=== PATIENT | female | born 1945 | race Caucasian/White ===

== ENCOUNTER → 2016-06-03 | Outpatient (CLI) | payer MEDICARE ==
[~2016-06-03] MED LIST: AMLO10TA2 PO; ASPI-983 PO; ATOR20TA49 PO; BISO1TAB6 PO; FLUT1DIS26 IH; LEVO50TA6 PO; LOSA100T28 PO; METF1000 PO; RT-ALBUINH IH
--- OUTSIDE RECORDS SUMMARY | 2016-06-03 13:58 | XMS REPORT | Continuity of Care Document ---
Author Author [facility] Organization [facility] Address Unknown Phone Unavailable Care Team Providers Care Key Attendant Name Role Phone Marcell Mooney PCP [phone] Source Comments Some departments are not documenting in the electronic medical record. If you do not see the information that you expected, contact Release of Information in the Health Information Management department at [phone] for further assistance in locating additional records.[facility] Active Allergies and Adverse Reactions Allergen Noted Date Severity Reactions Comments Iodine 04/06/2008 NAUSEA AND VOMITING Shellfish Morphine 12/05/2008 NAUSEA ONLY Nitrous Oxide 04/06/2008 SEE COMMENTS Asthma Shellfish Containing 01/13/2009 Products Current Medications Prescription Sig. Disp. Refills Start End Date Status Date PROAIR HFA IN Inhale 2 Puffs by mouth Active three times daily. bisoprolol/hydrochlorothi Take 1 Tab by mouth twice Active azide (ZIAC) 10/6.25 mg daily. Takes at night tablet amLODIPine (NORVASC) 5 mg Take 10 mg by mouth Active PO tablet daily. metFORMIN-XR(+) Take 1,000 mg by mouth Active (GLUCOPHAGE XR) 500 mg PO twice daily. tablet levothyroxine (SYNTHROID) Take 50 mcg by mouth Active 50 mcg tablet daily. CALCIUM PO Take by mouth daily. Active Goal is to take 800 qid, but sometimes cannot stomach taking that many pills per day. ERGOCALCIFEROL (VITAMIN Take 4,000 Units by mouth Active D2) (VITAMIN D PO) daily. aspirin 325 mg tablet Take 325 mg by mouth Active daily. budesonide/formoterol Inhale 1 Puff by mouth Active (SYMBICORT) 160/4.5 mcg twice daily. HFAA inhalation Active Problems Problem Noted Date Osteoporosis 12/26/2012 Other closed fractures of distal end of radius (alone) 05/23/2008 Resolved Problems Problem Noted Date Resolved Date Hyperparathyroidism (HCC) 01/13/2009 01/07/2016 Overview: History Of Present Illness: I recently saw Mariaelena Castro today in the office postoperatively in followup. As you know, she is a very pleasant 63-year-old woman with history of primary hyperparathyroidism from a parathyroid adenoma in the right inferior position, who underwent minimally invasive parathyroidectomy on December 05, 2008. Intraoperatively, she was noted to have a large adenoma weighing 0.75 g and her PTH drop from her baseline of 196 to a final level of 11. Since her surgery, she has noted some dramatic improvement in her symptoms including resolution of her joint and bone pain as well as increased level of alertness. She denies any complaints at this time and is here for her 2-week postoperatively follow visit. This entry was abstracted from the [facility] Medical Record. The original author is Edgar Skinner. Social History Tobacco Use Types Packs/Day Years Used Date Never Smoker Smokeless Tobacco: Never Used Alcohol Use Drinks/Week oz/Week Comments No Last Filed Vital Signs Vital Sign Reading Time Taken Blood Pressure 134/68 01/07/2016 10:50 AM CDT Pulse 69 01/01/2014 11:05 AM CDT Temperature - - Respiratory Rate 17 12/24/2010 10:22 AM CDT Height 1.516 m (4' 11.7") 01/07/2016 10:50 AM CDT Weight 87.998 kg (194 lb) 01/07/2016 10:50 AM CDT Body Mass Index 38.29 01/07/2016 10:50 AM CDT Oxygen Saturation - - Plan of Care Health Maintenance Due Date Last Done Comments Hepatitis C Screening 1945 Physical (Comprehensive) 07/19/1954 Exam Pertussis Vaccine 07/19/1958 Tetanus Vaccine 07/19/1964 Breast Cancer Screening 1987 Colorectal Cancer 07/19/1997 Screening Shingles Vaccine 2007 Prevnar/Pneumovax (#1) 07/19/2012 Influenza Vaccine 11/28/2015 Osteoporosis Screening Completed 01/07/2016, 01/04/2014, 01/06/2013 Additional history exists Results from Last 3 Months Not on file
--- NOTE | 2016-06-04 08:20 | ECHOCARDIOGRAPHY REPORT ---
PROCEDURE PHYSICIAN: INOCENTE RICHARDS DATE OF PROCEDURE: 06/03/2016 TWO DIMENSIONAL ECHOCARDIOGRAM REPORT PRIMARY PHYSICIAN: OTHER PHYSICIAN: REFERRING PHYSICIAN: Dr. Mooney ORDERING PHYSICIAN: INDICATION FOR THE PROCEDURE: MEASUREMENTS DERIVED VALUES LV DIAMETER (LAX) NORMALS NORMALS Diastolic 3.7 (3.6-5.2) Eject. Fract. 60% (60%+/-6%) Systolic (2.3-3.9) Diastolic Vol. % Shortening (0.22-0.42) Systolic Vol. Aortic Root IVS THICKNESS Diastolic 1.2 (0.6-1.1) LVPW THICKNESS Diastolic 1.2 (0.6-1.1) LA DIAMETER Systolic 3.1 (2.1-3.7) FINDINGS: 1. Technically difficult study. 2. The left ventricle is normal in size, endocardium was not well visualized in all segments. Overall systolic function appeared to be normal. Estimated ejection fraction 60%. 3. The left atrium is normal in size. No clot or thrombus were seen within the left atrium. 4. The right atrium and right ventricle are normal in size. No clot or thrombus were seen within the right side. 5. Mitral valve is normal in morphology with mild mitral regurgitation noted by color Doppler flow. No mitral valve prolapse. No mitral valve stenosis. 6. Aortic valve is trileaflet with normal opening and closing pattern. No significant aortic stenosis or regurgitation was seen. 7. Tricuspid valve is normal in morphology with mild tricuspid regurgitation noted by color Doppler flow. Doppler across tricuspid valve estimated pulmonary artery pressure of 9+ right atrial pressure. 8. Pulmonic valve is functioning normally. 9. No pericardial effusion. IN CONCLUSION: 1. Technically difficult study. 2. Normal left ventricular size and systolic function. Estimated ejection fraction 60%. 3. Mild mitral and tricuspid regurgitation. 4. Estimated pulmonary artery pressure of 15 mmHg. Job ID: [id number] Dictated Date: 06/03/2016 17:12:48 Development Manager Date: 06/04/2016 08:18:04 / john
== END ==
LOC: CARD 13:53
PROVIDERS: ATTEND Internal Medicine Cardiovascular Disease
DX: R07.89 Other chest pain (principal); I10 Essential (primary) hypertension; E78.1 Pure hyperglyceridemia; R06.02 Shortness of breath; J45.909 Unspecified asthma, uncomplicated; E11.9 Type 2 diabetes mellitus without complications
CPT/HCPCS: 93306

== ENCOUNTER → 2016-06-10 | Outpatient (CLI) | payer MEDICARE ==
[~2016-06-10] MED LIST changes: +CATHETER FLUSH 10 ML SYR IV PRN; +REGADENOSON 0.4 MG/5 ML SYR (LEXISCAN) IV ONE
--- OUTSIDE RECORDS SUMMARY | 2016-06-10 11:44 | XMS REPORT | Continuity of Care Document ---
Author Author [facility] Organization [facility] Address Unknown Phone Unavailable Care Team Providers Care Sifting Operator Name Role Phone Marcell Mooney PCP [phone] Source Comments Some departments are not documenting in the electronic medical record. If you do not see the information that you expected, contact Release of Information in the Health Information Management department at [phone] for further assistance in locating additional records.[facility] Active Allergies and Adverse Reactions Allergen Noted [...] visit. This entry was abstracted from the [facility] Medical Record. The original author is Edgar [...]
[2016-06-10 13:00] VITALS: BP 175/78
[2016-06-10 13:06] VITALS: BP 175/76
[2016-06-10 13:08] VITALS: BP 168/71
--- NOTE | 2016-06-11 08:50 | STRESS TEST ---
PROCEDURE PHYSICIAN: INOCENTE RICHARDS DATE OF PROCEDURE: 06/10/2016 LEXISCAN MYOVIEW STRESS TEST REPORT: REFERRING PHYSICIAN: Dr. Mooney. INDICATION FOR THE PROCEDURE: Chest pain. BASELINE HEART RATE: 72 BASELINE BLOOD PRESSURE: 175/78 BASELINE EKG: Sinus rhythm with no ischemic changes. IN SUMMARY: The patient was injected with 10.17 mCi of technetium 99 Myoview and the resting images were obtained. Then the patient received 0.4 mg of Lexiscan followed by 30 mCi of technetium 99 Myoview. Throughout the test, there were no EKG changes. The resting and stress images were reviewed and compared in the short axis, horizontal long axis, and vertical long axis views. Review of the images showed breast attenuation. There is reversible ischemia involving the mid to apical inferior wall and the anteroapical segment. SSS 5, SDS 5. TID value 1.03. On the gated images, the left ventricle appeared to be normal size with normal contractility. Calculated ejection fraction 74%. IN CONCLUSION: 1. The patient tolerated Lexiscan well. 2. Breast attenuation affecting the quality of the images with mild ischemia involving the mid to apical inferior wall and anteroapical segment. 3. Normal left ventricular size with normal contractility. Calculated ejection fraction 74%. Job ID: [id number] Dictated Date: 06/10/2016 15:53:00 Service Cashier Date: 06/11/2016 08:46:48 / john
== END ==
LOC: CARD 11:41
PROVIDERS: ATTEND Internal Medicine Cardiovascular Disease
DX: R07.89 Other chest pain (principal); I10 Essential (primary) hypertension; E78.1 Pure hyperglyceridemia; R06.02 Shortness of breath; J45.909 Unspecified asthma, uncomplicated; E11.9 Type 2 diabetes mellitus without complications
CPT/HCPCS: 78452; 93017

== ENCOUNTER 2016-06-16 12:38 | Day surgery (SDC) | payer MEDICARE ==
[2016-06-16] VITALS (7 sets, daily range): BP systolic 125–145; BP diastolic 56–77
[~2016-06-16] VITALS: Ht 154.9 cm; Wt 88.5 kg
[2016-06-16] MEDS ORDERED: HEParin (CATH LAB) 2,000 ML IV ONE (12:43)
[2016-06-16] MEDS ORDERED: LIDOCAINE 1% INJ 20 ML (XYLOCAINE) VIAL ONE (12:43)
[2016-06-16] MEDS ORDERED: NS IV 1000 ML 1,000 ML ONE (12:43)
[2016-06-16] MEDS ORDERED: NS IV 1000 ML 1,000 ML IV SCH ×3 (12:50→15:28)
[2016-06-16] MEDS ORDERED: FLUT1DIS26 IH (13:07)
[2016-06-16] MEDS ORDERED: LEVO50TA6 PO (13:07)
[2016-06-16] MEDS ORDERED: RT-ALBUINH IH (13:07)
[2016-06-16] MEDS ORDERED: AMLO10TA2 PO (13:07)
[2016-06-16] MEDS ORDERED: METF1000 PO (13:07)
[2016-06-16] MEDS ORDERED: ASPI-983 PO (13:07)
[2016-06-16] MEDS ORDERED: LOSA100T28 PO (13:07)
[2016-06-16] MEDS ORDERED: BISO1TAB6 PO (13:07)
[2016-06-16] MEDS ORDERED: ATOR20TA49 PO (13:07)
[2016-06-16 13:16] LABS: BILIRUBIN,URINE NEGATIVE (NEGATIVE); KETONES,URINE NEGATIVE (NEGATIVE); LEUKOCYTE ESTERASE ,URINE 1+ (NEGATIVE); NITRITE,URINE NEGATIVE (NEGATIVE); PH,URINE 5 (5-9); PROTEIN,URINE NEGATIVE (NEGATIVE); UROBILINOGEN,URINE NORMAL (NORMAL)
[2016-06-16 13:17] LABS: MEAN PLATELET VOLUME 9.7 FL (7.4-10.4); RED BLOOD COUNT 4.52 10^6/uL (4.35-5.85); RED CELL DISTRIBUTION WIDTH 13.2 % (10.0-14.5); WHITE BLOOD COUNT 7.3 10^3/uL (4.3-11.0)
[2016-06-16 13:27] LABS: SQUAMOUS EPITHELIAL CELL,UR 0-2 /HPF; WBC,URINE 0-2 /HPF
--- NOTE | 2016-06-16 13:29 | Diagnostic Imaging Report ---
INDICATION: Chest pain. DISCUSSION: A single portable upright view of the chest was obtained with comparison to 07/17/2006. Stable normal heart size. No focal consolidation, pleural fluid, or pneumothorax. No osseous abnormality. IMPRESSION: Negative portable chest. Dictated by: Dictated on workstation # [id number]
[2016-06-16 13:30] LABS: PROTHROMBIN TIME PATIENT 12.6 SEC (12.2-14.7)
[2016-06-16 13:39] LABS: ALANINE AMINOTRANSFERASE 23 U/L (0-55); ALBUMIN 4.4 G/DL (3.2-4.5); ANION GAP 11 MMOL/L (5-14); ASPARTATE AMINO TRANSFERASE 16 U/L (5-34); BILIRUBIN,TOTAL 0.9 MG/DL (0.1-1.0); BLOOD UREA NITROGEN 15 MG/DL (7-18); BUN/CREATININE RATIO 19; CALCIUM 9.2 MG/DL (8.5-10.1); CARBON DIOXIDE 25 MMOL/L (21-32); CHLORIDE 106 MMOL/L (98-107); CREATININE SERUM 0.79 MG/DL (0.60-1.30); GFR ESTIMATED > 60; GLUCOSE 130 MG/DL (70-105); POTASSIUM 3.8 MMOL/L (3.6-5.0); SODIUM 142 MMOL/L (135-145); TOTAL PROTEIN 7.5 G/DL (6.4-8.2)
[2016-06-16] MEDS ORDERED: FLU TRIvalent (5 YOA+) 2016-17 (AFLURIA) 0.5 ML IM ONE (13:45)
[2016-06-16] MEDS ORDERED: diphenhydrAMINE 50 MG/ML INJ (BENADRYL) ONE (14:08)
[2016-06-16] MEDS ORDERED: methylPREDNISolone 125 MG (Solu-MEDROL) VIAL ONE (14:08)
[2016-06-16] MEDS ORDERED: MIDAZOLAM 5 MG/5 ML (VERSED) VIAL ONE ×2 (14:08→14:54)
[2016-06-16] MEDS ORDERED: fentaNYL INJECTION 100 MCG/2 ML AMP ONE ×2 (14:08→14:54)
--- NOTE | 2016-06-16 15:28 | Cardiac Procedure Note-CS/ASA ---
Pre-Procedure Note Pre-Op Procedure Note H&P Reviewed The H&P was reviewed, patient examined and no changes noted. Date H&P Reviewed: Jun 16, 2016 Time H&P Reviewed: 15:28 Conscious Sedation Pre-Proced Time Reviewed: 15:28 ASA Class: 3 Airway Mallampati Classification: ([place] appropriate class) I. II. III, IV Lungs Heart ASA score ASA 1: a normal healthy patient ASA 2: a patient with a mild systemic disease (mid diabetes, controlled hypertension, obesity x ASA 3: a patient with a severe systemic disease that limits activity (angina , COPD, prior Myocardial infarction) ASA 4: a patient with an incapacitating disease that is a constant threat to life (CHF, renal failure) ASA 5: a moribund patient not expected to survive 24 hrs. (ruptured aneurysm) ASA 6: a declared brain patient whose organs are being harvested. For emergent operations, add the letter E after the classification Grade 3 Sedation Plan: Analgesia, Amnesia, Plan communicated to team members, Discussed options with patient/fam, Discussed risks with patient/fam Note The patient is an appropriate candidate to undergo the planned procedure, sedation, and anesthesia. The patient immediately re-assessed prior to indication. INOCENTE RICHARDS MD Jun 16, 2016 15:28
[2016-06-16] MEDS ORDERED: PATIENT MAY USE OWN MEDS, ALL PO SCH (15:30)
--- NOTE | 2016-06-16 15:31 | Discharge Inst-Post CATH ---
Discharge Inst-CATH Post Cardiac Cath D/C Inst Follow Up/Plan Hold Metfromin for [address] Whitman's office in 2-4 weeks CARDIAC CATH DISCHARGE INSTRUCTIONS *Hold Metformin for 48 hours post heart cath. ACTIVITY * Go Home directly and rest. * Limit activity of the leg (or wrist if it was used) for 7 days including aerobics, swimming, jogging, bicycling, etc. * Restrict stair-climbing for 7 days if possible, if not, climb up with your non -cath leg, then bring together on the same step. * Avoid lifting, pushing, pulling or excessive movement of the affected extremity for 7 days. * Customary sexual activity may be resumed after 2 days-use caution not to use a position that strains or causes pain to the affected extremity. * No driving for 24 hours. * NO SMOKING. * Avoid straining for bowel movements for 7 days. * Gentle walking on level ground is allowed. * Returning to work will depend on the type of procedure and the results. Your doctor will discuss this with you. CALL YOUR DOCTOR FOR ANY OF THE FOLLOWING: *If bleeding from the puncture site occurs- Apply gentle pressure to site with clean cloth and call your doctor or EMS. * If a knot or lump forms under the skin, increases in size, or causes pain. * If bruising appears to be worsening or moving further down your leg instead of disappearing. * Temperature above 101 F. CARE OF YOUR GROIN INCISION; * Bruising or purple discoloration of the skin near the puncture site is common. * You may shower only, no bathtub bathing for 5 days. Be careful to avoid slipping as your leg may feel stiff. * If a closure device was used on your femoral artery, please see the attached guide regarding care of the device and your leg. * REMOVE the dressing from your groin the next day after your procedure in the shower. CARE OF YOUR WRIST INCISION; * Bruising or purple discoloration of the skin near the puncture site is common. * You may shower. * DO NOT submerge wrist. * Remove dressing in 24 hours. INOCENTE WHITMAN MD Jun 16, 2016 15:31
[2016-06-16] MEDS ORDERED: CATHETER FLUSH 10 ML SYR IV PRN (16:30)
--- NOTE | 2016-06-17 09:57 | DISCHARGE SUMMARY ---
PROCEDURE PHYSICIAN: INOCENTE RICHARDS DATE OF PROCEDURE: 06/16/2016 REFERRING PHYSICIAN: Dr. Katherine Mooney. BRIEF HISTORY: Mrs. Castro is a 70-year-old lady with history of diabetes mellitus, hypertension, and hyperlipidemia. She has an abnormal stress test with anterior wall ischemia. She was scheduled for left heart catheterization, possible PTCA. PROCEDURE NOTE: After explaining the procedure to the patient, all pros and cons were explained. All questions were answered. The patient signed a consent, then she was placed on the cardiac catheterization laboratory. The right groin was prepped in a sterile fashion. Local anesthesia applied to the right groin. 6-[place] sheath was placed in the right femoral artery. Combination of right and left Iván catheter were used to access the right and left coronary system. Multiple views were obtained. Pigtail catheter advanced to the left ventricular cavity. Left ventricular pressure was done. No left ventriculogram was done. Pullback LV to aorta was done. The aortic arch angiogram was done. At the end of the procedure, sheath was removed. Mynx device deployed. Hemostasis achieved. FINDINGS: HEMODYNAMICS: LV pressure 153/21, end-diastolic pressure of 21, aortic pressure 142/61, mean of 89. No significant gradient across the aortic valve. ANATOMY: 1. Left main coronary artery is bifurcating to left anterior descending and left circumflex artery with no obstructive disease. 2. Left anterior descending artery is moderate in size with mild disease, nonobstructive disease. 3. Left circumflex artery is moderate in size with mild disease, nonobstructive disease. 4. Right coronary artery is small to moderate in size with mild disease. No significant obstructive disease. 5. No left ventriculogram was done. 6. Aortic arch appeared to be normal in size. No dissection or aneurysm. Origin of the innominate artery, carotid artery and subclavian artery appeared normal. CONCLUSION: 1. Mild coronary artery disease. No significant obstructive disease. 2. Normal aortic arch and great neck vessels. DISCUSSION AND RECOMMENDATION: Medical therapy is recommended. The stress test is abnormal probably due to extra cardiac attenuation. FINAL DIAGNOSIS: 1. Chest pain, nonspecific etiology. 2. Coronary artery disease. 3. Hypertension. 4. Hyperlipidemia. 5. Diabetes mellitus. Job ID: [id number] Dictated Date: 06/16/2016 15:36:22 Night Time Babysitter Date: 06/17/2016 09:55:03/priscilla
== END 2016-06-16 20:15 | disposition home or self-care (01) ==
LOC: CATH 12:38 → ICU 15:34 → CATH 20:15
PROVIDERS: ATTEND Internal Medicine Cardiovascular Disease
DX: R94.39 Abnormal result of other cardiovascular function study (principal); I25.10 Atherosclerotic heart disease of native coronary artery without angina pectoris; R07.89 Other chest pain; E11.9 Type 2 diabetes mellitus without complications; E78.5 Hyperlipidemia, unspecified; I10 Essential (primary) hypertension; J45.909 Unspecified asthma, uncomplicated; Z79.84 Long term (current) use of oral hypoglycemic drugs; Z79.899 Other long term (current) drug therapy
CPT/HCPCS: 36221; 36415; 71010; 80053; 81000; 85027; 85610; 85730; 87081; 93005; 93458

== ENCOUNTER 2017-11-14 09:39 | Emergency (ER) | payer MEDICARE ==
[~2017-11-14] VITALS: Ht 156.2 cm; Wt 88.0 kg
[~2017-11-14 09:39] MED LIST changes: -CATHETER FLUSH 10 ML SYR IV PRN; -METF1000 PO; +METF10002 PO; -REGADENOSON 0.4 MG/5 ML SYR (LEXISCAN) IV ONE
--- OUTSIDE RECORDS SUMMARY | 2017-11-14 09:43 | XMS REPORT | Clinical Summary ---
Author Author [facility] Organization [facility] Address Unknown Phone Unavailable Care Team Providers Care Interior Design Principal Name Role Phone Corin Dempsey MD Unavailable Edgar Skinner MD Unavailable Annabel Ramos MD Unavailable Katherine Mooney MD PCP Source Comments Some departments are not documenting in the electronic medical record. If you do not see the information that you expected, contact Release of Information in the Health Information Management department at [phone] for further assistance in locating additional records.[facility] Allergies Active Allergy Reactions Severity Noted Date Comments Iodine NAUSEA AND VOMITING 04/06/2008 Shellfish Morphine NAUSEA ONLY 12/05/2008 Nitrous Oxide SEE COMMENTS 04/06/2008 Asthma Shellfish Containing 01/13/2009 Products Current Medications [...] visit. This entry was abstracted from the [facility] Medical Record. The original author is Edgar Skniner. Family History Medical History Relation Name Comments Heart Disease Brother Heart Disease Father Thyroid Disease Father Stroke Mother Thyroid Disease Mother Heart Disease Sister Relation Name Status Comments Brother Alive Father Mother Sister Alive Social History Tobacco Use Types Packs/Day Years Used Date Never Smoker Smokeless Tobacco: Never Used Alcohol Use Drinks/Week oz/Week Comments No Sex Assigned at Date Recorded Not on file Last Filed Vital Signs Vital Sign Reading Time Taken Blood Pressure 134/68 01/07/2016 10:50 AM CDT Pulse 69 01/01/2014 11:05 AM CDT Temperature - - Respiratory Rate 17 12/24/2010 10:22 AM CDT Oxygen Saturation - - Inhaled Oxygen - - Concentration Weight 88 kg (194 lb) 01/07/2016 10:50 AM CDT Height 151.6 cm (4' 11.7") 01/07/2016 10:50 AM CDT Body Mass Index 38.27 01/07/2016 10:50 AM CDT Plan of Treatment Health Maintenance Due Date Last Done Comments HEPATITIS C SCREENING 1945 PHYSICAL (COMPREHENSIVE) 07/19/1954 EXAM PERTUSSIS VACCINE 07/19/1958 TETANUS VACCINE 07/19/1964 BREAST CANCER SCREENING 1987 COLORECTAL CANCER 07/19/1997 SCREENING SHINGLES RECOMBINANT 07/19/1997 VACCINE (1 of 2) PNEUMONIA (PCV13/PPSV23) 07/19/2012 VACCINES (1 of 2 - PCV13) INFLUENZA VACCINE 12/27/2017 OSTEOPOROSIS SCREENING Completed 01/07/2016, 01/04/2014, 01/06/2013, Additional history exists Results Not on filefrom Last 3 Months
--- OUTSIDE RECORDS SUMMARY | 2017-11-14 09:47 | XMS REPORT | CCD ---
Author Author Katherine Mooney Organization [facility] Address [address] [place] [address] Phone Care Team Providers Care D[employer] Farmer Name Role Phone Katherine Mooney PP Unavailable CCM Unavailable Summary Purpose Interface Exchange Insurance Providers Payer name Policy type / Coverage type Covered democrat ID Effective Begin Date Effective End Date WPS Medicare Part B [id number] 2014 Unknown [facility] [id number] 2014 Unknown Family history Sister Diagnosis Age At Onset No Family Disease Entered N/A Brother Diagnosis Age At Onset No Family Disease Entered N/A Brother Diagnosis Age At Onset No Family Disease Entered N/A Mother Diagnosis Age At Onset No Family Disease Entered N/A Father Diagnosis Age At Onset No Family Disease Entered N/A Social History Social History Element Codes Description Effective Dates Marital status Unknown 01/07/2011 Employment Unknown 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 Unknown Has never used illegal drugs 01/07/2011 Allergies, Adverse Reactions, Alerts Substance Reaction Codes Entered Date Inactivated Date Status Shellfish hives Unknown 03/04/2011 No Inactive Date Active Past Medical History Illness Codes Condition Status Onset Date Resolved Date Essential (primary) hypertension ICD-9: 401.1 ICD-10: I10 Active 05/25/2016 Unknown Hypothyroidism, unspecified ICD-9: 244.9 ICD-10: E03.9 Active 06/06/2015 Unknown Mixed hyperlipidemia ICD-9: 272.2 ICD-10: E78.2 Active 05/25/2016 Unknown Type 2 diabetes mellitus with hyperglycemia ICD-9: 250.02 ICD-10: E11.65 Active 06/06/2015 Unknown Encounter for general adult medical examination with abnormal findings ICD-9: V70.0 ICD-10: Z00.01 Active 07/16/2016 Unknown Mixed hyperlipidemia ICD-9: 272.4 ICD-10: E78.2 Active 06/06/2015 Unknown Cough ICD-9: 786.2 ICD-10: R05 Active 06/04/2016 Unknown Encounter for general adult medical examination without abnormal findings ICD-9: V70.0 ICD-10: Z00.00 Active 07/03/2015 Unknown Body mass index (BMI) 38.0-38.9, adult ICD-9: V85.38 ICD-10: Z68.38 Active 06/06/2015 Unknown Essential (primary) hypertension ICD-9: 401.9 ICD-10: I10 Active 06/06/2015 Unknown Primary hyperparathyroidism ICD-9: 252.01 ICD-10: E21.0 Active 06/06/2015 Unknown Depression Unknown Active 11/05/2014 Unknown Depression ICD-9: 311 Active 11/04/2014 Unknown Paronychia of finger of left hand ICD-9: 681.02 Active 2014 Unknown DIABETES TYPE II ICD-9 : 250.00 Active 07/17/2014 Unknown Asthma ICD-9: 493.90 Active 04/20/2014 Unknown Diabetes mellitus type 2, uncontrolled ICD-9: 250.02 Active Unknown Elevated lipids ICD-9 : 272.4 Active 04/20/2014 Unknown ESSENTIAL HYPERTENSION ICD-9: 401.9 Active 04/20/2014 Unknown Hypothyroidism ICD-9: 244.9 Active 04/20/2014 Unknown Need for pneumococcal vaccine ICD-9: V03.82 Active 07/12/2013 Unknown Hypothryroidism Unknown Active 04/22/2012 Unknown Hyperlipidemia Unknown Active 11/10/2011 Unknown Encounter for long-term (current) use of medications ICD-9: V58.69 Active 11/03/2011 Unknown Allergic reaction ICD- 9: 995.3 Active 07/14/2011 Unknown Itching ICD-9: 698.9 Active 07/14/2011 Unknown Tick bite ICD-9: 919.4 Active 07/14/2011 Unknown Bone pain ICD-9: 733.90 Active 06/03/2011 Unknown Asthma Unknown Active 01/07/2011 Unknown Diabetes Unknown Active 01/07/2011 Unknown Hypertension Unknown Active 01/07/2011 Unknown Osteoarthritis Unknown Active 01/07/2011 Unknown Osteoporosis Unknown Active 01/07/2011 Unknown DIETARY SURVEIL/NURSE DISCHARGE ICD-9: V65.3 Active 01/07/2011 Unknown OBESITY ICD-9: 278.00 Active 01/07/2011 Unknown Osteoporosis ICD-9: 733.00 Active 01/07/2011 Unknown Problems Condition Codes Effective Dates Condition Status Essential (primary) hypertension ICD-9: 401.1 ICD-10: I10 05/25/2016 Active Hypothyroidism, unspecified ICD-9: 244.9 ICD-10: E03.9 06/06/2015 Active Mixed hyperlipidemia ICD-9: 272.2 ICD-10: E78.2 05/25/2016 Active Type 2 diabetes mellitus with hyperglycemia ICD-9: 250.02 ICD-10: E11.65 06/06/2015 Active Encounter for general adult medical examination with abnormal findings ICD-9: V70.0 ICD-10: Z00.01 07/16/2016 Active Mixed hyperlipidemia ICD-9: 272.4 ICD-10: E78.2 06/06/2015 Active Cough ICD-9: 786.2 ICD-10: R05 06/04/2016 Active Encounter for general adult medical examination without abnormal findings ICD-9: V70.0 ICD-10: Z00.00 07/03/2015 Active Body mass index (BMI) 38.0-38.9, adult ICD-9: V85.38 ICD-10: Z68.38 06/06/2015 Active Essential (primary) hypertension ICD-9: 401.9 ICD-10: I10 06/06/2015 Active Primary hyperparathyroidism ICD-9: 252.01 ICD-10: E21.0 06/06/2015 Active Depression Unknown 11/05/2014 Active Depression ICD-9: 311 11/04/2014 Active Paronychia of finger of left hand ICD-9: 681.02 11/04/2014 Active DIABETES TYPE II ICD-9 : 250.00 07/17/2014 Active Asthma ICD-9: 493.90 04/20/2014 Active Diabetes mellitus type 2, uncontrolled ICD-9: 250.02 04/20/2014 Active Elevated lipids ICD-9 : 272.4 04/20/2014 Active ESSENTIAL HYPERTENSION ICD-9: 401.9 04/20/2014 Active Hypothyroidism ICD-9: 244.9 04/20/2014 Active Need for pneumococcal vaccine ICD-9: V03.82 07/12/2013 Active Hypothryroidism Unknown 04/22/2012 Active Hyperlipidemia Unknown 11/10/2011 Active Encounter for long-term (current) use of medications ICD-9: V58.69 11/03/2011 Active Allergic reaction ICD- 9: 995.3 07/14/2011 Active Itching ICD-9: 698.9 07/14/2011 Active Tick bite ICD-9: 919.4 07/14/2011 Active Bone pain ICD-9: 733.90 06/03/2011 Active Asthma Unknown 01/07/2011 Active Diabetes Unknown 01/07/2011 Active Hypertension Unknown 01/07/2011 Active Osteoarthritis Unknown 01/07/2011 Active Osteoporosis Unknown 01/07/2011 Active DIETARY SURVEIL/NURSE DISCHARGE ICD-9: V65.3 01/07/2011 Active OBESITY ICD-9: 278.00 01/07/2011 Active Osteoporosis ICD-9: 733.00 01/07/2011 Active Medications Medication Codes Instructions Start Date Stop Date Status Fill Instructions metformin 1,000 mg tablet RxNorm: 495063 TAKE ONE TABLET BY MOUTH TWICE A DAY 04/23/2017 06/21/2017 Active Synthroid 75 mcg tablet RxNorm: 149326 1 Tablet(s) PO daily TAKE ONE TABLET BY MOUTH DAILY 03/02/2017 11/26/2017 Active Ventolin HFA 90 mcg/actuation aerosol inhaler RxNorm: 077244 1-2 Puff(s) INH Q4 PRN 03/02/2017 No Stop Date Active Synthroid 50 mcg tablet RxNorm: 656235 TAKE ONE TABLET BY MOUTH DAILY 12/30/2016 03/01/2017 Inactive metformin 1,000 mg tablet RxNorm: 515251 TAKE ONE TABLET BY MOUTH TWICE A DAY 11/16/2016 12/15/2016 Inactive metformin 1,000 mg tablet RxNorm: 328771 TAKE ONE TABLET BY MOUTH TWICE A DAY 11/16/2016 11/15/2016 Inactive metformin 1,000 mg tablet RxNorm: 596579 TAKE ONE TABLET BY MOUTH TWICE A DAY 10/12/2016 11/10/2016 Inactive Synthroid 50 mcg tablet RxNorm: 601349 TAKE ONE TABLET BY MOUTH DAILY 10/05/2016 12/29/2016 Inactive metformin 1,000 mg tablet RxNorm: 005570 TAKE ONE TABLET BY MOUTH TWICE A DAY 09/08/2016 10/07/2016 Inactive metformin 1,000 mg tablet RxNorm: 041025 TAKE ONE TABLET BY MOUTH TWICE A DAY 08/06/2016 09/04/2016 Inactive amlodipine 10 mg tablet RxNorm: 687401 Tablet(s) TAKE ONE TABLET BY MOUTH DAILY 07/31/2016 07/25/2017 Active amlodipine 10 mg tablet RxNorm: 453938 TAKE ONE TABLET BY MOUTH DAILY 07/30/2016 07/29/2016 Inactive amlodipine 10 mg tablet RxNorm: 364659 TAKE ONE TABLET BY MOUTH DAILY 07/30/2016 07/30/2016 Inactive Advair Diskus 250 mcg-50 mcg/dose powder for inhalation RxNorm: 8924382 INHALE ONE PUFF BY MOUTH TWICE A DAY 07/21/2016 06/15/2017 Active metformin 1,000 mg tablet RxNorm: 013071 TAKE ONE TABLET BY MOUTH TWICE A DAY 07/06/2016 08/04/2016 Inactive atorvastatin 20 mg tablet RxNorm: 603652 1 Tablet(s) PO daily 06/22/2016 03/01/2017 Inactive atorvastatin 20 mg tablet RxNorm: 862715 1 Tablet(s) PO TIW 06/21/2016 Inactive metoprolol succ 50 mg-hydrochlorothiazide 12.5 mg tablet, ext.rel 24 hr RxNorm: 783753 1 Tablet(s) PO QPM 05/25/20162016 Inactive Synthroid 50 mcg tablet RxNorm: 145736 TAKE ONE TABLET BY MOUTH DAILY 05/12/2016 10/04/2016 Inactive Ziac 10 mg-6.25 mg tablet RxNorm: 095349 TAKE ONE TABLET BY MOUTH TWICE A DAY 05/11/2016 05/24/2016 Inactive metformin 1,000 mg tablet RxNorm: 670953 TAKE ONE TABLET BY MOUTH TWICE A DAY 04/27/2016 06/25/2016 Inactive ProAir HFA 90 mcg/actuation aerosol inhaler RxNorm: 205342 INHALE TWO PUFFS BY MOUTH THREE TIMES A DAY 04/27/20162016 Inactive amlodipine 10 mg tablet RxNorm: 124511 TAKE ONE TABLET BY MOUTH DAILY 03/27/2016 07/24/2016 Inactive metformin 1,000 mg tablet RxNorm: 897759 TAKE ONE TABLET BY MOUTH TWICE A DAY 01/23/2016 04/21/2016 Inactive amlodipine 10 mg tablet RxNorm: 106953 TAKE ONE TABLET BY MOUTH DAILY 12/25/2015 03/23/2016 Inactive Synthroid 50 mcg tablet RxNorm: 671373 TAKE ONE TABLET BY MOUTH DAILY 11/15/2015 05/11/2016 Inactive Synthroid 50 mcg tablet RxNorm: 989677 TAKE ONE TABLET BY MOUTH DAILY 09/16/2015 11/14/2015 Inactive amlodipine 10 mg tablet RxNorm: 761526 TAKE ONE TABLET BY MOUTH DAILY 09/03/2015 12/01/2015 Inactive Tamiflu 75 mg capsule RxNorm: 103427 1 Capsule(s) PO BID 201507/22/2015 Inactive Tamiflu 75 mg capsule RxNorm: 739520 1 Capsule(s) PO BID 201507/27/2015 Inactive Synthroid 50 mcg tablet RxNorm: 930693 TAKE ONE TABLET BY MOUTH DAILY 06/21/2015 09/15/2015 Inactive Advair Diskus 250 mcg-50 mcg/dose powder for inhalation RxNorm: 1238007 1 Puff(s) INH BID 06/20/2015 06/13/2016 Inactive ONE PUFF BY INHALATION TWICE DAILY . Advair Diskus 250 mcg-50 mcg/dose powder for inhalation RxNorm: 2509872 1 Puff(s) INH BID 06/10/2015 06/19/2015 Inactive ONE PUFF BY INHALATION TWICE DAILY . Advair Diskus 250 mcg-50 mcg/dose powder for inhalation RxNorm: 1442105 1 Puff(s) INH BID 06/07/2015 06/09/2015 Inactive ONE PUFF BY INHALATION TWICE DAILY . Ziac 10 mg-6.25 mg tablet RxNorm: 113144 1 Tablet(s) PO BID 02/201601/04/2016 Inactive ProAir HFA 90 mcg/actuation aerosol inhaler RxNorm: 239041 2 Puff(s) INH TID INHALE 2 PUFFS BY MOUTH THREE TIMES DAILY 05/01/2015 11/26/2015 Inactive Ziac 10 mg-6.25 mg tablet RxNorm: 371698 Tablet(s) BID TABLET(S) PO 04/16/2015 05/09/2015 Inactive amlodipine 10 mg tablet RxNorm: 990356 TAKE ONE TABLET BY MOUTH DAILY 04/15/2015 08/12/2015 Inactive metformin 1,000 mg tablet RxNorm: 819617 1 TABLET(S) BID 1 TABLET(S) PO BID 03/15/2015 06/12/2015 Inactive Patient requests 90 days supply metformin 1,000 mg tablet RxNorm: 842572 1 Tablet(s) PO BID 1 TABLET(S) PO BID 03/14/2015 09/09/2015 Inactive metformin 1,000 mg tablet RxNorm: 334681 1 Tablet(s) BID 1 TABLET(S) PO BID 03/13/2015 03/13/2015 Inactive Synthroid 50 mcg tablet RxNorm: 247801 Tablet(s) PO TAKE ONE TABLET BY MOUTH DAILY 02/26/2015 06/20/2015 Inactive metformin 1,000 mg tablet RxNorm: 797874 1 Tablet(s) BID 1 TABLET(S) PO BID 11/26/2014 12/03/2014 Inactive cephalexin 500 mg tablet RxNorm: 836023 1 Tablet(s) PO TID 02/201511/06/2014 Inactive cephalexin 500 mg tablet RxNorm: 527699 1 Tablet(s) PO TID 02/201511/13/2014 Inactive Prozac 10 mg capsule RxNorm: 034360 1 Capsule(s) PO daily 11/0507/03/2015 Inactive Synthroid 50 mcg tablet RxNorm: 758439 Tablet(s) PO TAKE ONE TABLET BY MOUTH DAILY 07/17/2014 02/25/2015 Inactive ProAir HFA 90 mcg/actuation aerosol inhaler RxNorm: 614863 2 Puff(s) INH TID INHALE 2 PUFFS BY MOUTH THREE TIMES DAILY 07/17/2014 02/11/2015 Inactive amlodipine 10 mg tablet RxNorm: 855099 Tablet(s) 1 TABLET(S) PO DAILY 07/17/2014 04/14/2015 Inactive lovastatin 20 mg tablet RxNorm: 252840 Tablet(s) TAKE 1 TABLET BY MOUTH EVERY NIGHT AT BEDTIME 07/17/2014 01/12/2015 Inactive Advair Diskus 250 mcg-50 mcg/dose powder for inhalation RxNorm: 4351542 1 Puff(s) INH BID 07/17/2014 07/16/2014 Inactive ONE PUFF BY INHALATION TWICE DAILY . metformin 1,000 mg tablet RxNorm: 739835 Tablet(s) 1 TABLET(S) PO BID 07/17/2014 11/25/2014 Inactive Ziac 10 mg-6.25 mg tablet RxNorm: 551756 Tablet(s) TABLET(S) PO 07/17/2014 04/12/2015 Inactive TAKE 1 TABLET BY MOUTH TWICE DAILY . Advair Diskus 250 mcg-50 mcg/dose powder for inhalation RxNorm: 9496315 1 Puff(s) INH BID 07/17/2014 06/06/2015 Inactive ONE PUFF BY INHALATION TWICE DAILY . lovastatin 20 mg tablet RxNorm: 173953 TAKE 1 TABLET BY MOUTH EVERY NIGHT AT BEDTIME 05/31/2014 07/16/2014 Inactive lovastatin 20 mg tablet RxNorm: 619914 1 Tablet(s) PO QHS TAKE 1 TABLET BY MOUTH EVERY NIGHT AT BEDTIME 05/29/20142014 Inactive Synthroid 50 mcg tablet RxNorm: 226421 1 TABLET(S) PO DAILY TAKE ONE TABLET BY MOUTH DAILY 03/02/2014 07/16/2014 Inactive Synthroid 50 mcg tablet RxNorm: 433954 1 Tablet(s) PO daily TAKE ONE TABLET BY MOUTH DAILY 03/02/2014 05/30/2014 Inactive metformin 1,000 mg tablet RxNorm: 912129 1 TABLET(S) PO BID 07/16/2014 Inactive Ziac 10 mg-6.25 mg tablet RxNorm: 537317 TABLET(S) PO 201307/16/2014 Inactive TAKE 1 TABLET BY MOUTH TWICE DAILY . Symbicort 160 mcg-4.5 mcg/actuation HFA aerosol inhaler RxNorm: 5741634 1 INH BID 10/29/2013 10/23/2014 Inactive amlodipine 10 mg tablet RxNorm: 354074 1 TABLET(S) PO DAILY 07/16/2014 Inactive Synthroid 50 mcg tablet RxNorm: 874372 1 Tablet(s) PO daily TAKE ONE TABLET BY MOUTH DAILY 10/02/2013 03/01/2014 Inactive ProAir HFA 90 mcg/actuation aerosol inhaler RxNorm: 5206132 2 Puff(s) INH TID INHALE 2 PUFFS BY MOUTH THREE TIMES DAILY 10/02/2013 04/29/2014 Inactive lovastatin 20 mg tablet RxNorm: 885782 Tablet(s) PO TAKE 1 TABLET BY MOUTH EVERY NIGHT AT BEDTIME 08/24/2013 05/28/2014 Inactive metformin 1,000 mg tablet RxNorm: 490047 1 Tablet(s) PO BID 02/13/2014 Inactive metformin 1,000 mg tablet RxNorm: 405737 1 Tablet(s) PO BID 07/18/2013 Inactive metformin 500 mg tablet RxNorm: 556003 2 Tablet(s) PO BID TAKE 1 TABLET BY MOUTH TWICE DAILY 07/17/2013 07/18/2013 Inactive Synthroid 50 mcg tablet RxNorm: 900387 Tablet(s) PO TAKE ONE TABLET BY MOUTH DAILY 07/13/2013 10/01/2013 Inactive Pneumovax 23 25 mcg/0.5 mL injection RxNorm: 490170 1/2 Milliliter(s) Inj 07/12/2013 07/12/2013 Inactive lovastatin 20 mg tablet RxNorm: 317193 Tablet(s) PO TAKE 1 TABLET BY MOUTH EVERY NIGHT AT BEDTIME 07/03/2013 08/23/2013 Inactive Patient requests 90 days supply* * lovastatin 20 mg tablet RxNorm: 521302 Tablet(s) PO TAKE 1 TABLET BY MOUTH EVERY NIGHT AT BEDTIME 06/30/2013 07/02/2013 Inactive Synthroid 50 mcg tablet RxNorm: 475454 Tablet(s) PO TAKE ONE TABLET BY MOUTH DAILY 04/24/2013 07/16/2014 Inactive FreeStyle Lite Strips RxNorm: strip miscellaneous TEST TWICE DAILY 04/03/2013 No Stop Date Active Ziac 10 mg-6.25 mg tablet RxNorm: 677606 Tablet(s) PO 201201/28/2014 Inactive TAKE 1 TABLET BY MOUTH TWICE DAILY . Synthroid 50 mcg tablet RxNorm: 463014 1 Tablet(s) PO daily TAKE ONE TABLET BY MOUTH DAILY 11/10/2012 04/23/2013 Inactive metformin 500 mg tablet RxNorm: 198989 1 Tablet(s) PO BID TAKE 1 TABLET BY MOUTH TWICE DAILY 10/24/2012 07/16/2013 Inactive Symbicort 160 mcg-4.5 mcg/actuation HFA aerosol inhaler RxNorm: 8377160 1 INH BID 09/21/2012 10/15/2013 Inactive Symbicort 160 mcg-4.5 mcg/actuation HFA Aerosol Inhaler RxNorm: 2123732 1 INH BID 09/21/2012 09/20/2012 Inactive ProAir HFA 90 mcg/actuation Aerosol Inhaler RxNorm: 3016580 INH INHALE 2 PUFFS BY MOUTH THREE TIMES DAILY 09/21/20122013 Inactive ProAir HFA 90 mcg/actuation Aerosol Inhaler RxNorm: 782387 HFA Aerosol Inhaler INH INHALE 2 PUFFS BY MOUTH THREE TIMES DAILY 09/20/2012 09/20/2012 Inactive amlodipine 10 mg tablet RxNorm: 421523 Tablet(s) PO TAKE 1 TABLET BY MOUTH DAILY 08/29/2012 No Stop Date Active Synthroid 50 mcg tablet RxNorm: 737432 Tablet(s) PO TAKE ONE TABLET BY MOUTH DAILY 06/01/2012 11/09/2012 Inactive lovastatin 20 mg tablet RxNorm: 838511 Tablet(s) PO TAKE 1 TABLET BY MOUTH EVERY NIGHT AT BEDTIME 06/01/2012 06/29/2013 Inactive FreeStyle Lite Strips RxNorm: Miscellaneous BID 03/21/2012 04/02/2013 Inactive Ziac 10 mg-6.25 mg tablet RxNorm: 341073 Tablet(s) PO 201102/07/2013 Inactive TAKE 1 TABLET BY MOUTH TWICE DAILY . metformin 500 mg tablet RxNorm: 816620 Tablet(s) PO 01/14/2012 07/16/2014 Inactive TAKE 1 TABLET BY MOUTH TWICE DAILY Trilipix 135 mg capsule,delayed release RxNorm: 665750 0 Capsule(s) PO daily hold for two weeks then take 3 x a week 12/17/2011 12/10/2012 Inactive amlodipine 10 mg tablet RxNorm: 925398 Tablet(s) PO 12/09/2011 No Stop Date Active TAKE 1 TABLET BY MOUTH DAILY ZOSTAVAX (PF) 19,400 unit Sub-Q Soln RxNorm: 3330693 SQ 2011 No Stop Date Active pt will call when she wants to picker and packer zostavac to bring to our office for administration metformin 500 mg tablet RxNorm: 738195 Tablet(s) PO BID 201111/17/2012 Inactive 1/2 q am and noon1 in sarah Trilipix 135 mg capsule,delayed release RxNorm: 866712 1 Capsule(s) PO daily 11/10/2011 12/16/2011 Inactive Synthroid 50 mcg tablet RxNorm: 317017 1 Tablet(s) PO daily 05/31/2012 Inactive Advair Diskus 250 mcg-50 mcg/dose for Inhalation RxNorm: 8226447 1 Puff(s) INH BID 11/10/2011 09/20/2012 Inactive ONE PUFF BY INHALATION TWICE DAILY . ProAir HFA 90 mcg/actuation Aerosol Inhaler RxNorm: 838804 HFA Aerosol Inhaler INH 08/31/2011 09/19/2012 Inactive USE 2 PUFFS BY MOUTH THREE TIMES DAILY Advair Diskus 250 mcg-50 mcg/dose for Inhalation RxNorm: 6018231 Disk with Device INH 2011 11/09/2011 Inactive ONE PUFF BY INHALATION TWICE DAILY . doxycycline hyclate 100 mg Tab RxNorm: 440263 1 Tablet(s) PO BID 07/14/2011 07/23/2011 Inactive Kenalog 40 mg/mL Susp for Injection RxNorm: 0527564 Milliliter(s) Inj 07/14/2011 07/14/2011 Inactive Atelvia 35 mg Tab RxNorm: 6135238 Tablet(s) PO 06/01/2011 03/07/2012 Inactive TAKE 1 TABLET BY MOUTH EVERY WEEK lovastatin 20 mg tablet RxNorm: 897410 Tablet(s) PO 05/21/2011 05/31/2012 Inactive TAKE 1 TABLET BY MOUTH EVERY NIGHT AT BEDTIME Synthroid 25 mcg tablet RxNorm: 074192 Tablet(s) PO 04/23/2011 11/09/2011 Inactive TAKE ONE TABLET BY MOUTH DAILY Ziac 10 mg-6.25 mg tablet RxNorm: 481339 2 Tablet(s) PO daily 02/10/2011 02/22/2012 Inactive ProAir HFA 90 mcg/actuation Aerosol Inhaler RxNorm: 207313 2 Puff(s) INH TID 01/07/2011 08/04/2011 Inactive and prn amlodipine 10 mg tablet RxNorm: 136428 1 Tablet(s) PO daily 02/201112/08/2011 Inactive metformin 500 mg tablet RxNorm: 375141 1 Tablet(s) PO BID 01/0710/24/2012 Inactive Advair Diskus 250 mcg-50 mcg/dose for Inhalation RxNorm: 3041850 1 Puff(s) INH BID 12/04/2010 12/04/2010 Inactive Ziac 10 mg-6.25 mg Tab RxNorm: 081631 1 Tablet(s) PO daily 10/201001/02/2011 Inactive aspirin 325 mg Tab RxNorm: 992307 1 Tablet(s) PO PRN pt uses for headaches No Start Date Active Calcium RxNorm: 1 PO daily 2000 units daily No Start Date Active Reclast 5 mg/100 mL IV RxNorm: 047846 Milliliter(s) IV pt receives this in november at No Start Date Active Cinnamon oral RxNorm: 630945 oral No Start Date Active Vitamin D2 50,000 unit capsule RxNorm: 387848 1 [place]aps[place] [address] units weekly x [address] 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 No Start Date Active bisoprolol 10 mg-hydrochlorothiazide 6.25 mg tablet RxNorm: 818845 1 Tablet(s) PO BID No Start Date Active Accu-Chek Active Test Strips RxNorm: Miscellaneous lety No Start Date Active Vitamin D3 4,000 unit capsule RxNorm: 8606302 1 Capsule(s) PO daily No Start Date Active losartan 100 mg tablet RxNorm: 701975 1 Tablet(s) PO daily No Start Date Active Fish Oil (with DHA-EPA) oral RxNorm: 3486562 oral No Start Date Active Diovan 160 mg Tab RxNorm: 512493 1 Tablet(s) PO daily No Start Date 03/04/2011 Inactive multivitamin Oral RxNorm: Oral No Start Date 03/01/2017 Inactive FreeStyle Lite Strips RxNorm: Miscellaneous BID No Start Date 03/20/2012 Inactive Ziac 10 mg-6.25 mg Tab RxNorm: 197948 1 Tablet(s) PO daily No Start Date 02/09/2011 Inactive ProAir HFA Inhl RxNorm : Inhalation No Start Date 06/22/2016 Inactive metformin 500 mg Tab RxNorm: 877485 Tablet(s) PO No Start Date 01/06/2011 Inactive 1/ 2 q am and 1 q sarah Synthroid 25 mcg Tab RxNorm: 264179 1 Tablet(s) PO daily No Start Date 04/22/2011 Inactive Vitamin D 2,000 unit Cap RxNorm: 1 Capsule(s) PO daily No Start Date 03/07/2012 Inactive ProAir HFA 90 mcg/Actuation Aerosol Inhaler RxNorm: 470551 INH BID No Start Date 01/06/2011 Inactive and prn Atelvia 35 mg Tab RxNorm: 6321245 1 Tablet(s) PO daily No Start Date 05/31/2011 Inactive amlodipine 5 mg Tab RxNorm: 730350 1 Tablet(s) PO daily No Start Date 03/04/2011 Inactive ZOSTAVAX (PF) 19,400 unit Sub-Q Soln RxNorm: 1891403 SQ No Start Date 11/23/2011 Inactive pt will call when she wants to picker and packer zostavac to bring to our office for administration lovastatin 20 mg Tab RxNorm: 981872 1 Tablet(s) PO daily No Start Date 05/20/2011 Inactive Medication Administered Medication Codes Instructions Start Date Status Pneumovax 23 25 mcg/0.5 mL injection RxNorm: 802333 1/2Milliliter 07/12/2013 No longer Active Kenalog 40 mg/mL Susp for Injection RxNorm: 1930127 Milliliter 07/14/2011 No longer Active Immunizations Vaccine Codes Date Status Tetanus, Diptheria, Pertussis CVX: 113 completed Tetanus/Diptheria CVX: 113 08/01/2014 completed Pneumococcal (Adult) CVX: 33 07/12/2013 completed Assessments Condition Codes Effective Dates Mixed hyperlipidemia ICD-10: E78.2 ICD-9: 272.2 03/02/2017 Hypothyroidism, unspecified ICD-10: E03.9 ICD-9: 244.9 03/02/2017 Essential (primary) hypertension ICD-10: I10 ICD-9: 401.1 03/02/2017 Type 2 diabetes mellitus with hyperglycemia ICD-10: E11.65 ICD-9: 250.02 03/02/2017 Encounter for general adult medical examination with abnormal findings ICD-10: Z00.01 ICD-9: V70.0 07/16/2016 Mixed hyperlipidemia ICD-10: E78.2 ICD-9: 272.4 06/22/2016 Cough ICD-10: R05 ICD-9: 786.2 06/04/2016 Encounter for general adult medical examination without abnormal findings ICD-10: Z00.00 ICD-9: V70.0 07/04/2015 Body mass index (BMI) 38.0-38.9, adult ICD-10: Z68.38 ICD-9: V85.38 06/07/2015 Primary hyperparathyroidism ICD-10: E21.0 ICD-9: 252.01 06/07/2015 Essential (primary) hypertension ICD-10: I10 ICD-9: 401.9 06/07/2015 Paronychia of finger of left hand ICD-9: 681.02 11/05/2014 Depression ICD-9: 311 11/05/2014 ESSENTIAL HYPERTENSION ICD-9: 401.9 07/17 DIABETES TYPE II ICD-9: 250.00 2014 Hypothyroidism ICD-9: 244.9 04/20/2014 Elevated lipids ICD-9: 272.4 04/20/2014 Diabetes mellitus type 2, uncontrolled ICD-9: 250.02 04/20/2014 Asthma ICD-9: 493.90 04/20/2014 ENCNTR LONG-RX USE NEC ICD-9: V58.69 Need for pneumococcal vaccine ICD-9: V03.82 07/12/2013 OBESITY ICD-9: 278.00 06/10/2012 Tick bite ICD-9: 919.4 07/14/2011 Allergic reaction ICD-9: 995.3 2011 Itching ICD-9: 698.9 07/14/2011 Osteoporosis ICD-9: 733.00 06/03/2011 Bone pain ICD-9: 733.90 06/03/2011 DIETARY SURVEIL/NURSE DISCHARGE ICD-9: V65.3 10/2011 Reason For Visit Reason For Visit Effective Dates Notes hypertension 03/02/2017 Annual Medicare Wellness Exam 07/16/2016 hypertension 06/22/2016 hypertension 06/04/2016 hypertension 05/25/2016 Annual Medicare Wellness Exam 07/04/2015 diabetes mellitus 06/07/2015 finger pain due to infection 11/05/2014 diabetes mellitus 07/17/2014 diabetes mellitus 04/20/2014 vaccination against pneumonia 07/12/2013 diabetes mellitus 10/10/2012 Weight follow up 06/10/2012 hypertension 04/26/2012 diabetes mellitus 03/08/2012 hypertension 11/10/2011 rash 07/14/2011 diabetes mellitus 07/08/2011 diabetes mellitus 06/03/2011 pt states that she has been doing the visualis diet hypertension 05/06/2011 blood pressure followup 03/04/2011 hypertension 02/11/2011 diabetes mellitus 01/07/2011 states ventolin inhaler doesn't work as well as proair. wants proair instead Results Observation Observation Code Item Item Code Result Date %Hba1C Vyd769 % HbA1c 76947-1 6.2 % 05/25/2016 %Hba1C Asy043 Gluc Ave 131 mg/dL 05/25/2016 Lipid Ord30 CHOL 174 mg/dL 05/25/2016 Lipid Ord30 HDL 40.0 mg/dl 05/25/2016 Lipid Ord30 TRIG 399 mg/dL 05/25/2016 Lipid Ord30 LDL 54 mg/dL 05/25/2016 Lipid Ord30 C/HDL 4.4 Ratio 05/25/2016 Cbc With Differential Ord2 WBC 5.46 K/ul 05/25/2016 Cbc With Differential Ord2 RBC 4.43 M/ul 05/25/2016 Cbc With Differential Ord2 HGB 12.9 g/dl 05/25/2016 Cbc With Differential Ord2 HCT 39.7 % 05/25/2016 Cbc With Differential Ord2 Neut% 63.7 % 05/25/2016 Cbc With Differential Ord2 MCV 89.6 fl 05/25/2016 Cbc With Differential Ord2 Lymph% 28.2 % 05/25/2016 Cbc With Differential Ord2 MCH 29.1 pg 05/25/2016 Cbc With Differential Ord2 Warren% 6.4 % 05/25/2016 Cbc With Differential Ord2 MCHC 32.5 pg 05/25/2016 Cbc With Differential Ord2 Eos% 1.5 % 05/25/2016 Cbc With Differential Ord2 PLT 346 K/ul 05/25/2016 Cbc With Differential Ord2 Baso% 0.2 % 05/25/2016 Cbc With Differential Ord2 RDW 13.5 % 05/25/2016 Cbc With Differential Ord2 Neut ABS# 3.48 K/ul 05/25/2016 Cbc With Differential Ord2 Lymph ABS# 1.54 K/ul 05/25/2016 Cbc With Differential Ord2 Warren ABS# 0.4 K/ul 05/25/2016 Cbc With Differential Ord2 Eos ABS# 0.1 K/ul 05/25/2016 Cbc With Differential Ord2 Baso ABS# 0.0 K/ul 05/25/2016 Tsh Ord6 hTSH II 1.65 uIU/mL 05/25/2016 Free T4 Wwo144 FREE T4 0.93 ng/dL 05/25/2016 Comp Metabolic Yjx703 NA 139 mEq/L 05/25/2016 Comp Metabolic Rzm745 K 4.2 mEq/L 05/25/2016 Comp Metabolic Eug170 CL 103 mEq/L 05/25/2016 Comp Metabolic Kmf710 CO2 27.0 mEq/L 05/25/2016 Comp Metabolic Sxi293 ANION GAP 13 05/25/2016 Comp Metabolic Xqq391 GLUCOSE 129 mg/dL 05/25/2016 Comp Metabolic Gkb316 Creat 0.6 mg/dL 05/25/2016 Comp Metabolic Qva424 eGFR 105 ml/min/1.73m2 05/25/2016 Comp Metabolic Tfz698 BUN 10 mg/dL 05/25/2016 Comp Metabolic Qrq677 B/C Ratio 16.7 Ratio 05/25/2016 Comp Metabolic Kis061 CALCIUM 9.3 mg/dL 05/25/2016 Comp Metabolic Jpt157 ALK PHOS 66 U/L 05/25/2016 Comp Metabolic Tvg656 AST(SGOT) 12 U/L 05/25/2016 Comp Metabolic Qba250 ALT(SGPT) 17 U/L 05/25/2016 Comp Metabolic Pph501 BILI T 0.5 mg/dL 05/25/2016 Comp Metabolic Xka514 ALBUMIN 4.3 g/dL 05/25/2016 Comp Metabolic Mwe559 TPRO 6.9 g/dL 05/25/2016 Comp Metabolic Pzp016 GLOB 2.6 g/dL 05/25/2016 Comp Metabolic Cax528 A/G Ratio 1.6 Ratio 05/25/2016 Comp Metabolic Suw310 Osmo 278 mOsmo 05/25/2016 Metabolic Ord15 NA 141 mEq/L 01/08/2016 Metabolic Ord15 K 4.1 mEq/L 01/08/2016 Metabolic Ord15 CL 105 mEq/L 01/08/2016 Metabolic Ord15 CO2 26.0 mEq/L 01/08/2016 Metabolic Ord15 GLUCOSE 96 mg/dL 01/08/2016 Metabolic Ord15 BUN 11 mg/dL 01/08/2016 Metabolic Ord15 Creat 0.6 mg/dL 01/08/2016 Metabolic Ord15 B/C Ratio 17.2 Ratio 01/08/2016 Metabolic Ord15 eGFR 98 ml/min/1.73m2 01/08/2016 Metabolic Ord15 Osmo 281 mOsmo 01/08/2016 Metabolic Ord15 ANION GAP 14 01/08/2016 Metabolic Ord15 CALCIUM 9.3 mg/dL 01/08/2016 Tsh Ord6 hTSH II 1.22 uIU/mL 01/08/2016 Vitamin D 25 Oh [id number] VITAMIN D, 25 HYDROXY 51.91 ng/mL %Hba1C Pyk364 % HbA1c 26584-5 6.2 % 06/07/2015 %Hba1C Ivp766 Gluc Ave 131 mg/dL 06/07/2015 Tsh Ord6 hTSH II 2.13 uIU/mL 06/07/2015 Free T4 Lwa194 FREE T4 0.91 ng/dL 06/07/2015 Comp Metabolic Lku457 NA 139 mEq/L 06/07/2015 Comp Metabolic Srv657 K 4.1 mEq/L 06/07/2015 Comp Metabolic Cbh032 CL 102 mEq/L 06/07/2015 Comp Metabolic Xxk562 CO2 28.0 mEq/L 06/07/2015 Comp Metabolic Ckp876 ANION GAP 13 06/07/2015 Comp Metabolic Fyt647 GLUCOSE 117 mg/dL 06/07/2015 Comp Metabolic Qkg595 Creat 0.6 mg/dL 06/07/2015 Comp Metabolic Okz171 eGFR 114 ml/min/1.73m2 06/07/2015 Comp Metabolic Vvk491 BUN 14 mg/dL 06/07/2015 Comp Metabolic Knu253 B/C Ratio 25.0 Ratio 06/07/2015 Comp Metabolic Hem046 CALCIUM 9.1 mg/dL 06/07/2015 Comp Metabolic Bbs280 ALK PHOS 59 U/L 06/07/2015 Comp Metabolic Abv675 AST(SGOT) 12 U/L 06/07/2015 Comp Metabolic Jvm143 ALT(SGPT) 12 U/L 06/07/2015 Comp Metabolic Orn451 BILI T 0.6 mg/dL 06/07/2015 Comp Metabolic Vab247 ALBUMIN 4.3 g/dL 06/07/2015 Comp Metabolic Gch355 TPRO 6.9 g/dL 06/07/2015 Comp Metabolic Ufh498 GLOB 2.6 g/dL 06/07/2015 Comp Metabolic Yti291 A/G Ratio 1.6 Ratio 06/07/2015 Comp Metabolic Kmy264 Osmo 279 mOsmo 06/07/2015 Cbc With Differential Ord2 WBC 5.92 K/ul 06/07/2015 Cbc With Differential Ord2 RBC 4.36 M/ul 06/07/2015 Cbc With Differential Ord2 HGB 12.6 g/dl 06/07/2015 Cbc With Differential Ord2 HCT 38.9 % 06/07/2015 Cbc With Differential Ord2 Neut% 64.4 % 06/07/2015 Cbc With Differential Ord2 Lymph% 27.5 % 06/07/2015 Cbc With Differential Ord2 MCV 89.2 fl 06/07/2015 Cbc With Differential Ord2 Warren% 6.6 % 06/07/2015 Cbc With Differential Ord2 MCH 28.9 pg 06/07/2015 Cbc With Differential Ord2 Eos% 1.2 % 06/07/2015 Cbc With Differential Ord2 MCHC 32.4 pg 06/07/2015 Cbc With Differential Ord2 PLT 342 K/ul 06/07/2015 Cbc With Differential Ord2 Baso% 0.3 % 06/07/2015 Cbc With Differential Ord2 Neut ABS# 3.81 K/ul 06/07/2015 Cbc With Differential Ord2 RDW 13.6 % 06/07/2015 Cbc With Differential Ord2 Lymph ABS# 1.63 K/ul 06/07/2015 Cbc With Differential Ord2 Warren ABS# 0.4 K/ul 06/07/2015 Cbc With Differential Ord2 Eos ABS# 0.1 K/ul 06/07/2015 Cbc With Differential Ord2 Baso ABS# 0.0 K/ul 06/07/2015 Cbc With Differential Ord2 New Analyzer Notice Please note new ref ranges starting 04-10-2015 due to implemntation of new five part differential hematolgy analyzer. 06/07/2015 Lipid Ord30 CHOL 190 mg/dL 06/07/2015 Lipid Ord30 HDL 41.0 mg/dl 06/07/2015 Lipid Ord30 TRIG 201 mg/dL 06/07/2015 Lipid Ord30 LDL 109 mg/dL 06/07/2015 Lipid Ord30 C/HDL 4.6 Ratio 06/07/2015 TSH 1768913 TSH 3.116 uIU/ML 07/12/2013 CHEM 14 1649956 AST 15 U/L 07/12/2013 CHEM 14 5483809 ALT 17 IU/L 07/12/2013 CHEM 14 5960330 BUN 12 MG/DL 07/12/2013 CHEM 14 2504727 ALBUMIN 4.5 GM/DL 07/12/2013 CHEM 14 4476253 CHLORIDE 104 MMOL/L 07/12/2013 CHEM 14 8817867 BILI TOT 0.7 MG/DL 07/12/2013 CHEM 14 7421301 ALK PHOS 64 U/L 07/12/2013 CHEM 14 2647164 SODIUM 140 MMOL/L 07/12/2013 CHEM 14 5187702 CREATININE 0.66 MG/DL 07/12/2013 CHEM 14 3337422 CALCIUM 9.4 MG/DL 07/12/2013 CHEM 14 6660695 POTASSIUM 4.0 MMOL/L 07/12/2013 CHEM 14 9721188 PROT TOT 7.0 GM/DL 07/12/2013 CHEM 14 8633532 GLUCOSE 134 MG/DL 07/12/2013 CHEM 14 9283303 BICARB 27 MMOL/L 07/12/2013 CHEM 14 7855958 ANION GAP 9 MEQ/L 07/12/2013 LIPID GRP HDL TEST 41 MG/DL 07/12/2013 LIPID GRP TRIG 284 MG/DL 07/12/2013 LIPID GRP TEST LDL 55 MG/DL 07/12/2013 LIPID GRP CHOL 153 MG/DL 07/12/2013 LIPID GRP RCHOL/HDL 3.73 RATIO 07/12/2013 A1C HPLC [id number] A1C HPLC 15730-0 6.6 % 07/12/2013 CBC [id number] WBC 7.2 10e9/L 07/12/2013 CBC [id number] RBC 4.47 10e12/L 07/12/2013 CBC [id number] HGB 12.9 g/dL 07/12/2013 CBC [id number] HCT DET 39.6 % 07/12/2013 CBC 8203376 MCV 88.6 fL 07/12/2013 CBC [id number] MCH 28.9 pg 07/12/2013 CBC [id number] MCHC 32.6 g/dL 07/12/2013 CBC 8557658 PLT 332 10e9/L 07/12/2013 CBC 2547704 MPV 10.6 fL 07/12/2013 CBC 7789929 SATISH % 68.1 % 07/12/2013 CBC 3153798 LY % 22.3 % 07/12/2013 CBC 3750698 MON % 7.5 % 07/12/2013 CBC 2872573 EOS % 2.0 % 07/12/2013 CBC 3251921 BASO % 0.1 % 07/12/2013 CBC 4748944 RDW 13.5 % 07/12/2013 CBC 6890419 ABS SATISH 4.90 10e9/L 07/12/2013 CBC 8642873 ABS LYMPH 1.61 10e9/L 07/12/2013 CBC 4899117 ABS MONO 0.54 10e9/L 07/12/2013 CBC 4275149 ABS EOS 0.14 10e9/L 07/12/2013 CBC [id number] ABS BASO 0.01 10e9/L 07/12/2013 CBC 4770309 RDW-SD 42.5 fL 07/12/2013 FREE T4 2790937 FREE T4 1.16 NG/DL 07/12/2013 GFR CALC 4132441 GFR AA >60 ML/MIN 07/12/2013 GFR CALC 5917401 GFR NON-AA >60 ML/MIN 07/12/2013 INT IR PTH 0686331 PTH TEST 11 PG/ML 07/18/2012 CA PTH 3556306 CA PTH 9.8 MG/DL 07/18/2012 TSH 1973281 TSH 3.804 uIU/ML 07/15/2012 LIPID GRP HDL TEST 40 MG/DL 04/22/2012 LIPID GRP TRIG 247 MG/DL 04/22/2012 LIPID GRP TEST LDL 59 MG/DL 04/22/2012 LIPID GRP CHOL 148 MG/DL 04/22/2012 LIPID GRP RCHOL/HDL 3.70 RATIO 04/22/2012 FREE T4 3857560 FREE T4 1.27 NG/DL 04/22/2012 CHEM 14 6958975 AST 11 U/L 04/22/2012 CHEM 14 9803861 ALT 16 IU/L 04/22/2012 CHEM 14 9509487 BUN 14 MG/DL 04/22/2012 CHEM 14 0385117 ALBUMIN 4.7 GM/DL 04/22/2012 CHEM 14 6430655 CHLORIDE 103 MMOL/L 04/22/2012 CHEM 14 4714769 BILI TOT 0.6 MG/DL 04/22/2012 CHEM 14 2171696 ALK PHOS 69 U/L 04/22/2012 CHEM 14 5988103 SODIUM 140 MMOL/L 04/22/2012 CHEM 14 5130439 CREATININE 0.70 MG/DL 04/22/2012 CHEM 14 1934916 CALCIUM 9.6 MG/DL 04/22/2012 CHEM 14 9221146 POTASSIUM 4.1 MMOL/L 04/22/2012 CHEM 14 0979605 PROT TOT 7.0 GM/DL 04/22/2012 CHEM 14 3407120 GLUCOSE 120 MG/DL 04/22/2012 CHEM 14 4479484 BICARB 29 MMOL/L 04/22/2012 CHEM 14 8494016 ANION GAP 8 MEQ/L 04/22/2012 GFR CALC 9635142 GFR AA >60 ML/MIN 04/22/2012 GFR CALC 8560617 GFR NON-AA >60 ML/MIN 04/22/2012 A1C HPLC [id number] A1C HPLC 23499-7 5.6 % 04/22/2012 CBC 7196623 WBC 6.3 10e9/L 04/22/2012 CBC 1242145 RBC 4.45 10e12/L 04/22/2012 CBC 8133569 HGB 12.9 g/dL 04/22/2012 CBC 7700527 HCT DET 39.2 % 04/22/2012 CBC 5143472 MCV 88.1 fL 04/22/2012 CBC 2092768 MCH 29.0 pg 04/22/2012 CBC 2856883 MCHC 32.9 g/dL 04/22/2012 CBC 5083175 PLT 341 10e9/L 04/22/2012 CBC 3945496 MPV 10.2 fL 04/22/2012 CBC 2611324 SATISH % 65.7 % 04/22/2012 CBC [id number] LY % 25.0 % 04/22/2012 CBC 9671933 MON % 7.4 % 04/22/2012 CBC 1939465 EOS % 1.6 % 04/22/2012 CBC 3836623 BASO % 0.3 % 04/22/2012 CBC 1809960 RDW 13.5 % 04/22/2012 CBC [id number] ABS SATISH 4.14 10e9/L 04/22/2012 CBC 5183754 ABS LYMPH 1.58 10e9/L 04/22/2012 CBC 2711115 ABS MONO 0.47 10e9/L 04/22/2012 CBC 1456160 ABS EOS 0.10 10e9/L 04/22/2012 CBC 6310840 ABS BASO 0.02 10e9/L 04/22/2012 CBC 2641853 RDW-SD 42.3 fL 04/22/2012 TSH 8801016 TSH 3.502 uIU/ML 04/22/2012 LIVER PNL 9426857 AST 14 U/L 11/24/2011 LIVER PNL 2742755 ALK PHOS 66 U/L 11/24/2011 LIVER PNL 6788125 BILI TOT 0.4 MG/DL 11/24/2011 LIVER PNL 0954795 ALT 18 IU/L 11/24/2011 LIVER PNL 3510218 BILI DIR 0.1 MG/DL 11/24/2011 LIVER PNL 7774822 ALBUMIN 4.5 GM/DL 11/24/2011 LIVER PNL 3857525 PROT TOT 6.8 GM/DL 11/24/2011 TSH 9723410 TSH 4.385 uIU/ML 11/03/2011 CHEM 14 9317604 AST 15 U/L 11/03/2011 CHEM 14 1568835 ALT 18 IU/L 11/03/2011 CHEM 14 9808332 BUN 15 MG/DL 11/03/2011 CHEM 14 8858774 ALBUMIN 4.7 GM/DL 11/03/2011 CHEM 14 5260393 CHLORIDE 104 MMOL/L 11/03/2011 CHEM 14 0692747 BILI TOT 0.8 MG/DL 11/03/2011 CHEM 14 4519081 ALK PHOS 74 U/L 11/03/2011 CHEM 14 5868447 SODIUM 141 MMOL/L 11/03/2011 CHEM 14 1209807 CREATININE 0.68 MG/DL 11/03/2011 CHEM 14 5058179 CALCIUM 9.6 MG/DL 11/03/2011 CHEM 14 0168447 POTASSIUM 4.2 MMOL/L 11/03/2011 CHEM 14 8807470 PROT TOT 7.1 GM/DL 11/03/2011 CHEM 14 5522319 GLUCOSE 127 MG/DL 11/03/2011 CHEM 14 4201925 BICARB 27 MMOL/L 11/03/2011 CHEM 14 1633437 ANION GAP 10 MEQ/L 11/03/2011 LIPID GRP HDL TEST 38 MG/DL 11/03/2011 LIPID GRP TRIG 291 MG/DL 11/03/2011 LIPID GRP TEST LDL 38 MG/DL 11/03/2011 LIPID GRP CHOL 134 MG/DL 11/03/2011 LIPID GRP RCHOL/HDL 3.53 RATIO 11/03/2011 GFR CALC 1514201 GFR AA >60 ML/MIN 11/03/2011 GFR CALC 1885521 GFR NON-AA >60 ML/MIN 11/03/2011 A1C HPLC [id number] A1C HPLC 71588-5 6.3 % 11/03/2011 CBC [id number] WBC 7.3 10e9/L 11/03/2011 CBC 5184009 RBC 4.49 10e12/L 11/03/2011 CBC [id number] HGB 12.9 g/dL 11/03/2011 CBC [id number] HCT DET 39.6 % 11/03/2011 CBC 9528787 MCV 88.2 fL 11/03/2011 CBC 9301523 MCH 28.7 pg 11/03/2011 CBC 1351500 MCHC 32.6 g/dL 11/03/2011 CBC 7316789 PLT 322 10e9/L 11/03/2011 CBC 3870942 MPV 9.9 fL 11/03/2011 CBC 3759391 SATISH % 71.0 % 11/03/2011 CBC [id number] LY % 21.0 % 11/03/2011 CBC [id number] MON % 6.3 % 11/03/2011 CBC 6954735 EOS % 1.4 % 11/03/2011 CBC [id number] BASO % 0.3 % 11/03/2011 CBC 7627987 RDW 13.6 % 11/03/2011 CBC [id number] ABS SATISH 5.18 10e9/L 11/03/2011 CBC [id number] ABS LYMPH 1.53 10e9/L 11/03/2011 CBC [id number] ABS MONO 0.46 10e9/L 11/03/2011 CBC 2088352 ABS EOS 0.10 10e9/L 11/03/2011 CBC 1557465 ABS BASO 0.02 10e9/L 11/03/2011 CBC [id number] RDW-SD 42.9 fL 11/03/2011 Review of Systems System Result Effective Dates Constitutional No recent illness 2016 Constitutional No chills 03/02/2017 Constitutional No diaphoresis 03/02/2017 Constitutional No fever 03/02/2017 Eyes No blindness 03/02/2017 Ears/Nose/Throat/Neck No nasal allergies 03/02/2017 Ears/Nose/Throat/Neck No nasal discharge 03/02/2017 Cardiovascular No chest pain/pressure 07/2016 Respiratory No cough 03/02/2017 Respiratory No dyspnea 03/02/2017 Gastrointestinal No abdominal pain 2016 Gastrointestinal No constipation 2016 Gastrointestinal No diarrhea 03/02/2017 Neurologic No alteration of consciousness 03/02/2017 Neurologic No mental status change 2016 Constitutional No anorexia 03/02/2017 Constitutional No night sweats 2016 Constitutional fatigue 03/02/2017 Constitutional insomnia 03/02/2017 Constitutional No malaise 03/02/2017 Ears/Nose/Throat/Neck No dizziness 2016 Ears/Nose/Throat/Neck No headache 2016 Genitourinary/Nephrology No dysuria 03/02 Musculoskeletal No joint complaint 2016 Dermatologic No rash 03/02/2017 Dermatologic No sores 03/02/2017 Constitutional No recent illness 2016 Constitutional No chills 07/16/2016 Constitutional No diaphoresis 07/16/2016 Constitutional No fever 07/16/2016 Eyes No eye erythema 07/16/2016 Ears/Nose/Throat/Neck No nasal allergies 07/16/2016 Ears/Nose/Throat/Neck No nasal discharge 07/16/2016 Cardiovascular No chest pain/pressure Respiratory No cough 07/16/2016 Gastrointestinal No abdominal pain 2016 Gastrointestinal No constipation 2016 Gastrointestinal No diarrhea 07/16/2016 Neurologic No alteration of consciousness 07/16/2016 Neurologic No mental status change 2016 Respiratory No dyspnea 07/16/2016 Constitutional No recent illness 2016 Constitutional No night sweats 2016 Constitutional No chills 06/22/2016 Constitutional No diaphoresis 06/22/2016 Constitutional fatigue 06/22/2016 Constitutional No fever 06/22/2016 Constitutional No insomnia 06/22/2016 Constitutional No malaise 06/22/2016 Constitutional weight gain 06/22/2016 Eyes No eye discharge 06/22/2016 Eyes No eye erythema 06/22/2016 Ears/Nose/Throat/Neck dizziness 2016 Ears/Nose/Throat/Neck No nasal discharge 06/22/2016 Cardiovascular No chest pain/pressure Cardiovascular No dyspnea 06/22/2016 Respiratory No cough 06/22/2016 Gastrointestinal No abdominal pain 2016 Genitourinary/Nephrology No dysuria 06/22 Musculoskeletal joint complaint 2016 Dermatologic No rash 06/22/2016 Neurologic No alteration of consciousness 06/22/2016 Psychiatric No anxiety 06/22/2016 Endocrine No dry or coarse skin 2016 Endocrine diabetes mellitus type 2 2016 Constitutional No night sweats 2016 Constitutional No recent illness 2016 Constitutional No chills 06/04/2016 Constitutional No diaphoresis 06/04/2016 Constitutional No fatigue 06/04/2016 Constitutional No fever 06/04/2016 Constitutional No insomnia 06/04/2016 Constitutional No malaise 06/04/2016 Eyes No blindness 06/04/2016 Eyes No photophobia 06/04/2016 Ears/Nose/Throat/Neck No dizziness 2016 Ears/Nose/Throat/Neck No dysphagia 2016 Ears/Nose/Throat/Neck No headache 2016 Ears/Nose/Throat/Neck No nasal allergies 06/04/2016 Ears/Nose/Throat/Neck No nasal discharge 06/04/2016 Ears/Nose/Throat/Neck No otalgia 2016 Ears/Nose/Throat/Neck No sinus congestion 06/04/2016 Ears/Nose/Throat/Neck No sore throat 11/2016 Cardiovascular No chest pain/pressure 11/2016 Cardiovascular No dyspnea 06/04/2016 Cardiovascular No edema 06/04/2016 Respiratory asthma 06/04/2016 Respiratory No chest congestion 2016 Respiratory cough 06/04/2016 Gastrointestinal No abdominal pain 2016 Gastrointestinal No constipation 2016 Gastrointestinal No diarrhea 06/04/2016 Gastrointestinal No gastroesophageal reflux 06/04/2016 Gastrointestinal No nausea 06/04/2016 Gastrointestinal No vomiting 06/04/2016 Genitourinary/Nephrology No dysuria 06/04 Genitourinary/Nephrology No flank pain Musculoskeletal No joint complaint 2016 Dermatologic No rash 06/04/2016 Dermatologic No sores 06/04/2016 Neurologic No alteration of consciousness 06/04/2016 Neurologic No mental status change 2016 Constitutional No recent illness 2016 Constitutional No chills 05/25/2016 Constitutional No diaphoresis 05/25/2016 Constitutional No fatigue 05/25/2016 Constitutional No fever 05/25/2016 Ears/Nose/Throat/Neck dizziness 2016 Ears/Nose/Throat/Neck No nasal discharge 05/25/2016 Cardiovascular No chest pain/pressure Cardiovascular No dyspnea 05/25/2016 Respiratory No cough 05/25/2016 Gastrointestinal No abdominal pain 2016 Genitourinary/Nephrology No dysuria 05/25 Neurologic No alteration of consciousness 05/25/2016 Psychiatric No anxiety 05/25/2016 Neurologic headache 05/25/2016 Ears/Nose/Throat/Neck No dizziness 2015 Ears/Nose/Throat/Neck No headache 2015 Ears/Nose/Throat/Neck No dysphagia 2015 Ears/Nose/Throat/Neck No nasal allergies 07/04/2015 Ears/Nose/Throat/Neck No nasal discharge 07/04/2015 Cardiovascular No chest pain/pressure 09/2015 Cardiovascular No dyspnea 07/04/2015 Cardiovascular No edema 07/04/2015 Respiratory No chest congestion 2015 Respiratory No cough 07/04/2015 Gastrointestinal No constipation 2015 Gastrointestinal No diarrhea 07/04/2015 Genitourinary/Nephrology No dysuria 07/03 Genitourinary/Nephrology No flank pain Neurologic No alteration of consciousness 07/04/2015 Neurologic No mental status change 2015 Constitutional No recent illness 2015 Constitutional No night sweats 2015 Constitutional No chills 07/04/2015 Constitutional No diaphoresis 07/04/2015 Constitutional No fatigue 07/04/2015 Constitutional No fever 07/04/2015 Constitutional No insomnia 07/04/2015 Constitutional No malaise 07/04/2015 Eyes No eye erythema 07/04/2015 Eyes No photophobia 07/04/2015 Ears/Nose/Throat/Neck No sinus congestion 07/04/2015 Ears/Nose/Throat/Neck No otalgia 2015 Ears/Nose/Throat/Neck No sore throat 09/2015 Respiratory asthma 07/04/2015 Gastrointestinal No vomiting 07/04/2015 Gastrointestinal No nausea 07/04/2015 Gastrointestinal No gastroesophageal reflux 07/04/2015 Gastrointestinal No abdominal pain 2015 Musculoskeletal No joint complaint 2015 Dermatologic No sores 07/04/2015 Dermatologic No rash 07/04/2015 Constitutional No recent illness 2015 Constitutional No anorexia 06/07/2015 Constitutional No night sweats 2015 Constitutional No chills 06/07/2015 Constitutional No diaphoresis 06/07/2015 Constitutional No fatigue 06/07/2015 Constitutional No fever 06/07/2015 Constitutional No insomnia 06/07/2015 Constitutional No malaise 06/07/2015 Constitutional No weight loss 06/07/2015 Constitutional weight gain 06/07/2015 Eyes No eye erythema 06/07/2015 Eyes No eye discharge 06/07/2015 Ears/Nose/Throat/Neck dizziness 2015 Ears/Nose/Throat/Neck No nasal discharge 06/07/2015 Cardiovascular No chest pain/pressure 01/2016 Cardiovascular No dyspnea 06/07/2015 Respiratory No cough 06/07/2015 Gastrointestinal No abdominal pain 2015 Genitourinary/Nephrology No dysuria 06/06 Musculoskeletal joint complaint 2015 Dermatologic No rash 06/07/2015 Neurologic No alteration of consciousness 06/07/2015 Psychiatric No anxiety 06/07/2015 Endocrine No dry or coarse skin 2015 Hematologic/Lymphatic No abnormal bleeding and bruising 06/07/2015 Constitutional recent illness 11/05/2014 Psychiatric depression 11/05/2014 Constitutional No anorexia 11/05/2014 Constitutional No night sweats 2014 Constitutional No chills 11/05/2014 Constitutional No diaphoresis 11/05/2014 Constitutional No fatigue 11/05/2014 Constitutional No fever 11/05/2014 Constitutional No insomnia 11/05/2014 Constitutional No weight loss 11/05/2014 Constitutional No weight gain 11/05/2014 Constitutional No malaise 11/05/2014 Constitutional No recent illness 2014 Constitutional No chills 07/17/2014 Constitutional No fatigue 07/17/2014 Constitutional No fever 07/17/2014 Eyes No vision change 07/17/2014 Ears/Nose/Throat/Neck No dizziness 2014 Ears/Nose/Throat/Neck No nasal allergies 07/17/2014 Ears/Nose/Throat/Neck No nasal discharge 07/17/2014 Cardiovascular No chest pain/pressure Cardiovascular No dyspnea 07/17/2014 Cardiovascular No edema 07/17/2014 Cardiovascular No exercise intolerance Cardiovascular No fatigue 07/17/2014 Cardiovascular No near-syncope/dizziness 07/17/2014 Respiratory No productive sputum 2014 Respiratory No chest congestion 2014 Respiratory No cough 07/17/2014 Respiratory No dyspnea 07/17/2014 Gastrointestinal No constipation 2014 Gastrointestinal No diarrhea 07/17/2014 Gastrointestinal No nausea 07/17/2014 Gastrointestinal No vomiting 07/17/2014 Genitourinary/Nephrology No dysuria 07/17 Musculoskeletal No stiffness 07/17/2014 Musculoskeletal No swelling 07/17/2014 Musculoskeletal No muscle weakness 2014 Musculoskeletal No myalgias 07/17/2014 Dermatologic No rash 07/17/2014 Neurologic No dizziness 07/17/2014 Neurologic No headache 07/17/2014 Neurologic No neck pain 07/17/2014 Neurologic No syncope 07/17/2014 Psychiatric No anxiety 07/17/2014 Constitutional No recent illness 2014 Constitutional No chills 04/20/2014 Constitutional No fatigue 04/20/2014 Constitutional No fever 04/20/2014 Eyes No vision change 04/20/2014 Ears/Nose/Throat/Neck No dizziness 2014 Ears/Nose/Throat/Neck No nasal allergies 04/20/2014 Ears/Nose/Throat/Neck No nasal discharge 04/20/2014 Respiratory No productive sputum 2014 Respiratory No chest congestion 2014 Respiratory No cough 04/20/2014 Respiratory No dyspnea 04/20/2014 Gastrointestinal No constipation 2014 Gastrointestinal No diarrhea 04/20/2014 Gastrointestinal No nausea 04/20/2014 Gastrointestinal No vomiting 04/20/2014 Genitourinary/Nephrology No dysuria 04/20 Dermatologic No rash 04/20/2014 Psychiatric No anxiety 04/20/2014 Neurologic No dizziness 04/20/2014 Neurologic No headache 04/20/2014 Neurologic No neck pain 04/20/2014 Neurologic No syncope 04/20/2014 Musculoskeletal No stiffness 04/20/2014 Musculoskeletal No swelling 04/20/2014 Musculoskeletal No muscle weakness 2014 Musculoskeletal No myalgias 04/20/2014 Cardiovascular No chest pain/pressure Cardiovascular No dyspnea 04/20/2014 Cardiovascular No edema 04/20/2014 Cardiovascular No exercise intolerance Cardiovascular No fatigue 04/20/2014 Cardiovascular No near-syncope/dizziness 04/20/2014 Constitutional No recent illness 2012 Constitutional No chills 10/10/2012 Constitutional No fatigue 10/10/2012 Constitutional No fever 10/10/2012 Eyes No vision change 10/10/2012 Ears/Nose/Throat/Neck No dizziness 2012 Ears/Nose/Throat/Neck No nasal allergies 10/10/2012 Ears/Nose/Throat/Neck No nasal discharge 10/10/2012 Respiratory No productive sputum 2012 Respiratory No chest congestion 2012 Respiratory No cough 10/10/2012 Respiratory No dyspnea 10/10/2012 Gastrointestinal No constipation 2012 Gastrointestinal No diarrhea 10/10/2012 Gastrointestinal No nausea 10/10/2012 Gastrointestinal No vomiting 10/10/2012 Genitourinary/Nephrology No dysuria 10/10 Dermatologic No rash 10/10/2012 Psychiatric No anxiety 10/10/2012 Constitutional No recent illness 2012 Constitutional No chills 06/10/2012 Constitutional No fatigue 06/10/2012 Constitutional No fever 06/10/2012 Eyes No vision change 06/10/2012 Ears/Nose/Throat/Neck No dizziness 2012 Ears/Nose/Throat/Neck No nasal allergies 06/10/2012 Ears/Nose/Throat/Neck No nasal discharge 06/10/2012 Respiratory No productive sputum 2012 Respiratory No chest congestion 2012 Respiratory No cough 06/10/2012 Respiratory No dyspnea 06/10/2012 Gastrointestinal No constipation 2012 Gastrointestinal No diarrhea 06/10/2012 Gastrointestinal No nausea 06/10/2012 Gastrointestinal No vomiting 06/10/2012 Genitourinary/Nephrology No dysuria 06/10 Dermatologic No rash 06/10/2012 Psychiatric No anxiety 06/10/2012 Constitutional No recent illness 2012 Constitutional No chills 04/26/2012 Constitutional No fatigue 04/26/2012 Constitutional No fever 04/26/2012 Eyes No vision change 04/26/2012 Ears/Nose/Throat/Neck No dizziness 2012 Ears/Nose/Throat/Neck No nasal allergies 04/26/2012 Ears/Nose/Throat/Neck No nasal discharge 04/26/2012 Respiratory No productive sputum 2012 Respiratory No chest congestion 2012 Respiratory No cough 04/26/2012 Respiratory No dyspnea 04/26/2012 Gastrointestinal No constipation 2012 Gastrointestinal No diarrhea 04/26/2012 Gastrointestinal No nausea 04/26/2012 Gastrointestinal No vomiting 04/26/2012 Genitourinary/Nephrology No dysuria 04/26 Musculoskeletal bone pain 04/26/2012 Musculoskeletal osteoporosis 04/26/2012 Dermatologic No rash 04/26/2012 Psychiatric No anxiety 04/26/2012 Constitutional No recent illness 2011 Constitutional No chills 03/08/2012 Constitutional No fatigue 03/08/2012 Constitutional No fever 03/08/2012 Eyes No vision change 03/08/2012 Ears/Nose/Throat/Neck No dizziness 2011 Ears/Nose/Throat/Neck No nasal allergies 03/08/2012 Ears/Nose/Throat/Neck No nasal discharge 03/08/2012 Respiratory No productive sputum 2011 Respiratory No chest congestion 2011 Respiratory No cough 03/08/2012 Respiratory No dyspnea 03/08/2012 Gastrointestinal No constipation 2011 Gastrointestinal No diarrhea 03/08/2012 Gastrointestinal No nausea 03/08/2012 Gastrointestinal No vomiting 03/08/2012 Genitourinary/Nephrology No dysuria 03/08 Musculoskeletal bone pain 03/08/2012 Musculoskeletal osteoporosis 03/08/2012 Dermatologic No rash 03/08/2012 Psychiatric No anxiety 03/08/2012 Constitutional No recent illness 2011 Constitutional No chills 11/10/2011 Constitutional No fatigue 11/10/2011 Constitutional No fever 11/10/2011 Eyes No vision change 11/10/2011 Ears/Nose/Throat/Neck No dizziness 2011 Ears/Nose/Throat/Neck No nasal allergies 11/10/2011 Ears/Nose/Throat/Neck No nasal discharge 11/10/2011 Cardiovascular No chest pain/pressure Respiratory No productive sputum 2011 Respiratory No chest congestion 2011 Respiratory No cough 11/10/2011 Respiratory No dyspnea 11/10/2011 Gastrointestinal No constipation 2011 Gastrointestinal No diarrhea 11/10/2011 Gastrointestinal No nausea 11/10/2011 Gastrointestinal No vomiting 11/10/2011 Genitourinary/Nephrology No dysuria 11/09 Musculoskeletal bone pain 11/10/2011 Musculoskeletal osteoporosis 11/10/2011 Dermatologic No rash 11/10/2011 Psychiatric No anxiety 11/10/2011 Constitutional No recent illness 2011 Constitutional No chills 07/14/2011 Constitutional No fever 07/14/2011 Cardiovascular No chest pain/pressure Cardiovascular No dyspnea 07/14/2011 Respiratory No cough 07/14/2011 Respiratory No chest tightness 2011 Gastrointestinal No abdominal pain 2011 Neurologic No dizziness 07/14/2011 Allergy/Immunology No anaphylactoid reaction 07/14/2011 Allergy/Immunology No urticaria 2011 Eyes No vision change 07/08/2011 Respiratory No dyspnea 07/08/2011 Constitutional No chills 07/08/2011 Constitutional No fever 07/08/2011 Ears/Nose/Throat/Neck No dizziness 2011 Cardiovascular No chest pain/pressure 01/2012 Gastrointestinal No constipation 2011 Gastrointestinal No diarrhea 07/08/2011 Gastrointestinal No nausea 07/08/2011 Gastrointestinal No vomiting 07/08/2011 Constitutional No recent illness 2011 Constitutional No fatigue 07/08/2011 Ears/Nose/Throat/Neck No nasal allergies 07/08/2011 Ears/Nose/Throat/Neck No nasal discharge 07/08/2011 Respiratory No productive sputum 2011 Respiratory No chest congestion 2011 Respiratory No cough 07/08/2011 Genitourinary/Nephrology No dysuria 07/07 Musculoskeletal bone pain 07/08/2011 Musculoskeletal osteoporosis 07/08/2011 Dermatologic No rash 07/08/2011 Psychiatric No anxiety 07/08/2011 Constitutional No recent illness 2011 Constitutional No chills 06/03/2011 Constitutional No fatigue 06/03/2011 Constitutional No fever 06/03/2011 Ears/Nose/Throat/Neck No dizziness 2011 Ears/Nose/Throat/Neck No nasal allergies 06/03/2011 Ears/Nose/Throat/Neck No nasal discharge 06/03/2011 Cardiovascular No chest pain/pressure 09/2011 Respiratory No productive sputum 2011 Respiratory No chest congestion 2011 Respiratory No cough 06/03/2011 Gastrointestinal No constipation 2011 Gastrointestinal No diarrhea 06/03/2011 Gastrointestinal No nausea 06/03/2011 Gastrointestinal No vomiting 06/03/2011 Genitourinary/Nephrology No dysuria 06/02 Dermatologic No rash 06/03/2011 Psychiatric No anxiety 06/03/2011 Musculoskeletal bone pain 06/03/2011 Musculoskeletal osteoporosis 06/03/2011 Constitutional No recent illness 2011 Constitutional No chills 05/06/2011 Constitutional No fatigue 05/06/2011 Constitutional No fever 05/06/2011 Ears/Nose/Throat/Neck No dizziness 2011 Ears/Nose/Throat/Neck No nasal allergies 05/06/2011 Ears/Nose/Throat/Neck No nasal discharge 05/06/2011 Cardiovascular No chest pain/pressure 10/2011 Respiratory No productive sputum 2011 Respiratory No chest congestion 2011 Respiratory No cough 05/06/2011 Gastrointestinal No constipation 2011 Gastrointestinal No diarrhea 05/06/2011 Gastrointestinal No nausea 05/06/2011 Gastrointestinal No vomiting 05/06/2011 Genitourinary/Nephrology No dysuria 05/06 Dermatologic No rash 05/06/2011 Cardiovascular No chest pain/pressure 09/2010 Gastrointestinal No nausea 03/04/2011 Gastrointestinal No vomiting 03/04/2011 Constitutional No night sweats 2010 Constitutional No chills 03/04/2011 Constitutional No fatigue 03/04/2011 Respiratory No cough 03/04/2011 Respiratory No chest tightness 2010 Respiratory No chest congestion 2010 Psychiatric No anxiety 03/04/2011 Psychiatric No depression 03/04/2011 Musculoskeletal No arthralgia(s) 2010 Musculoskeletal No stiffness 03/04/2011 Eyes No vision change 03/04/2011 Constitutional No recent illness 2010 Constitutional No chills 02/11/2011 Constitutional No fatigue 02/11/2011 Constitutional No fever 02/11/2011 Ears/Nose/Throat/Neck No dizziness 2010 Ears/Nose/Throat/Neck No nasal allergies 02/11/2011 Ears/Nose/Throat/Neck No nasal discharge 02/11/2011 Cardiovascular No chest pain/pressure Respiratory No productive sputum 2010 Respiratory No chest congestion 2010 Respiratory No cough 02/11/2011 Gastrointestinal No nausea 02/11/2011 Gastrointestinal No vomiting 02/11/2011 Gastrointestinal No constipation 2010 Gastrointestinal No diarrhea 02/11/2011 Genitourinary/Nephrology No dysuria 02/11 Dermatologic No rash 02/11/2011 Constitutional No recent illness 2010 Constitutional No chills 01/07/2011 Constitutional No fatigue 01/07/2011 Constitutional No fever 01/07/2011 Eyes No vision change 01/07/2011 Ears/Nose/Throat/Neck No dental pain 02/2011 Ears/Nose/Throat/Neck No dizziness 2010 Ears/Nose/Throat/Neck No dysphagia 2010 Cardiovascular No chest pain/pressure 02/2011 Cardiovascular No dyspnea 01/07/2011 Cardiovascular No edema 01/07/2011 Respiratory asthma 01/07/2011 Gastrointestinal No anorexia 01/07/2011 Gastrointestinal No constipation 2010 Gastrointestinal No diarrhea 01/07/2011 Genitourinary/Nephrology No urinary urgency 01/07/2011 Genitourinary/Nephrology No urinary frequency 01/07/2011 Dermatologic No rash 01/07/2011 Dermatologic No sores 01/07/2011 Neurologic No aphasia 01/07/2011 Neurologic No ataxia 01/07/2011 Neurologic No dizziness 01/07/2011 Psychiatric No anxiety 01/07/2011 Psychiatric No depression 01/07/2011 Physical Exam Exam Name System Name Item Name Status Result Effective Dates Notes Full Exam - General 1994 Constitutional general appearance Overall: well developed 03/02/2017 None Full Exam - General 1994 Constitutional general appearance Overall: in no acute distress 03/02/2017 None Full Exam - General 1994 Constitutional general appearance Overall: well nourished 03/02/2017 None Full Exam - General 1994 Eyes pupils and irises Overall: pupils equal, round, reactive to light and accomodation 03/02/2017 None Full Exam - General 1994 Ears/Nose/Throat otoscopic exam Overall: external auditory canals clear 03/02/2017 None Full Exam - General 1994 Ears/Nose/Throat otoscopic exam Overall: tympanic membranes clear 03/02/2017 None Full Exam - General 1994 Ears/Nose/Throat oral cavity/pharynx/larynx Overall: oral mucosa clear 03/02/2017 None Full Exam - General 1994 Ears/Nose/Throat oral cavity/pharynx/larynx Overall: oropharyngeal mucosa clear 03/02/2017 None Full Exam - General 1994 Respiratory auscultation Overall: breath sounds clear bilaterally 03/02/2017 None Full Exam - General 1994 Respiratory respiratory effort/rhythm Overall: no retractions 03/02/2017 None Full Exam - General 1994 Respiratory respiratory effort/rhythm Overall: normal rate 03/02/2017 None Full Exam - General 1994 Cardiovascular auscultation of heart Overall: regular rate 03/02/2017 None Full Exam - General 1994 Cardiovascular auscultation of heart Overall: normal heart sounds 03/02/2017 None Full Exam - General 1994 Abdomen abdominal exam Overall: no tenderness 03/02/2017 None Full Exam - General 1994 Abdomen abdominal exam Overall: normal bowel sounds 03/02/2017 None Full Exam - General 1994 Integument inspection of skin Overall: no rash, lesions 03/02/2017 None Full Exam - General 1994 Neurologic cranial nerves Overall: crainial nerves 2 - 12 grossly intact 03/02/2017 None Full Exam - General 1994 Psychiatric orientation/consciousness Overall: oriented to person, place and time 03/02/2017 None Full Exam - General 1994 Psychiatric mood and affect Overall: normal mood and affect 03/02/2017 None Full Exam - General 1994 Constitutional general appearance Overall: well developed 07/16/2016 None Full Exam - General 1994 Constitutional general appearance Overall: in no acute distress 07/16/2016 None Full Exam - General 1994 Constitutional general appearance Overall: well nourished 07/16/2016 None Full Exam - General 1994 Eyes conjunctiva /eyelids Overall: conjunctiva clear 07/16/2016 None Full Exam - General 1994 Eyes conjunctiva /eyelids Overall: eyelids normal 07/16/2016 None Full Exam - General 1994 Ears/Nose/Throat lips/teeth/gingiva Overall: benign lips 07/16/2016 None Full Exam - General 1994 Ears/Nose/Throat oral cavity/pharynx/larynx Overall: oral mucosa clear 07/16/2016 None Full Exam - General 1994 Respiratory auscultation Overall: breath sounds clear bilaterally 07/16/2016 None Full Exam - General 1994 Respiratory respiratory effort/rhythm Overall: no retractions 07/16/2016 None Full Exam - General 1994 Respiratory respiratory effort/rhythm Overall: normal rate 07/16/2016 None Full Exam - General 1994 Cardiovascular extremities Overall: no clubbing 07/16/2016 None Full Exam - General 1994 Cardiovascular auscultation of heart Overall: regular rate 07/16/2016 None Full Exam - General 1994 Cardiovascular auscultation of heart Overall: normal heart sounds 07/16/2016 None Full Exam - General 1994 Musculoskeletal head and neck Overall: head atraumatic 07/16/2016 None Full Exam - General 1994 Psychiatric orientation/consciousness Overall: oriented to person, place and time 07/16/2016 None Full Exam - General 1994 Psychiatric mood and affect Overall: normal mood and affect 07/16/2016 None Full Exam - General 1994 Psychiatric appearance Overall: well-groomed, good eye contact 07/16/2016 None Full Exam - General 1994 Constitutional general appearance Overall: well developed 06/22/2016 None Full Exam - General 1994 Constitutional general appearance Overall: in no acute distress 06/22/2016 None Full Exam - General 1994 Constitutional general appearance Overall: well nourished 06/22/2016 None Full Exam - General 1994 Eyes pupils and irises Overall: pupils equal, round, reactive to light and accomodation 06/22/2016 None Full Exam - General 1994 Ears/Nose/Throat otoscopic exam Overall: external auditory canals clear 06/22/2016 None Full Exam - General 1994 Ears/Nose/Throat otoscopic exam Overall: tympanic membranes clear 06/22/2016 None Full Exam - General 1994 Ears/Nose/Throat oral cavity/pharynx/larynx Overall: oral mucosa clear 06/22/2016 None Full Exam - General 1994 Ears/Nose/Throat oral cavity/pharynx/larynx Overall: oropharyngeal mucosa clear 06/22/2016 None Full Exam - General 1994 Respiratory auscultation Overall: breath sounds clear bilaterally 06/22/2016 None Full Exam - General 1994 Respiratory respiratory effort/rhythm Overall: no retractions 06/22/2016 None Full Exam - General 1994 Respiratory respiratory effort/rhythm Overall: normal rate 06/22/2016 None Full Exam - General 1994 Cardiovascular auscultation of heart Overall: regular rate 06/22/2016 None Full Exam - General 1994 Cardiovascular auscultation of heart Overall: normal heart sounds 06/22/2016 None Full Exam - General 1994 Abdomen abdominal exam Overall: no tenderness 06/22/2016 None Full Exam - General 1994 Abdomen abdominal exam Overall: normal bowel sounds 06/22/2016 None Full Exam - General 1994 Integument inspection of skin Overall: no rash, lesions 06/22/2016 None Full Exam - General 1994 Neurologic cranial nerves Overall: crainial nerves 2 - 12 grossly intact 06/22/2016 None Full Exam - General 1994 Psychiatric orientation/consciousness Overall: oriented to person, place and time 06/22/2016 None Full Exam - General 1994 Psychiatric mood and affect Overall: normal mood and affect 06/22/2016 None Full Exam - General 1994 Constitutional general appearance Overall: well developed 06/04/2016 None Full Exam - General 1994 Constitutional general appearance Overall: in no acute distress 06/04/2016 None Full Exam - General 1994 Constitutional general appearance Overall: well nourished 06/04/2016 None Full Exam - General 1994 Eyes pupils and irises Overall: pupils equal, round, reactive to light and accomodation 06/04/2016 None Full Exam - General 1994 Ears/Nose/Throat otoscopic exam Overall: external auditory canals clear 06/04/2016 None Full Exam - General 1994 Ears/Nose/Throat otoscopic exam Overall: tympanic membranes clear 06/04/2016 None Full Exam - General 1994 Ears/Nose/Throat oral cavity/pharynx/larynx Overall: oral mucosa clear 06/04/2016 None Full Exam - General 1994 Ears/Nose/Throat oral cavity/pharynx/larynx Overall: oropharyngeal mucosa clear 06/04/2016 None Full Exam - General 1994 Respiratory auscultation Overall: breath sounds clear bilaterally 06/04/2016 None Full Exam - General 1994 Respiratory respiratory effort/rhythm Overall: no retractions 06/04/2016 None Full Exam - General 1994 Respiratory respiratory effort/rhythm Overall: normal rate 06/04/2016 None Full Exam - General 1994 Cardiovascular auscultation of heart Overall: regular rate 06/04/2016 None Full Exam - General 1994 Cardiovascular auscultation of heart Overall: normal heart sounds 06/04/2016 None Full Exam - General 1994 Abdomen abdominal exam Overall: no tenderness 06/04/2016 None Full Exam - General 1994 Abdomen abdominal exam Overall: normal bowel sounds 06/04/2016 None Full Exam - General 1994 Musculoskeletal head and neck Overall: head atraumatic 06/04/2016 None Full Exam - General 1994 Musculoskeletal head and neck Overall: cervical spine benign 06/04/2016 None Full Exam - General 1994 Integument inspection of skin Overall: no rash, lesions 06/04/2016 None Full Exam - General 1994 Neurologic cranial nerves Overall: crainial nerves 2 - 12 grossly intact 06/04/2016 None Full Exam - General 1994 Psychiatric orientation/consciousness Overall: oriented to person, place and time 06/04/2016 None Full Exam - General 1994 Psychiatric mood and affect Overall: normal mood and affect 06/04/2016 None Full Exam - General 1994 Constitutional general appearance Overall: well developed 05/25/2016 None Full Exam - General 1994 Constitutional general appearance Overall: in no acute distress 05/25/2016 None Full Exam - General 1994 Constitutional general appearance Overall: well nourished 05/25/2016 None Full Exam - General 1994 Eyes pupils and irises Overall: pupils equal, round, reactive to light and accomodation 05/25/2016 None Full Exam - General 1994 Respiratory auscultation Overall: breath sounds clear bilaterally 05/25/2016 None Full Exam - General 1994 Respiratory respiratory effort/rhythm Overall: no retractions 05/25/2016 None Full Exam - General 1994 Respiratory respiratory effort/rhythm Overall: normal rate 05/25/2016 None Full Exam - General 1994 Cardiovascular auscultation of heart Overall: regular rate 05/25/2016 None Full Exam - General 1994 Cardiovascular auscultation of heart Overall: normal heart sounds 05/25/2016 None Full Exam - General 1994 Neurologic cranial nerves Overall: crainial nerves 2 - 12 grossly intact 05/25/2016 None Full Exam - General 1994 Psychiatric orientation/consciousness Overall: oriented to person, place and time 05/25/2016 None Full Exam - General 1994 Psychiatric mood and affect Overall: normal mood and affect 05/25/2016 None Full Exam - General 1994 Constitutional general appearance Overall: well developed 07/04/2015 None Full Exam - General 1994 Constitutional general appearance Overall: in no acute distress 07/04/2015 None Full Exam - General 1994 Constitutional general appearance Overall: well nourished 07/04/2015 None Full Exam - General 1994 Eyes pupils and irises Overall: pupils equal, round, reactive to light and accomodation 07/04/2015 None Full Exam - General 1994 Ears/Nose/Throat otoscopic exam Overall: external auditory canals clear 07/04/2015 None Full Exam - General 1994 Ears/Nose/Throat otoscopic exam Overall: tympanic membranes clear 07/04/2015 None Full Exam - General 1994 Ears/Nose/Throat oral cavity/pharynx/larynx Overall: oral mucosa clear 07/04/2015 None Full Exam - General 1994 Ears/Nose/Throat oral cavity/pharynx/larynx Overall: oropharyngeal mucosa clear 07/04/2015 None Full Exam - General 1994 Respiratory auscultation Overall: breath sounds clear bilaterally 07/04/2015 None Full Exam - General 1994 Respiratory respiratory effort/rhythm Overall: no retractions 07/04/2015 None Full Exam - General 1994 Respiratory respiratory effort/rhythm Overall: normal rate 07/04/2015 None Full Exam - General 1994 Cardiovascular auscultation of heart Overall: regular rate 07/04/2015 None Full Exam - General 1994 Cardiovascular auscultation of heart Overall: normal heart sounds 07/04/2015 None Full Exam - General 1994 Abdomen abdominal exam Overall: no tenderness 07/04/2015 None Full Exam - General 1994 Abdomen abdominal exam Overall: normal bowel sounds 07/04/2015 None Full Exam - General 1994 Musculoskeletal head and neck Overall: head atraumatic 07/04/2015 None Full Exam - General 1994 Musculoskeletal head and neck Overall: cervical spine benign 07/04/2015 None Full Exam - General 1994 Integument inspection of skin Overall: no rash, lesions 07/04/2015 None Full Exam - General 1994 Neurologic cranial nerves Overall: crainial nerves 2 - 12 grossly intact 07/04/2015 None Full Exam - General 1994 Psychiatric orientation/consciousness Overall: oriented to person, place and time 07/04/2015 None Full Exam - General 1994 Psychiatric mood and affect Overall: normal mood and affect 07/04/2015 None Full Exam - General 1994 Ears/Nose/Throat oral cavity/pharynx/larynx Overall: no masses 07/04/2015 None Full Exam - General 1994 Eyes conjunctiva /eyelids Overall: conjunctiva clear 07/04/2015 None Full Exam - General 1994 Eyes conjunctiva /eyelids Overall: cornea clear 07/04/2015 None Full Exam - General 1994 Eyes conjunctiva /eyelids Overall: eyelids normal 07/04/2015 None Full Exam - General 1994 Ears/Nose/Throat lips/teeth/gingiva Overall: benign lips 07/04/2015 None Full Exam - General 1994 Musculoskeletal gait and station Overall: normal gait 07/04/2015 None Full Exam - General 1994 Musculoskeletal gait and station Overall: normal station 07/04/2015 None Full Exam - General 1994 Neurologic gait Overall: no ataxia, no unsteadiness 07/04/2015 None Full Exam - General 1994 Psychiatric appearance Overall: well-groomed, good eye contact 07/04/2015 None Full Exam - General 1994 Psychiatric speech Overall: normal quality, no aphasia 07/04/2015 None Full Exam - General 1994 Psychiatric speech Overall: normal quality, quantity, rate 07/04/2015 None Full Exam - General 1994 Constitutional general appearance Overall: well developed 06/07/2015 None Full Exam - General 1994 Constitutional general appearance Overall: in no acute distress 06/07/2015 None Full Exam - General 1994 Constitutional general appearance Overall: well nourished 06/07/2015 None Full Exam - General 1994 Eyes pupils and irises Overall: pupils equal, round, reactive to light and accomodation 06/07/2015 None Full Exam - General 1994 Ears/Nose/Throat otoscopic exam Overall: external auditory canals clear 06/07/2015 None Full Exam - General 1994 Ears/Nose/Throat otoscopic exam Overall: tympanic membranes clear 06/07/2015 None Full Exam - General 1994 Ears/Nose/Throat oral cavity/pharynx/larynx Overall: oral mucosa clear 06/07/2015 None Full Exam - General 1994 Ears/Nose/Throat oral cavity/pharynx/larynx Overall: oropharyngeal mucosa clear 06/07/2015 None Full Exam - General 1994 Respiratory auscultation Overall: breath sounds clear bilaterally 06/07/2015 None Full Exam - General 1994 Respiratory respiratory effort/rhythm Overall: no retractions 06/07/2015 None Full Exam - General 1994 Respiratory respiratory effort/rhythm Overall: normal rate 06/07/2015 None Full Exam - General 1994 Cardiovascular auscultation of heart Overall: regular rate 06/07/2015 None Full Exam - General 1994 Cardiovascular auscultation of heart Overall: normal heart sounds 06/07/2015 None Full Exam - General 1994 Abdomen abdominal exam Overall: no tenderness 06/07/2015 None Full Exam - General 1994 Abdomen abdominal exam Overall: normal bowel sounds 06/07/2015 None Full Exam - General 1994 Musculoskeletal head and neck Overall: head atraumatic 06/07/2015 None Full Exam - General 1994 Musculoskeletal head and neck Overall: cervical spine benign 06/07/2015 None Full Exam - General 1994 Integument inspection of skin Overall: no rash, lesions 06/07/2015 None Full Exam - General 1994 Neurologic cranial nerves Overall: crainial nerves 2 - 12 grossly intact 06/07/2015 None Full Exam - General 1994 Psychiatric orientation/consciousness Overall: oriented to person, place and time 06/07/2015 None Full Exam - General 1994 Psychiatric mood and affect Overall: normal mood and affect 06/07/2015 None Full Exam - Dermatology Constitutional general appearance Overall: well nourished 11/05/2014 None Full Exam - Dermatology Constitutional general appearance Overall: well developed 11/05/2014 None Full Exam - Dermatology Constitutional general appearance Overall: in no acute distress 11/05/2014 None Full Exam - Dermatology Constitutional general appearance Overall: of normal body habitus 11/05/2014 None Full Exam - Dermatology Constitutional general appearance Overall: well groomed 11/05/2014 None Full Exam - Dermatology Psychiatric orientation Overall: oriented to person, place and time 11/05/2014 None Full Exam - Dermatology Musculoskeletal digits and nails Nails: paronychia 11/05/2014 left ring finger Full Exam - Dermatology Respiratory auscultation Overall: breath sounds clear bilaterally 11/05/2014 None Full Exam - Dermatology Respiratory respiratory effort/rhythm Overall: no retractions 11/05/2014 None Full Exam - Dermatology Respiratory respiratory effort/rhythm Overall: normal rate 11/05/2014 None Full Exam - Dermatology Eyes conjunctiva/ eyelids Overall: clear conjunctiva bilaterally 11/05/2014 None Full Exam - Dermatology Neurologic mental status Overall: alert 11/05/2014 None Full Exam - Dermatology Neurologic mental status Overall: oriented 11/05/2014 None Full Exam - Dermatology Psychiatric mood and affect Mood: depressed 11/05/2014 None Full Exam - Dermatology Psychiatric mood and affect Affect: mood congruent 11/05/2014 None Full Exam - Dermatology Psychiatric mood and affect Appropriateness: appropriate emotional responses 11/05/2014 None Full Exam - Dermatology Integument insp & palp - left upper extremity Color: erythematous 11/05/2014 paronychia left ring finger Full Exam - Dermatology Extremities inspection & palpation Left fingers: on the ring finger 11/05/2014 slight redness fingernail Full Exam - General 1994 Constitutional general appearance Overall: well developed 07/17/2014 None Full Exam - General 1994 Constitutional general appearance Overall: in no acute distress 07/17/2014 None Full Exam - General 1994 Constitutional general appearance Overall: well nourished 07/17/2014 None Full Exam - General 1994 Eyes pupils and irises Overall: pupils equal, round, reactive to light and accomodation 07/17/2014 None Full Exam - General 1994 Ears/Nose/Throat otoscopic exam Overall: external auditory canals clear 07/17/2014 None Full Exam - General 1994 Ears/Nose/Throat otoscopic exam Overall: tympanic membranes clear 07/17/2014 None Full Exam - General 1994 Ears/Nose/Throat oral cavity/pharynx/larynx Overall: oral mucosa clear 07/17/2014 None Full Exam - General 1994 Ears/Nose/Throat oral cavity/pharynx/larynx Overall: oropharyngeal mucosa clear 07/17/2014 None Full Exam - General 1994 Respiratory auscultation Overall: breath sounds clear bilaterally 07/17/2014 None Full Exam - General 1994 Respiratory respiratory effort/rhythm Overall: no retractions 07/17/2014 None Full Exam - General 1994 Respiratory respiratory effort/rhythm Overall: normal rate 07/17/2014 None Full Exam - General 1994 Cardiovascular auscultation of heart Overall: regular rate 07/17/2014 None Full Exam - General 1994 Cardiovascular auscultation of heart Overall: normal heart sounds 07/17/2014 None Full Exam - General 1994 Abdomen abdominal exam Overall: no tenderness 07/17/2014 None Full Exam - General 1994 Abdomen abdominal exam Overall: normal bowel sounds 07/17/2014 None Full Exam - General 1994 Musculoskeletal head and neck Overall: head atraumatic 07/17/2014 None Full Exam - General 1994 Musculoskeletal head and neck Overall: cervical spine benign 07/17/2014 None Full Exam - General 1994 Integument inspection of skin Overall: no rash, lesions 07/17/2014 None Full Exam - General 1994 Neurologic cranial nerves Overall: crainial nerves 2 - 12 grossly intact 07/17/2014 None Full Exam - General 1994 Psychiatric orientation/consciousness Overall: oriented to person, place and time 07/17/2014 None Full Exam - General 1994 Psychiatric mood and affect Overall: normal mood and affect 07/17/2014 None Full Exam - General 1994 Constitutional general appearance Overall: well developed 04/20/2014 None Full Exam - General 1994 Constitutional general appearance Overall: in no acute distress 04/20/2014 None Full Exam - General 1994 Constitutional general appearance Overall: well nourished 04/20/2014 None Full Exam - General 1994 Eyes pupils and irises Overall: pupils equal, round, reactive to light and accomodation 04/20/2014 None Full Exam - General 1994 Ears/Nose/Throat otoscopic exam Overall: external auditory canals clear 04/20/2014 None Full Exam - General 1994 Ears/Nose/Throat otoscopic exam Overall: tympanic membranes clear 04/20/2014 None Full Exam - General 1994 Ears/Nose/Throat oral cavity/pharynx/larynx Overall: oral mucosa clear 04/20/2014 None Full Exam - General 1994 Ears/Nose/Throat oral cavity/pharynx/larynx Overall: oropharyngeal mucosa clear 04/20/2014 None Full Exam - General 1994 Respiratory auscultation Overall: breath sounds clear bilaterally 04/20/2014 None Full Exam - General 1994 Respiratory respiratory effort/rhythm Overall: no retractions 04/20/2014 None Full Exam - General 1994 Respiratory respiratory effort/rhythm Overall: normal rate 04/20/2014 None Full Exam - General 1994 Cardiovascular auscultation of heart Overall: regular rate 04/20/2014 None Full Exam - General 1994 Cardiovascular auscultation of heart Overall: normal heart sounds 04/20/2014 None Full Exam - General 1994 Abdomen abdominal exam Overall: no tenderness 04/20/2014 None Full Exam - General 1994 Abdomen abdominal exam Overall: normal bowel sounds 04/20/2014 None Full Exam - General 1994 Musculoskeletal head and neck Overall: head atraumatic 04/20/2014 None Full Exam - General 1994 Musculoskeletal head and neck Overall: cervical spine benign 04/20/2014 None Full Exam - General 1994 Integument inspection of skin Overall: no rash, lesions 04/20/2014 None Full Exam - General 1994 Neurologic cranial nerves Overall: crainial nerves 2 - 12 grossly intact 04/20/2014 None Full Exam - General 1994 Psychiatric orientation/consciousness Overall: oriented to person, place and time 04/20/2014 None Full Exam - General 1994 Psychiatric mood and affect Overall: normal mood and affect 04/20/2014 None Full Exam - General 1994 Psychiatric mood and affect Overall: normal mood and affect 10/10/2012 None Full Exam - General 1994 Ears/Nose/Throat oral cavity/pharynx/larynx Overall: oral mucosa clear 10/10/2012 None Full Exam - General 1994 Ears/Nose/Throat oral cavity/pharynx/larynx Overall: oropharyngeal mucosa clear 10/10/2012 None Full Exam - General 1994 Respiratory auscultation Overall: breath sounds clear bilaterally 10/10/2012 None Full Exam - General 1994 Respiratory respiratory effort/rhythm Overall: no retractions 10/10/2012 None Full Exam - General 1994 Respiratory respiratory effort/rhythm Overall: normal rate 10/10/2012 None Full Exam - General 1994 Cardiovascular auscultation of heart Overall: regular rate 10/10/2012 None Full Exam - General 1994 Cardiovascular auscultation of heart Overall: normal heart sounds 10/10/2012 None Full Exam - General 1994 Abdomen abdominal exam Overall: no tenderness 10/10/2012 None Full Exam - General 1994 Abdomen abdominal exam Overall: normal bowel sounds 10/10/2012 None Full Exam - General 1994 Musculoskeletal head and neck Overall: head atraumatic 10/10/2012 None Full Exam - General 1994 Musculoskeletal head and neck Overall: cervical spine benign 10/10/2012 None Full Exam - General 1994 Integument inspection of skin Overall: no rash, lesions 10/10/2012 None Full Exam - General 1994 Neurologic cranial nerves Overall: crainial nerves 2 - 12 grossly intact 10/10/2012 None Full Exam - General 1994 Psychiatric orientation/consciousness Overall: oriented to person, place and time 10/10/2012 None Full Exam - General 1994 Constitutional general appearance Overall: well developed 10/10/2012 None Full Exam - General 1994 Constitutional general appearance Overall: in no acute distress 10/10/2012 None Full Exam - General 1994 Constitutional general appearance Overall: well nourished 10/10/2012 None Full Exam - General 1994 Eyes pupils and irises Overall: pupils equal, round, reactive to light and accomodation 10/10/2012 None Full Exam - General 1995 Ears/Nose/Throat otoscopic exam Overall: external auditory canals clear 10/10/2012 None Full Exam - General 1995 Ears/Nose/Throat otoscopic exam Overall: tympanic membranes clear 10/10/2012 None Full Exam - General 1994 Constitutional general appearance Overall: well developed 06/10/2012 None Full Exam - General 1994 Constitutional general appearance Overall: in no acute distress 06/10/2012 None Full Exam - General 1994 Constitutional general appearance Overall: well nourished 06/10/2012 None Full Exam - General 1994 Eyes pupils and irises Overall: pupils equal, round, reactive to light and accomodation 06/10/2012 None Full Exam - General 1994 Ears/Nose/Throat otoscopic exam Overall: external auditory canals clear 06/10/2012 None Full Exam - General 1994 Ears/Nose/Throat otoscopic exam Overall: tympanic membranes clear 06/10/2012 None Full Exam - General 1994 Ears/Nose/Throat oral cavity/pharynx/larynx Overall: oral mucosa clear 06/10/2012 None Full Exam - General 1994 Ears/Nose/Throat oral cavity/pharynx/larynx Overall: oropharyngeal mucosa clear 06/10/2012 None Full Exam - General 1994 Respiratory auscultation Overall: breath sounds clear bilaterally 06/10/2012 None Full Exam - General 1994 Respiratory respiratory effort/rhythm Overall: no retractions 06/10/2012 None Full Exam - General 1994 Respiratory respiratory effort/rhythm Overall: normal rate 06/10/2012 None Full Exam - General 1994 Cardiovascular auscultation of heart Overall: regular rate 06/10/2012 None Full Exam - General 1994 Cardiovascular auscultation of heart Overall: normal heart sounds 06/10/2012 None Full Exam - General 1994 Abdomen abdominal exam Overall: no tenderness 06/10/2012 None Full Exam - General 1995 Abdomen abdominal exam Overall: normal bowel sounds 06/10/2012 None Full Exam - General 1995 Musculoskeletal head and neck Overall: head atraumatic 06/10/2012 None Full Exam - General 1994 Musculoskeletal head and neck Overall: cervical spine benign 06/10/2012 None Full Exam - General 1994 Integument inspection of skin Overall: no rash, lesions 06/10/2012 None Full Exam - General 1994 Neurologic cranial nerves Overall: crainial nerves 2 - 12 grossly intact 06/10/2012 None Full Exam - General 1994 Psychiatric orientation/consciousness Overall: oriented to person, place and time 06/10/2012 None Full Exam - General 1994 Psychiatric mood and affect Overall: normal mood and affect 06/10/2012 None Full Exam - General 1994 Constitutional general appearance Overall: well developed 04/26/2012 None Full Exam - General 1994 Constitutional general appearance Overall: in no acute distress 04/26/2012 None Full Exam - General 1994 Constitutional general appearance Overall: well nourished 04/26/2012 None Full Exam - General 1994 Eyes pupils and irises Overall: pupils equal, round, reactive to light and accomodation 04/26/2012 None Full Exam - General 1995 Ears/Nose/Throat otoscopic exam Overall: external auditory canals clear 04/26/2012 None Full Exam - General 1995 Ears/Nose/Throat otoscopic exam Overall: tympanic membranes clear 04/26/2012 None Full Exam - General 1994 Ears/Nose/Throat oral cavity/pharynx/larynx Overall: oral mucosa clear 04/26/2012 None Full Exam - General 1995 Ears/Nose/Throat oral cavity/pharynx/larynx Overall: oropharyngeal mucosa clear 04/26/2012 None Full Exam - General 1994 Respiratory auscultation Overall: breath sounds clear bilaterally 04/26/2012 None Full Exam - General 1994 Respiratory respiratory effort/rhythm Overall: no retractions 04/26/2012 None Full Exam - General 1994 Respiratory respiratory effort/rhythm Overall: normal rate 04/26/2012 None Full Exam - General 1994 Cardiovascular auscultation of heart Overall: regular rate 04/26/2012 None Full Exam - General 1994 Cardiovascular auscultation of heart Overall: normal heart sounds 04/26/2012 None Full Exam - General 1994 Abdomen abdominal exam Overall: no tenderness 04/26/2012 None Full Exam - General 1994 Abdomen abdominal exam Overall: normal bowel sounds 04/26/2012 None Full Exam - General 1994 Musculoskeletal head and neck Overall: head atraumatic 04/26/2012 None Full Exam - General 1994 Musculoskeletal head and neck Overall: cervical spine benign 04/26/2012 None Full Exam - General 1994 Integument inspection of skin Overall: no rash, lesions 04/26/2012 None Full Exam - General 1994 Neurologic cranial nerves Overall: crainial nerves 2 - 12 grossly intact 04/26/2012 None Full Exam - General 1994 Psychiatric orientation/consciousness Overall: oriented to person, place and time 04/26/2012 None Full Exam - General 1994 Psychiatric mood and affect Overall: normal mood and affect 04/26/2012 None Full Exam - General 1994 Constitutional general appearance Overall: well developed 03/08/2012 None Full Exam - General 1994 Constitutional general appearance Overall: in no acute distress 03/08/2012 None Full Exam - General 1994 Constitutional general appearance Overall: well nourished 03/08/2012 None Full Exam - General 1994 Eyes pupils and irises Overall: pupils equal, round, reactive to light and accomodation 03/08/2012 None Full Exam - General 1994 Ears/Nose/Throat otoscopic exam Overall: external auditory canals clear 03/08/2012 None Full Exam - General 1994 Ears/Nose/Throat otoscopic exam Overall: tympanic membranes clear 03/08/2012 None Full Exam - General 1994 Ears/Nose/Throat oral cavity/pharynx/larynx Overall: oral mucosa clear 03/08/2012 None Full Exam - General 1994 Ears/Nose/Throat oral cavity/pharynx/larynx Overall: oropharyngeal mucosa clear 03/08/2012 None Full Exam - General 1994 Respiratory auscultation Overall: breath sounds clear bilaterally 03/08/2012 None Full Exam - General 1994 Respiratory respiratory effort/rhythm Overall: no retractions 03/08/2012 None Full Exam - General 1994 Respiratory respiratory effort/rhythm Overall: normal rate 03/08/2012 None Full Exam - General 1994 Cardiovascular auscultation of heart Overall: regular rate 03/08/2012 None Full Exam - General 1994 Cardiovascular auscultation of heart Overall: normal heart sounds 03/08/2012 None Full Exam - General 1994 Abdomen abdominal exam Overall: no tenderness 03/08/2012 None Full Exam - General 1994 Abdomen abdominal exam Overall: normal bowel sounds 03/08/2012 None Full Exam - General 1994 Musculoskeletal head and neck Overall: head atraumatic 03/08/2012 None Full Exam - General 1994 Musculoskeletal head and neck Overall: cervical spine benign 03/08/2012 None Full Exam - General 1994 Integument inspection of skin Overall: no rash, lesions 03/08/2012 None Full Exam - General 1994 Neurologic cranial nerves Overall: crainial nerves 2 - 12 grossly intact 03/08/2012 None Full Exam - General 1994 Psychiatric orientation/consciousness Overall: oriented to person, place and time 03/08/2012 None Full Exam - General 1994 Psychiatric mood and affect Overall: normal mood and affect 03/08/2012 None Full Exam - General 1994 Constitutional general appearance Overall: well nourished 11/10/2011 None Full Exam - General 1994 Constitutional general appearance Overall: well developed 11/10/2011 None Full Exam - General 1994 Constitutional general appearance Overall: in no acute distress 11/10/2011 None Full Exam - General 1994 Eyes pupils and irises Overall: pupils equal, round, reactive to light and accomodation 11/10/2011 None Full Exam - General 1994 Ears/Nose/Throat otoscopic exam Overall: external auditory canals clear 11/10/2011 None Full Exam - General 1994 Ears/Nose/Throat otoscopic exam Overall: tympanic membranes clear 11/10/2011 None Full Exam - General 1994 Ears/Nose/Throat oral cavity/pharynx/larynx Overall: oral mucosa clear 11/10/2011 None Full Exam - General 1994 Ears/Nose/Throat oral cavity/pharynx/larynx Overall: oropharyngeal mucosa clear 11/10/2011 None Full Exam - General 1994 Respiratory auscultation Overall: breath sounds clear bilaterally 11/10/2011 None Full Exam - General 1994 Respiratory respiratory effort/rhythm Overall: no retractions 11/10/2011 None Full Exam - General 1994 Respiratory respiratory effort/rhythm Overall: normal rate 11/10/2011 None Full Exam - General 1994 Cardiovascular auscultation of heart Overall: regular rate 11/10/2011 None Full Exam - General 1994 Cardiovascular auscultation of heart Overall: normal heart sounds 11/10/2011 None Full Exam - General 1994 Abdomen abdominal exam Overall: no tenderness 11/10/2011 None Full Exam - General 1994 Abdomen abdominal exam Overall: normal bowel sounds 11/10/2011 None Full Exam - General 1994 Musculoskeletal head and neck Overall: head atraumatic 11/10/2011 None Full Exam - General 1994 Musculoskeletal head and neck Overall: cervical spine benign 11/10/2011 None Full Exam - General 1995 Integument inspection of skin Overall: no rash, lesions 11/10/2011 None Full Exam - General 1994 Neurologic cranial nerves Overall: crainial nerves 2 - 12 grossly intact 11/10/2011 None Full Exam - General 1994 Psychiatric orientation/consciousness Overall: oriented to person, place and time 11/10/2011 None Full Exam - General 1994 Psychiatric mood and affect Overall: normal mood and affect 11/10/2011 None Full Exam - General 1994 Constitutional general appearance Overall: well nourished 07/14/2011 None Full Exam - General 1994 Constitutional general appearance Overall: well developed 07/14/2011 None Full Exam - General 1994 Constitutional general appearance Overall: in no acute distress 07/14/2011 None Full Exam - General 1994 Respiratory auscultation Overall: breath sounds clear bilaterally 07/14/2011 None Full Exam - General 1994 Cardiovascular auscultation of heart Overall: regular rate 07/14/2011 None Full Exam - General 1994 Cardiovascular auscultation of heart Overall: normal heart sounds 07/14/2011 None Full Exam - General 1994 Cardiovascular auscultation of heart Overall: no murmurs 07/14/2011 None Full Exam - General 1994 Integument inspection of skin Location: abdomen 07/14/2011 on the left upper abdomen Full Exam - General 1994 Integument inspection of skin Rash/Lesions: patch 07/14/2011 None Full Exam - General 1994 Integument inspection of skin Rash/Lesions: vesicle 07/14/2011 None Full Exam - General 1994 Integument inspection of skin Pigmentation: erythematous 07/14/2011 None Full Exam - General 1994 Integument inspection of skin Consistency: dry 07/14/2011 None Full Exam - General 1994 Psychiatric orientation/consciousness Overall: oriented to person, place and time 07/14/2011 None Full Exam - General 1994 Integument inspection of skin Dermatitis: erythema 07/14/2011 area of erythema was 3 x 2.5 cm Full Exam - General 1994 Abdomen abdominal exam Overall: no tenderness 07/08/2011 None Full Exam - General 1994 Abdomen abdominal exam Overall: normal bowel sounds 07/08/2011 None Full Exam - General 1994 Cardiovascular auscultation of heart Overall: regular rate 07/08/2011 None Full Exam - General 1994 Cardiovascular auscultation of heart Overall: normal heart sounds 07/08/2011 None Full Exam - General 1994 Constitutional general appearance Overall: well nourished 07/08/2011 None Full Exam - General 1994 Constitutional general appearance Overall: well developed 07/08/2011 None Full Exam - General 1994 Constitutional general appearance Overall: in no acute distress 07/08/2011 None Full Exam - General 1995 Ears/Nose/Throat otoscopic exam Overall: external auditory canals clear 07/08/2011 None Full Exam - General 1995 Ears/Nose/Throat otoscopic exam Overall: tympanic membranes clear 07/08/2011 None Full Exam - General 1994 Ears/Nose/Throat oral cavity/pharynx/larynx Overall: oral mucosa clear 07/08/2011 None Full Exam - General 1995 Ears/Nose/Throat oral cavity/pharynx/larynx Overall: oropharyngeal mucosa clear 07/08/2011 None Full Exam - General 1994 Eyes pupils and irises Overall: pupils equal, round, reactive to light and accomodation 07/08/2011 None Full Exam - General 1994 Integument inspection of skin Overall: no rash, lesions 07/08/2011 None Full Exam - General 1994 Musculoskeletal head and neck Overall: head atraumatic 07/08/2011 None Full Exam - General 1994 Musculoskeletal head and neck Overall: cervical spine benign 07/08/2011 None Full Exam - General 1994 Neurologic cranial nerves Overall: crainial nerves 2 - 12 grossly intact 07/08/2011 None Full Exam - General 1994 Psychiatric orientation/consciousness Overall: oriented to person, place and time 07/08/2011 None Full Exam - General 1994 Psychiatric mood and affect Overall: normal mood and affect 07/08/2011 None Full Exam - General 1994 Respiratory auscultation Overall: breath sounds clear bilaterally 07/08/2011 None Full Exam - General 1994 Respiratory respiratory effort/rhythm Overall: no retractions 07/08/2011 None Full Exam - General 1994 Respiratory respiratory effort/rhythm Overall: normal rate 07/08/2011 None Full Exam - General 1994 Ears/Nose/Throat otoscopic exam Overall: external auditory canals clear 06/03/2011 None Full Exam - General 1994 Ears/Nose/Throat otoscopic exam Overall: tympanic membranes clear 06/03/2011 None Full Exam - General 1994 Ears/Nose/Throat oral cavity/pharynx/larynx Overall: oral mucosa clear 06/03/2011 None Full Exam - General 1994 Ears/Nose/Throat oral cavity/pharynx/larynx Overall: oropharyngeal mucosa clear 06/03/2011 None Full Exam - General 1994 Eyes pupils and irises Overall: pupils equal, round, reactive to light and accomodation 06/03/2011 None Full Exam - General 1994 Musculoskeletal head and neck Overall: head atraumatic 06/03/2011 None Full Exam - General 1994 Musculoskeletal head and neck Overall: cervical spine benign 06/03/2011 None Full Exam - General 1994 Neurologic cranial nerves Overall: crainial nerves 2 - 12 grossly intact 06/03/2011 None Full Exam - General 1994 Psychiatric orientation/consciousness Overall: oriented to person, place and time 06/03/2011 None Full Exam - General 1994 Psychiatric mood and affect Overall: normal mood and affect 06/03/2011 None Full Exam - General 1995 Respiratory auscultation Overall: breath sounds clear bilaterally 06/03/2011 None Full Exam - General 1994 Respiratory respiratory effort/rhythm Overall: no retractions 06/03/2011 None Full Exam - General 1994 Respiratory respiratory effort/rhythm Overall: normal rate 06/03/2011 None Full Exam - General 1994 Abdomen abdominal exam Overall: no tenderness 06/03/2011 None Full Exam - General 1994 Abdomen abdominal exam Overall: normal bowel sounds 06/03/2011 None Full Exam - General 1994 Cardiovascular auscultation of heart Overall: regular rate 06/03/2011 None Full Exam - General 1994 Cardiovascular auscultation of heart Overall: normal heart sounds 06/03/2011 None Full Exam - General 1994 Constitutional general appearance Overall: well nourished 06/03/2011 None Full Exam - General 1994 Constitutional general appearance Overall: well developed 06/03/2011 None Full Exam - General 1994 Constitutional general appearance Overall: in no acute distress 06/03/2011 None Full Exam - General 1994 Integument inspection of skin Overall: no rash, lesions 06/03/2011 None Full Exam - General 1994 Constitutional general appearance Overall: well nourished 05/06/2011 None Full Exam - General 1994 Constitutional general appearance Overall: well developed 05/06/2011 None Full Exam - General 1994 Constitutional general appearance Overall: in no acute distress 05/06/2011 None Full Exam - General 1994 Eyes pupils and irises Overall: pupils equal, round, reactive to light and accomodation 05/06/2011 None Full Exam - General 1994 Ears/Nose/Throat otoscopic exam Overall: external auditory canals clear 05/06/2011 None Full Exam - General 1994 Ears/Nose/Throat otoscopic exam Overall: tympanic membranes clear 05/06/2011 None Full Exam - General 1995 Ears/Nose/Throat oral cavity/pharynx/larynx Overall: oral mucosa clear 05/06/2011 None Full Exam - General 1995 Ears/Nose/Throat oral cavity/pharynx/larynx Overall: oropharyngeal mucosa clear 05/06/2011 None Full Exam - General 1994 Respiratory auscultation Overall: breath sounds clear bilaterally 05/06/2011 None Full Exam - General 1994 Respiratory respiratory effort/rhythm Overall: no retractions 05/06/2011 None Full Exam - General 1994 Respiratory respiratory effort/rhythm Overall: normal rate 05/06/2011 None Full Exam - General 1994 Cardiovascular auscultation of heart Overall: regular rate 05/06/2011 None Full Exam - General 1994 Cardiovascular auscultation of heart Overall: normal heart sounds 05/06/2011 None Full Exam - General 1994 Abdomen abdominal exam Overall: no tenderness 05/06/2011 None Full Exam - General 1994 Abdomen abdominal exam Overall: normal bowel sounds 05/06/2011 None Full Exam - General 1994 Musculoskeletal head and neck Overall: head atraumatic 05/06/2011 None Full Exam - General 1994 Musculoskeletal head and neck Overall: cervical spine benign 05/06/2011 None Full Exam - General 1994 Neurologic cranial nerves Overall: crainial nerves 2 - 12 grossly intact 05/06/2011 None Full Exam - General 1994 Psychiatric orientation/consciousness Overall: oriented to person, place and time 05/06/2011 None Full Exam - General 1994 Psychiatric mood and affect Overall: normal mood and affect 05/06/2011 None Full Exam - General 1994 Integument inspection of skin Overall: no rash, lesions 05/06/2011 None Full Exam - General 1994 Constitutional general appearance Overall: well nourished 03/04/2011 None Full Exam - General 1994 Constitutional general appearance Overall: well developed 03/04/2011 None Full Exam - General 1994 Constitutional general appearance Overall: in no acute distress 03/04/2011 None Full Exam - General 1994 Eyes pupils and irises Overall: pupils equal, round, reactive to light and accomodation 03/04/2011 None Full Exam - General 1994 Ears/Nose/Throat otoscopic exam Overall: external auditory canals clear 03/04/2011 None Full Exam - General 1994 Ears/Nose/Throat otoscopic exam Overall: tympanic membranes clear 03/04/2011 None Full Exam - General 1994 Ears/Nose/Throat oral cavity/pharynx/larynx Overall: oral mucosa clear 03/04/2011 None Full Exam - General 1994 Ears/Nose/Throat oral cavity/pharynx/larynx Overall: oropharyngeal mucosa clear 03/04/2011 None Full Exam - General 1994 Respiratory auscultation Overall: breath sounds clear bilaterally 03/04/2011 None Full Exam - General 1994 Respiratory respiratory effort/rhythm Overall: no retractions 03/04/2011 None Full Exam - General 1994 Respiratory respiratory effort/rhythm Overall: normal rate 03/04/2011 None Full Exam - General 1994 Cardiovascular auscultation of heart Overall: regular rate 03/04/2011 None Full Exam - General 1994 Cardiovascular auscultation of heart Overall: normal heart sounds 03/04/2011 None Full Exam - General 1994 Abdomen abdominal exam Overall: no tenderness 03/04/2011 None Full Exam - General 1994 Abdomen abdominal exam Overall: normal bowel sounds 03/04/2011 None Full Exam - General 1994 Musculoskeletal head and neck Overall: head atraumatic 03/04/2011 None Full Exam - General 1994 Musculoskeletal head and neck Overall: cervical spine benign 03/04/2011 None Full Exam - General 1994 Neurologic cranial nerves Overall: crainial nerves 2 - 12 grossly intact 03/04/2011 None Full Exam - General 1994 Psychiatric orientation/consciousness Overall: oriented to person, place and time 03/04/2011 None Full Exam - General 1994 Psychiatric mood and affect Overall: normal mood and affect 03/04/2011 None Full Exam - General 1994 Respiratory respiratory effort/rhythm Overall: no retractions 02/11/2011 None Full Exam - General 1994 Respiratory respiratory effort/rhythm Overall: normal rate 02/11/2011 None Full Exam - General 1994 Cardiovascular auscultation of heart Overall: regular rate 02/11/2011 None Full Exam - General 1994 Cardiovascular auscultation of heart Overall: normal heart sounds 02/11/2011 None Full Exam - General 1994 Abdomen abdominal exam Overall: no tenderness 02/11/2011 None Full Exam - General 1994 Abdomen abdominal exam Overall: normal bowel sounds 02/11/2011 None Full Exam - General 1994 Musculoskeletal head and neck Overall: head atraumatic 02/11/2011 None Full Exam - General 1994 Musculoskeletal head and neck Overall: cervical spine benign 02/11/2011 None Full Exam - General 1994 Neurologic cranial nerves Overall: crainial nerves 2 - 12 grossly intact 02/11/2011 None Full Exam - General 1994 Psychiatric orientation/consciousness Overall: oriented to person, place and time 02/11/2011 None Full Exam - General 1994 Psychiatric mood and affect Overall: normal mood and affect 02/11/2011 None Full Exam - General 1994 Constitutional general appearance Overall: well nourished 02/11/2011 None Full Exam - General 1994 Constitutional general appearance Overall: well developed 02/11/2011 None Full Exam - General 1994 Constitutional general appearance Overall: in no acute distress 02/11/2011 None Full Exam - General 1994 Eyes pupils and irises Overall: pupils equal, round, reactive to light and accomodation 02/11/2011 None Full Exam - General 1994 Ears/Nose/Throat otoscopic exam Overall: external auditory canals clear 02/11/2011 None Full Exam - General 1994 Ears/Nose/Throat otoscopic exam Overall: tympanic membranes clear 02/11/2011 None Full Exam - General 1994 Ears/Nose/Throat oral cavity/pharynx/larynx Overall: oral mucosa clear 02/11/2011 None Full Exam - General 1994 Ears/Nose/Throat oral cavity/pharynx/larynx Overall: oropharyngeal mucosa clear 02/11/2011 None Full Exam - General 1994 Respiratory auscultation Overall: breath sounds clear bilaterally 02/11/2011 None Full Exam - General 1994 Constitutional general appearance Overall: well nourished 01/07/2011 None Full Exam - General 1994 Constitutional general appearance Overall: well developed 01/07/2011 None Full Exam - General 1994 Constitutional general appearance Overall: in no acute distress 01/07/2011 None Full Exam - General 1994 Abdomen abdominal exam Overall: no tenderness 01/07/2011 None Full Exam - General 1994 Psychiatric mood and affect Overall: normal mood and affect 01/07/2011 None Full Exam - General 1994 Psychiatric orientation/consciousness Overall: oriented to person, place and time 01/07/2011 None Full Exam - General 1994 Neurologic cranial nerves Overall: crainial nerves 2 - 12 grossly intact 01/07/2011 None Full Exam - General 1994 Musculoskeletal head and neck Overall: head atraumatic 01/07/2011 None Full Exam - General 1994 Musculoskeletal head and neck Overall: cervical spine benign 01/07/2011 None Full Exam - General 1994 Cardiovascular auscultation of heart Overall: regular rate 01/07/2011 None Full Exam - General 1994 Abdomen abdominal exam Overall: normal bowel sounds 01/07/2011 None Full Exam - General 1994 Cardiovascular auscultation of heart Overall: normal heart sounds 01/07/2011 None Full Exam - General 1994 Respiratory respiratory effort/rhythm Overall: normal rate 01/07/2011 None Full Exam - General 1994 Respiratory respiratory effort/rhythm Overall: no retractions 01/07/2011 None Full Exam - General 1994 Respiratory auscultation Overall: breath sounds clear bilaterally 01/07/2011 None Full Exam - General 1994 Ears/Nose/Throat otoscopic exam Overall: tympanic membranes clear 01/07/2011 None Full Exam - General 1994 Ears/Nose/Throat otoscopic exam Overall: external auditory canals clear 01/07/2011 None Full Exam - General 1994 Ears/Nose/Throat oral cavity/pharynx/larynx Overall: oral mucosa clear 01/07/2011 None Full Exam - General 1994 Ears/Nose/Throat oral cavity/pharynx/larynx Overall: oropharyngeal mucosa clear 01/07/2011 None Full Exam - General 1994 Eyes pupils and irises Overall: pupils equal, round, reactive to light and accomodation 01/07/2011 None Procedures Procedure Codes Date PPPS, SUBSEQ VISIT CPT -4: G0439 07/16/2016 PPPS, SUBSEQ VISIT CPT -4: G0439 07/04/2015 ADMIN PNEUMOCOCCAL VACCINE SNOMED CT: [id number] CPT-4: G0009 07/12/2013 Pneumococcal Polysaccharide Vaccine, 23-Valent, Ad CPT-4: 04581 07/12/2013 ROUTINE VENIPUNCTURE CPT-4: 22757 07/12/2013 ROUTINE VENIPUNCTURE CPT-4: 03196 07/15/2012 ROUTINE VENIPUNCTURE CPT-4: 94656 04/22/2012 ROUTINE VENIPUNCTURE CPT-4: 50589 11/24/2011 ROUTINE VENIPUNCTURE CPT-4: 80911 11/03/2011 TRIAMCINOLONE ACET INJ NOS CPT-4: J3301 07/14/2011 ROUTINE VENIPUNCTURE CPT-4: 39621 06/03/2011 Vital Signs Date Vital 03/02/2017 Blood Pressure 1: 132/74 Code : 8480-6 BMI: 38.6 Code : 05383-7 Heart Rate 1 : 71 bpm Height: 4'12" SpO2: 99% Weight: 195 lbs 07/16/2016 Blood Pressure 1: 110/52 Code : 8480-6 BMI: 38.0 Code : 07019-9 Heart Rate 1 : 68 bpm Height: 4'12" SpO2: 96% Waist Measure (cm): 99 cm Weight: 192 lbs 06/22/2016 Blood Pressure 1: 130/60 Code : 8480-6 BMI: 38.6 Code : 44671-4 Heart Rate 1 : 72 bpm Height: 4'12" SpO2: 96% Weight: 195 lbs 06/04/2016 Blood Pressure 1: 130/68 Code : 8480-6 BMI: 38.4 Code : 42240-1 Heart Rate 1 : 82 bpm Height: 4'12" SpO2: 98% Weight: 194 lbs 05/28/2016 Blood Pressure 1: 178/74 Code : 8480-6 Heart Rate 1: 103 bpm SpO2: 97% 05/25/2016 Blood Pressure 1: 142/60 Code : 8480-6 BMI: 38.4 Code : 54967-8 Heart Rate 1 : 77 bpm Height: 4'12" SpO2: 97% Weight: 194 lbs 07/04/2015 Blood Pressure 1: 140/62 Code : 8480-6 BMI: 38.4 Code : 11829-7 Heart Rate 1 : 70 bpm Height: 4'12" SpO2: 97% Waist Measure (cm): 107 cm Weight: 194 lbs 06/07/2015 Blood Pressure 1: 140/80 Code : 8480-6 BMI: 38.2 Code : 59120-6 Heart Rate 1 : 77 bpm Height: 4'12" SpO2: 97% Weight: 193 lbs 11/05/2014 Blood Pressure 1: 148/62 Code : 8480-6 BMI: 37.2 Code : 37209-3 Heart Rate 1 : 75 bpm Height: 4'12" SpO2: 96% Weight: 188 lbs 07/17/2014 Blood Pressure 1: 118/76 Code : 8480-6 BMI: 38.6 Code : 92746-4 Heart Rate 1 : 74 bpm Height: 4'12" SpO2: 97% Weight: 195 lbs 04/20/2014 Blood Pressure 1: 122/74 Code : 8480-6 BMI: 39.8 Code : 88936-1 Heart Rate 1 : 72 bpm Height: 4'12" Weight: 201 lbs 07/12/2013 Blood Pressure 1: 118/60 Code : 8480-6 BMI: 40.0 Code : 83835-9 Heart Rate 1 : 67 bpm Height: 4'12" SpO2: 95% Temperature: 36.2 (C) / 97.1 (F) Weight: 202 lbs 10/10/2012 Blood Pressure 1: 138/72 Code : 8480-6 BMI: 38.6 Code : 94414-7 Heart Rate 1 : 72 bpm Height: 5' Weight: 197 lbs 8 oz 06/10/2012 Blood Pressure 1: 150/74 Code : 8480-6 BMI: 38.7 Code : 19360-9 Heart Rate 1 : 72 bpm Height: 5' Weight: 198 lbs 04/26/2012 Blood Pressure 1: 128/74 Code : 8480-6 BMI: 38.7 Code : 84297-1 Heart Rate 1 : 78 bpm Height: 5' Weight: 198 lbs 03/08/2012 Blood Pressure 1: 134/68 Code : 8480-6 BMI: 38.9 Code : 37036-8 Heart Rate 1 : 72 bpm Height: 5' Weight: 199 lbs 5 oz 11/10/2011 Blood Pressure 1: 132/72 Code : 8480-6 BMI: 39.3 Code : 17982-9 Heart Rate 1 : 78 bpm Height: 5' Respiratory Rate: 18 bpm Weight: 201 lbs 07/14/2011 Blood Pressure 1: 128/52 Code : 8480-6 Heart Rate 1: 76 bpm Respiratory Rate : 20 bpm Temperature: 36.7 (C) / 98.1 (F) 07/08/2011 Blood Pressure 1: 132/62 Code : 8480-6 BMI: 39.5 Code : 22969-7 Heart Rate 1 : 66 bpm Height: 5' Respiratory Rate: 16 bpm Weight: 202 lbs 06/03/2011 Blood Pressure 1: 140/64 Code : 8480-6 BMI: 40.0 Code : 63074-2 Heart Rate 1 : 72 bpm Height: 5' Respiratory Rate: 16 bpm Weight: 205 lbs 05/06/2011 Blood Pressure 1: 122/62 Code : 8480-6 BMI: 40.3 Code : 94303-7 Heart Rate 1 : 76 bpm Height: 5' Respiratory Rate: 16 bpm Weight: 206 lbs 8 oz 03/04/2011 Blood Pressure 1: 160/76 Code : 8480-6 BMI: 40.5 Code : 37673-7 Heart Rate 1 : 76 bpm Height: 4'12" Respiratory Rate: 16 bpm Weight: 204 lbs 02/11/2011 Blood Pressure 1: 152/72 Code : 8480-6 BMI: 39.8 Code : 96035-8 Heart Rate 1 : 80 bpm Height: 5' Respiratory Rate: 16 bpm Weight: 204 lbs 01/07/2011 Blood Pressure 1: 138/72 Code : 8480-6 BMI: 39.5 Code : 03854-5 Heart Rate 1 : 64 bpm Height: 5' Respiratory Rate: 16 bpm Weight: 202 lbs Functional Status No Functional Status data History of Present Illness Symptom Name Status Result Effective Date Notes hypertension Quality chronic 03/02/2017 None hypertension Onset and Resolution ongoing 03/02/2017 None hypertension Blood Pressure Values patient checking blood pressure at home - did not bring in readings 03/02/2017 -Checks twice daily- Usually around 130/ 80 hypertension Alleviating Factors medication 03/02/2017 None hypertension Exacerbating Factors stress 03/02/2017 None hypertension Pertinent Findings Denies edema 03/02/2017 None diabetes mellitus Quality non-insulin dependent 03/02/2017 None diabetes mellitus Alleviating Factors medication 03/02/2017 None diabetes mellitus Exacerbating Factors diet 03/02/2017 None hypertension Quality primary hypertension 03/02/2017 None hypertension Onset of Symptom during adulthood 03/02/2017 None diabetes mellitus Glucose monitoring twice daily 03/02/2017 -checks morning and afternoon- readings are higher in the morning diabetes mellitus Test results Pt checking blood glucose readings, did not bring results to clinic 03/02/2017 None diabetes mellitus Exercise moderate exercise 03/02/2017 [facility] T, [facility], F[facility] diabetes mellitus Pertinent Findings Denies dizziness 03/02/2017 None diabetes mellitus Pertinent Findings dyspnea 03/02/2017 (asthma-related) diabetes mellitus Pertinent Findings Denies nausea 03/02/2017 None Annual Medicare Wellness Exam Alcohol Use does not drink any alcohol 07/16/2016 None Annual Medicare Wellness Exam Aspirin Use yes 07/16/2016 None Annual Medicare Wellness Exam Blood Glucose (self reported) borderline high (100-125) 07/16/2016 None Annual Medicare Wellness Exam Blood Pressure (self reported ) borderline (120/80 - 139/89) 07/16/2016 None Annual Medicare Wellness Exam Cholesterol (self reported) don't know 07/16/2016 None Annual Medicare Wellness Exam Depression (last 6 months) some of the time 07/16/2016 None Annual Medicare Wellness Exam Depression or Hopelessness almost never 07/16/2016 None Annual Medicare Wellness Exam Describe Your Health good 07/16/2016 None Annual Medicare Wellness Exam Exercise Habits exercises 4 days per week 07/16/2016 None Annual Medicare Wellness Exam Exercise Habits exercises 60 minutes per day 07/16/2016 None Annual Medicare Wellness Exam Handling Stress usually alvin effectively 07/16/2016 None Annual Medicare Wellness Exam Hemaglobin A-1C (self reported ) desireable (6 or lower) 07/16/2016 None Annual Medicare Wellness Exam Hours of Sleep 6 07/16/2016 None Annual Medicare Wellness Exam Interaction with Friends yes 07/16/2016 None Annual Medicare Wellness Exam Interests & Pleasure daily 07/16/2016 None Annual Medicare Wellness Exam Life Satisfaction very satisfied 07/16/2016 None Annual Medicare Wellness Exam Motor Vehicle Safety always fastens seat belt: y 07/16/2016 None Annual Medicare Wellness Exam Motor Vehicle Safety drives after drinking: n 07/16/2016 None Annual Medicare Wellness Exam Motor Vehicle Safety rides with someone who has been drinking: n 2016 None Annual Medicare Wellness Exam Nutrition servings of high fiber / whole grain per day: 2 07/16/2016 None Annual Medicare Wellness Exam Nutrition servings of fried food / high fat foods per day: 0 2016 None Annual Medicare Wellness Exam Nutrition servings of vegetables / fruit per day: 2 07/16/2016 None Annual Medicare Wellness Exam Smoking and Tobacco Use non smoker 07/16/2016 None Annual Medicare Wellness Exam Social & Emotional Support usually 07/16/2016 None Annual Medicare Wellness Exam Stress some of the time 07/16/2016 None Annual Medicare Wellness Exam Sun Exposure protects skin when outdoors: n 07/16/2016 None hypertension Quality chronic 06/22/2016 None hypertension Quality intermittent 06/22/2016 None hypertension Onset and Resolution ongoing 06/22/2016 None hypertension Blood Pressure Values patient checking blood pressure at home - did not bring in readings 06/22/2016 None hypertension Alleviating Factors medication 06/22/2016 None hypertension Exacerbating Factors stress 06/22/2016 None hypertension Pertinent Findings Denies dizziness 06/22/2016 None hypertension Pertinent Findings dyspnea 06/22/2016 "a little" from asthma- improved hypertension Pertinent Findings Denies edema 06/22/2016 None diabetes mellitus Quality non-insulin dependent 06/22/2016 None diabetes mellitus Glucose monitoring twice daily 06/22/2016 None diabetes mellitus Test results Pt checking blood glucose readings, did not bring results to clinic 06/22/2016 None diabetes mellitus Alleviating Factors medication 06/22/2016 None diabetes mellitus Exacerbating Factors diet 06/22/2016 None hypertension Quality chronic 06/04/2016 None hypertension Alleviating Factors medication 06/04/2016 None hypertension Exacerbating Factors stress 06/04/2016 None hypertension Onset and Resolution ongoing 06/04/2016 None hypertension Blood Pressure Values patient checking blood pressure at home - did not bring in readings 06/04/2016 None hypertension Pertinent Findings Denies dizziness 06/04/2016 None hypertension Pertinent Findings dyspnea 06/04/2016 "a little" hypertension Pertinent Findings Denies edema 06/04/2016 None hypertension Quality intermittent 06/04/2016 None hypertension Onset and Resolution sudden in onset 05/25/2016 None hypertension Onset of Symptom 3 days ago 05/25/2016 None hypertension Blood Pressure Values Stage 2:SBP 160-179 mmHg / DBP 100-109 mmHg 05/25/2016 None hypertension Frequency of Episodes daily 05/25/2016 None hypertension Quality chronic 05/25/2016 None hypertension Alleviating Factors medication 05/25/2016 None hypertension Exacerbating Factors stress 05/25/2016 None Annual Medicare Wellness Exam Alcohol Use does not drink any alcohol 07/04/2015 None Annual Medicare Wellness Exam Aspirin Use yes 07/04/2015 None Annual Medicare Wellness Exam Blood Glucose (self reported) borderline high (100-125) 07/04/2015 None Annual Medicare Wellness Exam Blood Pressure (self reported ) high (140/90 or higher) 07/04/2015 None Annual Medicare Wellness Exam Cholesterol (self reported) borderline high (200-239) 07/04/2015 None Annual Medicare Wellness Exam Depression (last 6 months) some of the time 07/04/2015 None Annual Medicare Wellness Exam Depression or Hopelessness almost never 07/04/2015 None Annual Medicare Wellness Exam Describe Your Health good 07/04/2015 None Annual Medicare Wellness Exam Exercise Habits exercises 4 days per week 07/04/2015 None Annual Medicare Wellness Exam Exercise Habits exercises 90 minutes per day 07/04/2015 None Annual Medicare Wellness Exam Handling Stress usually alvin effectively 07/04/2015 None Annual Medicare Wellness Exam Hemaglobin A-1C (self reported ) desireable (6 or lower) 07/04/2015 None Annual Medicare Wellness Exam Hours of Sleep 6 07/04/2015 None Annual Medicare Wellness Exam Interaction with Friends yes 07/04/2015 None Annual Medicare Wellness Exam Interests & Pleasure almost all of the time 07/04/2015 None Annual Medicare Wellness Exam Life Satisfaction satisfied 07/04/2015 None Annual Medicare Wellness Exam Motor Vehicle Safety always fastens seat belt: _ 07/04/2015 None Annual Medicare Wellness Exam Nutrition servings of fried food / high fat foods per day: 0 2015 None Annual Medicare Wellness Exam Nutrition servings of high fiber / whole grain per day: 3 07/04/2015 None Annual Medicare Wellness Exam Nutrition servings of vegetables / fruit per day: 2 07/04/2015 None Annual Medicare Wellness Exam Social & Emotional Support always 07/04/2015 None Annual Medicare Wellness Exam Stress almost all of the time 07/04/2015 None Annual Medicare Wellness Exam Sun Exposure protects skin when outdoors: n 07/04/2015 None diabetes mellitus Onset of Symptom onset as an adult 06/07/2015 None diabetes mellitus Quality non-insulin dependent 06/07/2015 None diabetes mellitus Quality NIDDM 06/07/2015 None diabetes mellitus Severity mild 06/07/2015 None diabetes mellitus Alleviating Factors exercise 06/07/2015 aquasize diabetes mellitus Exacerbating Factors diet 06/07/2015 None diabetes mellitus Nutrition ADA diet 06/07/2015 has been eating regular foods recently diabetes mellitus Pertinent Findings Denies dizziness 06/07/2015 None diabetes mellitus Pertinent Findings Denies lethargy 06/07/2015 None diabetes mellitus Pertinent Findings Denies nausea 06/07/2015 None diabetes mellitus Pertinent Findings Denies numbness 06/07/2015 None diabetes mellitus Pertinent Findings Denies tingling 06/07/2015 None diabetes mellitus Glucose monitoring twice daily 06/07/2015 and prn diabetes mellitus Test results Pt checking blood glucose at home, see scanned readings 2015 None diabetes mellitus Blood glucose levels greater than 120 06/07/2015 None diabetes mellitus Significant Medications glucagon 06/07/2015 None diabetes mellitus Exercise moderate exercise 06/07/2015 None finger pain due to infection Location in the left ring finger 11/05/2014 None finger pain due to infection Quality dull pain 11/05/2014 None finger pain due to infection Quality throbbing 11/05/2014 None finger pain due to infection Quality constant 11/05/2014 None finger pain due to infection Onset of Symptom 2 months ago 11/05/2014 None finger pain due to infection Mechanism of injury unknown 11/05/2014 None finger pain due to infection Pertinent Findings redness 11/05/2014 None finger pain due to infection Pertinent Findings swelling 11/05/2014 None finger pain due to infection Exacerbating Factors direct pressure 11/05/2014 None diabetes mellitus Onset of Symptom onset as an adult 07/17/2014 None diabetes mellitus Quality non-insulin dependent 07/17/2014 None diabetes mellitus Quality NIDDM 07/17/2014 None diabetes mellitus Severity mild 07/17/2014 None diabetes mellitus Alleviating Factors exercise 07/17/2014 aquas[place] diabetes mellitus Exacerbating Factors diet 07/17/2014 None diabetes mellitus Nutrition ADA diet 07/17/2014 has been eating regular foods recently diabetes mellitus Pertinent Findings Denies dizziness 07/17/2014 None diabetes mellitus Pertinent Findings Denies lethargy 07/17/2014 None diabetes mellitus Pertinent Findings Denies nausea 07/17/2014 None diabetes mellitus Pertinent Findings Denies numbness 07/17/2014 None diabetes mellitus Pertinent Findings Denies tingling 07/17/2014 None diabetes mellitus Glucose monitoring twice daily 07/17/2014 None diabetes mellitus Test results Pt checking blood glucose readings, did not bring results to clinic 07/17/2014 None diabetes mellitus Onset of Symptom onset as an adult 04/20/2014 None diabetes mellitus Quality non-insulin dependent 04/20/2014 None diabetes mellitus Quality NIDDM 04/20/2014 None diabetes mellitus Severity mild 04/20/2014 None diabetes mellitus Alleviating Factors exercise 04/20/2014 [place] diabetes mellitus Exacerbating Factors diet 04/20/2014 None diabetes mellitus Nutrition ADA diet 04/20/2014 has been eating regular foods recently diabetes mellitus Pertinent Findings Denies dizziness 04/20/2014 None diabetes mellitus Pertinent Findings Denies lethargy 04/20/2014 None diabetes mellitus Pertinent Findings Denies nausea 04/20/2014 None diabetes mellitus Pertinent Findings Denies numbness 04/20/2014 None diabetes mellitus Pertinent Findings Denies tingling 04/20/2014 None diabetes mellitus Glucose monitoring twice daily 04/20/2014 None diabetes mellitus Blood glucose levels greater than 120 10/10/2012 in the mornings diabetes mellitus Blood glucose levels between 60 and 120 10/10/2012 None diabetes mellitus Glucose monitoring twice daily 10/10/2012 None diabetes mellitus Test results Pt checking blood glucose readings, did not bring results to clinic 10/10/2012 None diabetes mellitus Quality non-insulin dependent 10/10/2012 None diabetes mellitus Quality NIDDM 10/10/2012 None diabetes mellitus Nutrition ADA diet 10/10/2012 has been eating regular foods recently diabetes mellitus Pertinent Findings Denies nausea 10/10/2012 None diabetes mellitus Pertinent Findings Denies tingling 10/10/2012 None diabetes mellitus Pertinent Findings Denies numbness 10/10/2012 None diabetes mellitus Pertinent Findings Denies lethargy 10/10/2012 None diabetes mellitus Pertinent Findings Denies dizziness 10/10/2012 None diabetes mellitus Onset of Symptom onset as an adult 10/10/2012 None diabetes mellitus Severity mild 10/10/2012 None diabetes mellitus Alleviating Factors exercise 10/10/2012 [place] diabetes mellitus Exacerbating Factors diet 10/10/2012 None diabetes mellitus Exercise moderate exercise 10/10/2012 aquasize at [facility] Weight follow up Location diffusely 06/10/2012 patient states she is exercising and doing aquasize. patient states she is dieting but has to manage diabetes as well. Weight follow up Quality intermittent 06/10/2012 has not lost any weight since last visit diabetes mellitus Quality non-insulin dependent 06/10/2012 None diabetes mellitus Severity mild 06/10/2012 None diabetes mellitus Test results Pt checking blood glucose at home, see scanned readings 2012 None diabetes mellitus Glucose monitoring daily 06/10/2012 None diabetes mellitus Alleviating Factors medication 06/10/2012 None diabetes mellitus Nutrition ADA diet 06/10/2012 None diabetes mellitus Exercise moderate exercise 06/10/2012 [place] Weight follow up Onset and Resolution ongoing 06/10/2012 None hypertension Quality chronic 04/26/2012 None diabetes mellitus Quality non-insulin dependent 04/26/2012 None diabetes mellitus Onset of Symptom onset as an adult 04/26/2012 None diabetes mellitus Quality chronic 04/26/2012 None diabetes mellitus Pertinent Findings Denies dizziness 04/26/2012 None diabetes mellitus Pertinent Findings Denies lethargy 04/26/2012 None hypertension Onset and Resolution ongoing 04/26/2012 None hypertension Onset of Symptom during adulthood 04/26/2012 None hypertension Blood Pressure Values " white coat" (home SBP<129 / DBP<84) 04/26/2012 None hypertension Severity mild 04/26/2012 None hypertension Significant Medical Conditions diabetes 04/26/2012 None hypertension Pertinent Findings Denies anxiety 04/26/2012 None diabetes mellitus Test results Pt checking blood glucose at home, see scanned readings 2011 None hypertension Quality chronic 03/08/2012 None hypertension Onset and Resolution ongoing 03/08/2012 None diabetes mellitus Quality chronic 03/08/2012 None diabetes mellitus Onset of Symptom onset as an adult 03/08/2012 None diabetes mellitus Blood glucose levels between 60 and 120 03/08/2012 None diabetes mellitus Glucose monitoring twice daily 03/08/2012 None diabetes mellitus Pertinent Findings Denies dizziness 03/08/2012 None diabetes mellitus Pertinent Findings Denies lethargy 03/08/2012 None diabetes mellitus Exercise no exercise 03/08/2012 None hypertension Onset of Symptom during adulthood 03/08/2012 None hypertension Pertinent Findings Denies anxiety 03/08/2012 None hypertension Severity mild 03/08/2012 None hypertension Blood Pressure Values " white coat" (home SBP<129 / DBP<84) 03/08/2012 None hypertension Significant Medical Conditions diabetes 03/08/2012 None hypertension Quality chronic 11/10/2011 None hypertension Onset and Resolution ongoing 11/10/2011 None hypertension Blood Pressure Values patient checking blood pressure at home - did not bring in readings 11/10/2011 None diabetes mellitus Test results Pt checking blood glucose readings, did not bring results to clinic 11/10/2011 None diabetes mellitus Quality stable 11/10/2011 None diabetes mellitus Severity mild 11/10/2011 None diabetes mellitus Alleviating Factors medication 11/10/2011 None diabetes mellitus Alleviating Factors diet 11/10/2011 None diabetes mellitus Nutrition ADA diet 11/10/2011 None diabetes mellitus Pertinent Findings Denies dizziness 11/10/2011 None diabetes mellitus Pertinent Findings Denies lethargy 11/10/2011 None diabetes mellitus Quality non-insulin dependent 11/10/2011 None hypertension Blood Pressure Values Stage 0:SBP 130-139 mmHg / DBP 85-89 mmHg 11/10/2011 None hypertension Severity mild 11/10/2011 None hypertension Triggers stress 11/10/2011 None hypertension Alleviating Factors medication 11/10/2011 None hypertension Exacerbating Factors stress 11/10/2011 None hypertension Pertinent Findings Denies anxiety 11/10/2011 None hypertension Pertinent Findings Denies confusion 11/10/2011 None hypertension Pertinent Findings Denies dizziness 11/10/2011 None hypertension Pertinent Findings Denies decreased energy 11/10/2011 None hypertension Significant Medical Conditions diabetes 11/10/2011 None diabetes mellitus Onset of Symptom onset as an adult 11/10/2011 None diabetes mellitus Glucose monitoring daily 11/10/2011 None rash Location-Major on the abdomen 07/14/2011 None rash Onset of Symptom 3 days ago 07/14/2011 None rash Pertinent Findings history of insect bite 07/14/2011 pt states had a tick embedded overnight and now has developed rash at the site rash Pertinent Findings itching 07/14/2011 None rash Pertinent Findings tenderness 07/14/2011 None rash Quality acute None rash Quality erythematous 07/14/2011 None rash Quality enlarging 07/14/2011 None rash Color erythematous 07/14/2011 None rash Onset and Resolution sudden in onset 07/14/2011 after tick bite rash Limitation on Activities does not limit activities 07/14/2011 None rash Severity mild None rash Severity worsening 07/14/2011 None rash Prior Treatments previously untreated 07/14/2011 None rash Triggers when exposed to (tick bite ) 07/14/2011 None diabetes mellitus Severity mild 07/08/2011 None diabetes mellitus Alleviating Factors medication 07/08/2011 None diabetes mellitus Alleviating Factors diet 07/08/2011 None diabetes mellitus Nutrition ADA diet 07/08/2011 None diabetes mellitus Pertinent Findings Denies dizziness 07/08/2011 None diabetes mellitus Pertinent Findings Denies lethargy 07/08/2011 None diabetes mellitus Quality non-insulin dependent 07/08/2011 None hypertension Quality chronic 07/08/2011 None hypertension Onset and Resolution ongoing 07/08/2011 None hypertension Blood Pressure Values Stage 0:SBP 130-139 mmHg / DBP 85-89 mmHg 07/08/2011 None hypertension Severity mild 07/08/2011 None hypertension Triggers stress 07/08/2011 None hypertension Alleviating Factors medication 07/08/2011 None hypertension Exacerbating Factors stress 07/08/2011 None hypertension Quality chronic 06/03/2011 None hypertension Onset and Resolution ongoing 06/03/2011 None hypertension Blood Pressure Values Stage 0:SBP 130-139 mmHg / DBP 85-89 mmHg 06/03/2011 None hypertension Severity mild 06/03/2011 None hypertension Triggers stress 06/03/2011 None hypertension Alleviating Factors medication 06/03/2011 None hypertension Exacerbating Factors stress 06/03/2011 None diabetes mellitus Onset of Symptom onset as an adult 06/03/2011 None diabetes mellitus Severity mild 06/03/2011 None diabetes mellitus Test results Pt checking blood glucose at home, see scanned readings 2011 None diabetes mellitus Alleviating Factors medication 06/03/2011 None diabetes mellitus Alleviating Factors diet 06/03/2011 None diabetes mellitus Nutrition ADA diet 06/03/2011 None diabetes mellitus Exercise no exercise 06/03/2011 None diabetes mellitus Quality non-insulin dependent 06/03/2011 None diabetes mellitus Pertinent Findings Denies dizziness 06/03/2011 None diabetes mellitus Pertinent Findings Denies lethargy 06/03/2011 None hypertension Quality chronic 05/06/2011 None hypertension Onset and Resolution ongoing 05/06/2011 None diabetes mellitus Glucose monitoring twice daily 05/06/2011 None hypertension Onset of Symptom 10 years ago 05/06/2011 None hypertension Blood Pressure Values Stage 0:SBP 130-139 mmHg / DBP 85-89 mmHg 05/06/2011 None hypertension Severity mild 05/06/2011 None hypertension Triggers stress 05/06/2011 None hypertension Alleviating Factors medication 05/06/2011 None hypertension Exacerbating Factors stress 05/06/2011 None blood pressure followup Quality chronic 03/04/2011 None blood pressure followup Onset and Resolution ongoing 03/04/2011 None blood pressure followup Onset of Symptom during adulthood 03/04/2011 None blood pressure followup Blood Pressure Values pt checking blood pressure - see scanned document 03/04 None blood pressure followup Triggers stress 03/04/2011 None hypertension Quality chronic 02/11/2011 None hypertension Quality worsening 02/11/2011 None headache Quality acute 02/11/2011 None headache Onset and Resolution ongoing 02/11/2011 None hypertension Onset and Resolution ongoing 02/11/2011 None hypertension Blood Pressure Values Stage 2:SBP 160-179 mmHg / DBP 100-109 mmHg 02/11/2011 None hypertension Frequency of Episodes increasing 02/11/2011 None hypertension Significant Medical Conditions diabetes 02/11/2011 None hypertension Triggers stress 02/11/2011 None headache Location diffusely 02/11/2011 None headache Limitation on Activities does not limit activities 02/11/2011 None headache Frequency of Episodes increasing 02/11/2011 per patient. Reports headaches when her blood pressure is elevated. diabetes mellitus Quality non-insulin dependent 01/07/2011 None diabetes mellitus Glucose monitoring twice daily 01/07/2011 states they are creeping up osteoporosis Significant Medical Conditions asthma 01/07/2011 None osteoporosis Significant Medical Conditions vitamin D deficiency 01/07/2011 None diabetes mellitus Test results fasting glucose 115-140 01/07/2011 None osteoporosis Documented By DXA scan 01/07/2011 see scanned report osteoporosis Location diffusely 01/07/2011 None osteoporosis Significant Medications calcium other 01/07/2011 None osteoporosis Significant Medications bisphosphonates 01/07/2011 None osteoporosis Status abnormal DEXA scan 01/07/2011 None diabetes mellitus Onset of Symptom onset as an adult 01/07/2011 None diabetes mellitus Severity mild 01/07/2011 None diabetes mellitus Blood glucose levels between 60 and 120 01/07/2011 None diabetes mellitus Alleviating Factors diet 01/07/2011 None diabetes mellitus Alleviating Factors medication 01/07/2011 None diabetes mellitus Alleviating Factors exercise 01/07/2011 None Advance Directives No Advance Directive data Encounters Encounter Performer Location Codes Date ([id number] EST. PATIENT, LEVEL IV Diagnosis: Type 2 diabetes mellitus with hyperglycemia[ICD10: E11.65] Diagnosis: Hypothyroidism, unspecified[ICD10: E03.9] Diagnosis: Essential (primary) hypertension[ICD10: I10] Diagnosis: Mixed hyperlipidemia[ICD10: E78.2] Rosa Mooney MD, [facility] CPT-4: 69412 03/02/2017 ([id number]) 47261 EST. PATIENT, LEVEL IV Diagnosis: Type 2 diabetes mellitus with hyperglycemia[ICD10: E11.65] Diagnosis: Essential (primary) hypertension[ICD10: I10] Diagnosis: Mixed hyperlipidemia[ICD10: E78.2] Katherine Mooney MD, [facility] CPT-4: 77642 06/22/2016 ([id number]) 40456 EST. PATIENT, LEVEL III Diagnosis: Essential (primary) hypertension[ICD10: I10] Diagnosis: Cough[ICD10: R05] Rosa Mooney MD, [facility] CPT-4: 32249 06/04/2016 ([id number]) Miscellaneous no charge Diagnosis: Essential (primary) hypertension[ICD10: I10] Katherine Mooney MD, [facility] CPT-4: 73797 05/28/2016 ([id number]) 95707 EST. PATIENT, LEVEL IV Diagnosis: Essential (primary) hypertension[ICD10: I10] Diagnosis: Mixed hyperlipidemia[ICD10: E78.2] Katherine Mooney MD, [facility] CPT-4: 42884 05/25/2016 ([id number]) 24925 EST. PATIENT, LEVEL IV Diagnosis: Type 2 diabetes mellitus with hyperglycemia[ICD10: E11.65] Diagnosis: Essential (primary) hypertension[ICD10: I10] Diagnosis: Body mass index (BMI) 38.0-38.9, adult[ICD10: Z68.38] Diagnosis: Mixed hyperlipidemia[ICD10: E78.2] Diagnosis: Hypothyroidism, unspecified[ICD10: E03.9] Diagnosis: Primary hyperparathyroidism[ICD10: E21.0] Rosa Mooney MD, [facility] CPT-4: 08117 06/07/2015 ([id number]) 45440 EST. PATIENT, LEVEL III Diagnosis: Paronychia of finger of left hand[ICD9: 681.02] Diagnosis: Depression[ICD9: 311] Rosa Mooney MD, [facility] CPT-4: 88102 11/05/2014 ([id number]) 08745 EST. PATIENT, LEVEL IV Diagnosis: ESSENTIAL HYPERTENSION[ICD9: 401.9] Diagnosis: DIABETES TYPE II[ICD9: 250.00] Katherine Mooney MD, [facility] CPT- 4: 84948 07/17/2014 ([id number]) 55670 EST. PATIENT, LEVEL IV Diagnosis: Diabetes mellitus type 2, uncontrolled[ICD9: 250.02] Diagnosis: Hypothyroidism[ICD9: 244.9] Diagnosis: Elevated lipids[ICD9: 272.4] Diagnosis: ESSENTIAL HYPERTENSION[ICD9: 401.9] Diagnosis: Asthma[ICD9: 493.90] Katherine Mooney MD, [facility] CPT-4: 53454 04/20/2014 ([id number]) 20871 EST. PATIENT, LEVEL III Diagnosis: DM W/O COMPLICATION TYPE II, UNCONTROLLED[SNOMED: 01407698] Katherine Mooney MD , [facility] CPT-4: 95919 10/10/2012 ([id number]) 48153 EST. PATIENT, LEVEL III Diagnosis: ESSENTIAL HYPERTENSION[SNOMED: 63084420] Diagnosis: DM W/O COMPLICATION TYPE II, UNCONTROLLED[SNOMED: 51548957] Diagnosis: OBESITY[ICD9: 278.00] Katherine Mooney MD, [facility] CPT-4: 92180 06/10/2012 ([id number]) 33295 EST. PATIENT, LEVEL IV Diagnosis: ESSENTIAL HYPERTENSION[SNOMED: 58108197] Diagnosis: DIABETES TYPE II[SNOMED: 905169248] Diagnosis: OBESITY[ICD9: 278.00] Diagnosis: HYPERLIPIDEMIA[ICD9: 272.4] Katherine Mooney MD, [facility] CPT- 4: 57500 04/26/2012 ([id number]) 10454 EST. PATIENT, LEVEL IV Diagnosis: ESSENTIAL HYPERTENSION[SNOMED: 76412936] Diagnosis: DIABETES TYPE II[SNOMED: 762695150] Katherine Mooney MD [facility] CPT-4: 69224 03/08/2012 ([id number]) 51080 EST. PATIENT, LEVEL IV Diagnosis: Diabetes mellitus type 2, uncontrolled[SNOMED: 25602234] Diagnosis: ESSENTIAL HYPERTENSION[SNOMED: 17071442] Diagnosis: HYPERLIPIDEMIA[ICD9: 272.4] Katherine Mooney MD [facility] CPT- 4: 41347 11/10/2011 ([id number]) 66248 EST. PATIENT, LEVEL III Diagnosis: Tick bite[ICD9: 919.4] Diagnosis: Itching[ICD9: 698.9] Katherine Mooney MD [facility] CPT-4: 36493 07/14/2011 ([id number]) 28244 EST. PATIENT, LEVEL IV Diagnosis: ESSENTIAL HYPERTENSION[SNOMED: 62578115] Diagnosis: DIABETES TYPE II[SNOMED: 031048575] Katherine Mooney MD [facility] CPT-4: 00400 07/08/2011 ([id number]) 29174 EST. PATIENT, LEVEL IV Diagnosis: ESSENTIAL HYPERTENSION[SNOMED: 02897950] Diagnosis: DIABETES TYPE II[SNOMED: 040501100] Diagnosis: OBESITY[ICD9: 278.00] Diagnosis: Osteoporosis[ICD9: 733.00] Diagnosis: Bone pain[ICD9: 733.90] VIOLETA Farah MD CPT-4: 56726 06/03/2011 ([id number]) 79787 EST. PATIENT, LEVEL IV Diagnosis: ESSENTIAL HYPERTENSION[SNOMED: 76704436] Diagnosis: DIABETES TYPE II[SNOMED: 125879450] Diagnosis: OBESITY[ICD9: 278.00] Diagnosis: DIETARY SURVEIL/NURSE DISCHARGE[ICD9: V65.3] Katherine Mooney MD [facility] CPT-4: 74948 05/06/2011 65551 EST. PATIENT, LEVEL III Diagnosis: ESSENTIAL HYPERTENSION[SNOMED: 54334980] Katherine Mooney MD [facility] CPT-4: 69646 03/04/2011 72331 EST. PATIENT, LEVEL IV Diagnosis: ESSENTIAL HYPERTENSION[SNOMED: 63896522] Diagnosis: DIABETES TYPE II[SNOMED: 782182651] [facility] CPT-4: 85238 02/11/2011 64321 EST. PATIENT, LEVEL IV Diagnosis: ESSENTIAL HYPERTENSION[SNOMED: 23148822] Diagnosis: DIABETES TYPE II[SNOMED: 507366145] Diagnosis: Osteoporosis[ICD9: 733.00] Diagnosis: DIETARY SURVEIL/NURSE DISCHARGE[ICD9: V65.3] Diagnosis: OBESITY[ICD9: 278.00] [facility] CPT-4: 19494 01/07/2011 Plan of Care Planned Activity Notes Codes Status Date Patient Education: Patient Medication Summary Completed 03/02/2017 Patient Education: Obesity Completed 03/02/2017 Appointment: Rosa Barry WPtel: [phone] (30 min) Complex 02/23/2017 Patient Education: Patient Medication Summary Completed 07/16/2016 Appointment: Carolina Diaz [facility]el[facility] [facility] - Annual Wellness Visit 07/09/2016 Appointment: Katherine Mooney WPtel: [address] [place], [place] [phone] (15 min) Moderate 06/22/2016 Patient Education: Patient Medication Summary Completed 06/22/2016 Patient Education: Obesity Completed 06/22/2016 Appointment: Katherine Mooney WPtel: [address] [place] [phone] (15 min) Moderate 06/10/2016 Appointment: Rosa Barry [facility]Ptel[phone] [place] (30 min) Complex 06/04/2016 Patient Education: Patient Medication Summary Completed 06/04/2016 Patient Education: Obesity Completed 06/04/2016 Appointment: Nurse Visit 05/28/2016 Referral: Suni Whitman Patient informed. Referral info faxed. Completed 04/2016 Patient Education: Patient Medication Summary Completed 05/28/2016 Appointment: Katherine Mooney [facility]Ptel[facility] (15 min) Moderate 05/25/2016 Patient Education: Patient Medication Summary Completed 05/25/2016 Patient Education: Obesity Completed 05/25/2016 Care Plan: Referral Order SNOMED-CT : [id number] Pending 05/25/2016 Appointment: [facility] - Annual Wellness Visit 07/04/2015 Patient Education: Patient Medication Summary Completed 07/04/2015 Patient Education: Obesity Completed 07/04/2015 Care Plan: BMI Above normal followup SELF-MGMT EDUC & TRAIN 1 PT Ordered 2015 Patient Education: Patient Medication Summary Completed 06/07/2015 Patient Education: Obesity Completed 06/07/2015 Patient Education: Hypertension Completed 06/07/2015 Care Plan: BMI Above normal followup SELF-MGMT EDUC & TRAIN 1 PT Ordered 2015 Appointment: (15 min) Moderate 11/05/2014 Patient Education: Patient Medication Summary Completed 11/05/2014 Appointment: Katherine Mooney WPtel: [address] [place] [phone] [place] Follow up 07/17/2014 Patient Education: Patient Medication Summary Completed 07/17/2014 Patient Education: Hypertension Completed 07/17/2014 Appointment: Katherine Mooney WPtel: [address] [place], [place] [phone] [place] Follow up 04/20/2014 Patient Education: Patient Medication Summary Completed 04/20/2014 Patient Education: Hypertension Completed 04/20/2014 Appointment: Katherine Mooney WPtel: [address] [place] [phone] [place] Lab Draw 07/12/2013 Appointment: Katherine Mooney WPtel: [facility] [facility] - Initial Preventive Physical Exam 07/12/2013 Patient Education: Patient Medication Summary Completed 07/12/2013 Patient Education: Hypertension Completed 07/12/2013 Patient Education: Patient Medication Summary Completed 07/12/2013 Appointment: Katherine Mooney WPtel: [facility] [place] Follow up 05/04/2013 Appointment: Katherine Mooney WPtel: [facility] Follow up 04/17/2013 Appointment: Katherine Mooney WPtel: [address] [place] [address] Follow up 10/10/2012 Patient Education: Patient Medication Summary Completed 10/10/2012 Appointment: Rosa Barry WPtel: [phone] [place] Lab Draw 07/15/2012 Patient Education: Patient Medication Summary Completed 07/15/2012 Appointment: Rosa Barry WPtel: [phone] Follow up 06/10/2012 Patient Education: Patient Medication Summary Completed 06/10/2012 Patient Education: Hypertension Completed 06/10/2012 Appointment: Katherine Mooney WPtel: [address] [place] [phone] Follow up 05/31/2012 Appointment: Katherine Mooney WPtel: [address] [place] [phone] Follow up 04/26/2012 Patient Education: Patient Medication Summary Completed 04/26/2012 Patient Education: Hypertension Completed 04/26/2012 Appointment: Katherine Mooney WPtel: [facility] Lab Draw 04/22/2012 Patient Education: Patient Medication Summary Completed 04/22/2012 Patient Education: Hypertension Completed 04/22/2012 Appointment: Katherine Mooney WPtel: [facility] Established Patient Preventative visit 03/08/2012 Patient Education: Patient Medication Summary Completed 03/08/2012 Patient Education: Hypertension Completed 03/08/2012 Appointment: Rosa Barry WPtel[phone] Injection 12/09/2011 Patient Education: Patient Medication Summary Completed 11/24/2011 Appointment: Katherine Mooney WPtel: [address] [place] [phone] Follow up 11/10/2011 Patient Education: Patient Medication Summary Completed 11/10/2011 Patient Education: High Blood Pressure: Essential Hypertension Completed 2011 Patient Education: Patient Medication Summary Completed 11/03/2011 Patient Education: High Blood Pressure: Essential Hypertension Completed 2011 Appointment: Katherine Mooney WPtel: [address] [place], [place] [phone] Other 07/14/2011 Patient Education: Patient Medication Summary Completed 07/14/2011 Appointment: Katherine Mooney WPtel: [address] [place], [place] [phone] Other 07/08/2011 Patient Education: Patient Medication Summary Completed 07/08/2011 Patient Education: High Blood Pressure: Essential Hypertension Completed 2011 Appointment: Katherine Mooney WPtel: [address] [place], [place] [phone] Other 07/01/2011 Appointment: Katherine Mooney WPtel: [address] [place] [phone] Other 06/03/2011 Patient Education: Patient Medication Summary Completed 06/03/2011 Patient Education: High Blood Pressure: Essential Hypertension Completed 2011 Appointment: Katherine Mooney WPtel: [address] [place], [place] [phone] Other 05/06/2011 Patient Education: Patient Medication Summary Completed 05/06/2011 Patient Education: High Blood Pressure: Essential Hypertension Completed 2011 Patient Education: .Amazing charts Diabetic meal planning guide Completed 05/06 Appointment: Katherine Mooney WPtel: [address] [place], [place] [phone] Other 03/18/2011 Appointment: Katherine Mooney WPtel: [address] [place], [place] [phone] Other 03/04/2011 Patient Education: Patient Medication Summary Completed 03/04/2011 Patient Education: High Blood Pressure: Essential Hypertension Completed 2010 Appointment: [facility] [place] Follow up 02/18/2011 Appointment: Rosa Barry WPtel: [phone] [place] Follow up 02/11/2011 Appointment: Katherine Mooney WPtel: [facility] [place] Other 02/11/2011 Patient Education: Patient Medication Summary Completed 02/11/2011 Patient Education: High Blood Pressure: Essential Hypertension Completed 2010 Appointment: Katherine Mooney WPtel: [facility] [place] Other 01/08/2011 Appointment: Katherine Mooney WPtel: [facility] Other 01/07/2011 Patient Education: Patient Medication Summary Completed 01/07/2011 Appointment: Katherine Mooney WPtel: [facility] [place] Lab Draw 12/26/2010 Referral: Suni Whitman Referral Completed Instructions No Instructions
--- OUTSIDE RECORDS SUMMARY | 2017-11-14 09:51 | XMS REPORT | CCD ---
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/[address]: 104116508 Nonsmoker 01/07/2011 Has the patient ever used [...] Unknown Osteoporosis Unknown Active 01/07/2011 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 01/07/2011 Unknown OBESITY ICD-9: [...] 01/07/2011 Active Osteoporosis Unknown 01/07/2011 Active 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 01/07/2011 Active OBESITY ICD-9: 278.00 01/07/2011 Active Osteoporosis ICD-9: 733.00 01/07/2011 Active Medications Medication Codes Instructions Start Date Stop Date Status Fill Instructions Ventolin HFA 90 mcg/actuation aerosol inhaler RxNorm: 132717 INHALE ONE TO TWO PUFFS BY MOUTH EVERY 4 HOURS NEEDED 04/26/2017 06/28/2017 Active metformin 1,000 mg tablet RxNorm: 173817 TAKE ONE TABLET BY MOUTH TWICE A DAY 04/23/2017 06/21/2017 Active Synthroid 75 mcg tablet RxNorm: 557038 1 Tablet(s) PO daily TAKE ONE TABLET BY MOUTH DAILY 03/02/2017 11/26/2017 Active Ventolin HFA 90 mcg/actuation aerosol inhaler RxNorm: 029782 1-2 Puff(s) INH Q4 PRN 03/02/2017 04/25/2017 Inactive Synthroid 50 mcg tablet RxNorm: 615479 TAKE ONE TABLET BY MOUTH DAILY 12/30/2016 03/01/2017 Inactive metformin 1,000 mg tablet RxNorm: 296854 TAKE ONE TABLET BY MOUTH TWICE A DAY 11/16/2016 12/15/2016 Inactive metformin 1,000 mg tablet RxNorm: 515872 TAKE ONE TABLET BY MOUTH TWICE A DAY 11/16/2016 11/15/2016 Inactive metformin 1,000 mg tablet RxNorm: 961137 TAKE ONE TABLET BY MOUTH TWICE A DAY 10/12/2016 11/10/2016 Inactive Synthroid 50 mcg tablet RxNorm: 678325 TAKE ONE TABLET BY MOUTH DAILY 10/05/2016 12/29/2016 Inactive metformin 1,000 mg tablet RxNorm: 890638 TAKE ONE TABLET BY MOUTH TWICE A DAY 09/08/2016 10/07/2016 Inactive metformin 1,000 mg tablet RxNorm: 065770 TAKE ONE TABLET BY MOUTH TWICE A DAY 08/06/2016 09/04/2016 Inactive amlodipine 10 mg tablet RxNorm: 408417 Tablet(s) TAKE ONE TABLET BY MOUTH DAILY 07/31/2016 07/25/2017 Active amlodipine 10 mg tablet RxNorm: 648587 TAKE ONE TABLET BY MOUTH DAILY 07/30/2016 07/29/2016 Inactive amlodipine 10 mg tablet RxNorm: 311325 TAKE ONE TABLET BY MOUTH DAILY 07/30/2016 07/30/2016 Inactive Advair Diskus 250 mcg-50 mcg/dose powder for inhalation RxNorm: 8554140 INHALE ONE PUFF BY MOUTH TWICE A DAY 07/21/2016 06/15/2017 Active metformin 1,000 mg tablet RxNorm: 782949 TAKE ONE TABLET BY MOUTH TWICE A DAY 07/06/2016 08/04/2016 Inactive atorvastatin 20 mg tablet RxNorm: 479945 1 Tablet(s) PO daily 06/22/2016 03/01/2017 Inactive atorvastatin 20 mg tablet RxNorm: 645801 1 Tablet(s) PO TIW 06/21/2016 Inactive metoprolol succ 50 mg-hydrochlorothiazide 12.5 mg tablet, ext.rel 24 hr RxNorm: 770888 1 Tablet(s) PO QPM 05/25/20162016 Inactive Synthroid 50 mcg tablet RxNorm: 961858 TAKE ONE TABLET BY MOUTH DAILY 05/12/2016 10/04/2016 Inactive Ziac 10 mg-6.25 mg tablet RxNorm: 164031 TAKE ONE TABLET BY MOUTH TWICE A DAY 05/11/2016 05/24/2016 Inactive metformin 1,000 mg tablet RxNorm: 653567 TAKE ONE TABLET BY MOUTH TWICE A DAY 04/27/2016 06/25/2016 Inactive ProAir HFA 90 mcg/actuation aerosol inhaler RxNorm: 320624 INHALE TWO PUFFS BY MOUTH THREE TIMES A DAY 04/27/20162016 Inactive amlodipine 10 mg tablet RxNorm: 913249 TAKE ONE TABLET BY MOUTH DAILY 03/27/2016 07/24/2016 Inactive metformin 1,000 mg tablet RxNorm: 817036 TAKE ONE TABLET BY MOUTH TWICE A DAY 01/23/2016 04/21/2016 Inactive amlodipine 10 mg tablet RxNorm: 078519 TAKE ONE TABLET BY MOUTH DAILY 12/25/2015 03/23/2016 Inactive Synthroid 50 mcg tablet RxNorm: 683959 TAKE ONE TABLET BY MOUTH DAILY 11/15/2015 05/11/2016 Inactive Synthroid 50 mcg tablet RxNorm: 601720 TAKE ONE TABLET BY MOUTH DAILY 09/16/2015 11/14/2015 Inactive amlodipine 10 mg tablet RxNorm: 155095 TAKE ONE TABLET BY MOUTH DAILY 09/03/2015 12/01/2015 Inactive Tamiflu 75 mg capsule RxNorm: 395816 1 Capsule(s) PO BID 201507/22/2015 Inactive Tamiflu 75 mg capsule RxNorm: 026609 1 Capsule(s) PO BID 201507/27/2015 Inactive Synthroid 50 mcg tablet RxNorm: 733659 TAKE ONE TABLET BY MOUTH DAILY 06/21/2015 09/15/2015 Inactive Advair Diskus 250 mcg-50 mcg/dose powder for inhalation RxNorm: 1281112 1 Puff(s) INH BID 06/20/2015 06/13/2016 Inactive ONE PUFF BY INHALATION TWICE DAILY . Advair Diskus 250 mcg-50 mcg/dose powder for inhalation RxNorm: 2071790 1 Puff(s) INH BID 06/10/2015 06/19/2015 Inactive ONE PUFF BY INHALATION TWICE DAILY . Advair Diskus 250 mcg-50 mcg/dose powder for inhalation RxNorm: 7619632 1 Puff(s) INH BID 06/07/2015 06/09/2015 Inactive ONE PUFF BY INHALATION TWICE DAILY . Ziac 10 mg-6.25 mg tablet RxNorm: 719782 1 Tablet(s) PO BID 02/201601/04/2016 Inactive ProAir HFA 90 mcg/actuation aerosol inhaler RxNorm: 795901 2 Puff(s) INH TID INHALE 2 PUFFS BY MOUTH THREE TIMES DAILY 05/01/2015 11/26/2015 Inactive Ziac 10 mg-6.25 mg tablet RxNorm: 322049 Tablet(s) BID TABLET(S) PO 04/16/2015 05/09/2015 Inactive amlodipine 10 mg tablet RxNorm: 082186 TAKE ONE TABLET BY MOUTH DAILY 04/15/2015 08/12/2015 Inactive metformin 1,000 mg tablet RxNorm: 422254 1 TABLET(S) BID 1 TABLET(S) PO BID 03/15/2015 06/12/2015 Inactive Patient requests 90 days supply metformin 1,000 mg tablet RxNorm: 503372 1 Tablet(s) PO BID 1 TABLET(S) PO BID 03/14/2015 09/09/2015 Inactive metformin 1,000 mg tablet RxNorm: 733845 1 Tablet(s) BID 1 TABLET(S) PO BID 03/13/2015 03/13/2015 Inactive Synthroid 50 mcg tablet RxNorm: 755330 Tablet(s) PO TAKE ONE TABLET BY MOUTH DAILY 02/26/2015 06/20/2015 Inactive metformin 1,000 mg tablet RxNorm: 944721 1 Tablet(s) BID 1 TABLET(S) PO BID 11/26/2014 12/03/2014 Inactive cephalexin 500 mg tablet RxNorm: 203973 1 Tablet(s) PO TID 02/201511/06/2014 Inactive cephalexin 500 mg tablet RxNorm: 671263 1 Tablet(s) PO TID 02/201511/13/2014 Inactive Prozac 10 mg capsule RxNorm: 803513 1 Capsule(s) PO daily 11/0507/03/2015 Inactive Synthroid 50 mcg tablet RxNorm: 286112 Tablet(s) PO TAKE ONE TABLET BY MOUTH DAILY 07/17/2014 02/25/2015 Inactive ProAir HFA 90 mcg/actuation aerosol inhaler RxNorm: 297737 2 Puff(s) INH TID INHALE 2 PUFFS BY MOUTH THREE TIMES DAILY 07/17/2014 02/11/2015 Inactive amlodipine 10 mg tablet RxNorm: 133617 Tablet(s) 1 TABLET(S) PO DAILY 07/17/2014 04/14/2015 Inactive lovastatin 20 mg tablet RxNorm: 294743 Tablet(s) TAKE 1 TABLET BY MOUTH EVERY NIGHT AT BEDTIME 07/17/2014 01/12/2015 Inactive Advair Diskus 250 mcg-50 mcg/dose powder for inhalation RxNorm: 7222922 1 Puff(s) INH BID 07/17/2014 07/16/2014 Inactive ONE PUFF BY INHALATION TWICE DAILY . metformin 1,000 mg tablet RxNorm: 716204 Tablet(s) 1 TABLET(S) PO BID 07/17/2014 11/25/2014 Inactive Ziac 10 mg-6.25 mg tablet RxNorm: 515933 Tablet(s) TABLET(S) PO 07/17/2014 04/12/2015 Inactive TAKE 1 TABLET BY MOUTH TWICE DAILY . Advair Diskus 250 mcg-50 mcg/dose powder for inhalation RxNorm: 2308878 1 Puff(s) INH BID 07/17/2014 06/06/2015 Inactive ONE PUFF BY INHALATION TWICE DAILY . lovastatin 20 mg tablet RxNorm: 241779 TAKE 1 TABLET BY MOUTH EVERY NIGHT AT BEDTIME 05/31/2014 07/16/2014 Inactive lovastatin 20 mg tablet RxNorm: 330490 1 Tablet(s) PO QHS TAKE 1 TABLET BY MOUTH EVERY NIGHT AT BEDTIME 05/29/20142014 Inactive Synthroid 50 mcg tablet RxNorm: 632833 1 TABLET(S) PO DAILY TAKE ONE TABLET BY MOUTH DAILY 03/02/2014 07/16/2014 Inactive Synthroid 50 mcg tablet RxNorm: 046370 1 Tablet(s) PO daily TAKE ONE TABLET BY MOUTH DAILY 03/02/2014 05/30/2014 Inactive metformin 1,000 mg tablet RxNorm: 838723 1 TABLET(S) PO BID 07/16/2014 Inactive Ziac 10 mg-6.25 mg tablet RxNorm: 653076 TABLET(S) PO 201307/16/2014 Inactive TAKE 1 TABLET BY MOUTH TWICE DAILY . Symbicort 160 mcg-4.5 mcg/actuation HFA aerosol inhaler RxNorm: 5497323 1 INH BID 10/29/2013 10/23/2014 Inactive amlodipine 10 mg tablet RxNorm: 295610 1 TABLET(S) PO DAILY 07/16/2014 Inactive Synthroid 50 mcg tablet RxNorm: 220373 1 Tablet(s) PO daily TAKE ONE TABLET BY MOUTH DAILY 10/02/2013 03/01/2014 Inactive ProAir HFA 90 mcg/actuation aerosol inhaler RxNorm: 1097168 2 Puff(s) INH TID INHALE 2 PUFFS BY MOUTH THREE TIMES DAILY 10/02/2013 04/29/2014 Inactive lovastatin 20 mg tablet RxNorm: 869306 Tablet(s) PO TAKE 1 TABLET BY MOUTH EVERY NIGHT AT BEDTIME 08/24/2013 05/28/2014 Inactive metformin 1,000 mg tablet RxNorm: 674961 1 Tablet(s) PO BID 02/13/2014 Inactive metformin 1,000 mg tablet RxNorm: 726243 1 Tablet(s) PO BID 07/18/2013 Inactive metformin 500 mg tablet RxNorm: 346571 2 Tablet(s) PO BID TAKE 1 TABLET BY MOUTH TWICE DAILY 07/17/2013 07/18/2013 Inactive Synthroid 50 mcg tablet RxNorm: 917665 Tablet(s) PO TAKE ONE TABLET BY MOUTH DAILY 07/13/2013 10/01/2013 Inactive Pneumovax 23 25 mcg/0.5 mL injection RxNorm: 373799 1/2 Milliliter(s) Inj 07/12/2013 07/12/2013 Inactive lovastatin 20 mg tablet RxNorm: 059012 Tablet(s) PO TAKE 1 TABLET BY MOUTH EVERY NIGHT AT BEDTIME 07/03/2013 08/23/2013 Inactive Patient requests 90 days supply* * lovastatin 20 mg tablet RxNorm: 374526 Tablet(s) PO TAKE 1 TABLET BY MOUTH EVERY NIGHT AT BEDTIME 06/30/2013 07/02/2013 Inactive Synthroid 50 mcg tablet RxNorm: 458026 Tablet(s) PO TAKE ONE TABLET BY MOUTH DAILY 04/24/2013 07/16/2014 Inactive FreeStyle Lite Strips RxNorm: strip miscellaneous TEST TWICE DAILY 04/03/2013 No Stop Date Active Ziac 10 mg-6.25 mg tablet RxNorm: 291004 Tablet(s) PO 201201/28/2014 Inactive TAKE 1 TABLET BY MOUTH TWICE DAILY . Synthroid 50 mcg tablet RxNorm: 511726 1 Tablet(s) PO daily TAKE ONE TABLET BY MOUTH DAILY 11/10/2012 04/23/2013 Inactive metformin 500 mg tablet RxNorm: 889754 1 Tablet(s) PO BID TAKE 1 TABLET BY MOUTH TWICE DAILY 10/24/2012 07/16/2013 Inactive Symbicort 160 mcg-4.5 mcg/actuation HFA aerosol inhaler RxNorm: 6646387 1 INH BID 09/21/2012 10/15/2013 Inactive Symbicort 160 mcg-4.5 mcg/actuation HFA Aerosol Inhaler RxNorm: 5332686 1 INH BID 09/21/2012 09/20/2012 Inactive ProAir HFA 90 mcg/actuation Aerosol Inhaler RxNorm: 0334377 INH INHALE 2 PUFFS BY MOUTH THREE TIMES DAILY 09/21/20122013 Inactive ProAir HFA 90 mcg/actuation Aerosol Inhaler RxNorm: 184219 HFA Aerosol Inhaler INH INHALE 2 PUFFS BY MOUTH THREE TIMES DAILY 09/20/2012 09/20/2012 Inactive amlodipine 10 mg tablet RxNorm: 379485 Tablet(s) PO TAKE 1 TABLET BY MOUTH DAILY 08/29/2012 No Stop Date Active Synthroid 50 mcg tablet RxNorm: 955941 Tablet(s) PO TAKE ONE TABLET BY MOUTH DAILY 06/01/2012 11/09/2012 Inactive lovastatin 20 mg tablet RxNorm: 693664 Tablet(s) PO TAKE 1 TABLET BY MOUTH EVERY NIGHT AT BEDTIME 06/01/2012 06/29/2013 Inactive FreeStyle Lite Strips RxNorm: Miscellaneous BID 03/21/2012 04/02/2013 Inactive Ziac 10 mg-6.25 mg tablet RxNorm: 402016 Tablet(s) PO 201102/07/2013 Inactive TAKE 1 TABLET BY MOUTH TWICE DAILY . 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 ProAir HFA 90 mcg/actuation Aerosol Inhaler RxNorm: 318197 HFA Aerosol Inhaler INH 08/31/2011 09/19/2012 Inactive USE 2 PUFFS BY MOUTH THREE TIMES DAILY Advair Diskus 250 mcg-50 mcg/dose for Inhalation RxNorm: 1190989 Disk with Device INH 2011 11/09/2011 Inactive ONE PUFF BY INHALATION TWICE DAILY . doxycycline hyclate 100 mg Tab RxNorm: 317865 1 Tablet(s) PO BID 07/14/2011 07/23/2011 Inactive Kenalog 40 mg/mL Susp for Injection RxNorm: 7973260 Milliliter(s) Inj 07/14/2011 07/14/2011 Inactive Atelvia 35 mg Tab RxNorm: 1994858 Tablet(s) PO 06/01/2011 03/07/2012 Inactive TAKE 1 TABLET BY MOUTH EVERY WEEK lovastatin 20 mg tablet RxNorm: 416894 Tablet(s) PO 05/21/2011 05/31/2012 Inactive TAKE 1 TABLET BY MOUTH EVERY NIGHT AT BEDTIME Synthroid 25 mcg tablet RxNorm: 679469 Tablet(s) PO 04/23/2011 11/09/2011 Inactive TAKE ONE TABLET BY MOUTH DAILY Ziac 10 mg-6.25 mg tablet RxNorm: 416322 2 Tablet(s) PO daily 02/10/2011 02/22/2012 Inactive ProAir HFA 90 mcg/actuation Aerosol Inhaler RxNorm: 336591 2 Puff(s) INH TID 01/07/2011 08/04/2011 Inactive and prn amlodipine 10 mg tablet RxNorm: 494071 1 Tablet(s) PO daily 02/201112/08/2011 Inactive metformin 500 mg tablet RxNorm: 562248 1 Tablet(s) PO BID 01/0710/24/2012 Inactive Advair Diskus 250 mcg-50 mcg/dose for Inhalation RxNorm: 3304908 1 Puff(s) INH BID 12/04/2010 12/04/2010 Inactive Ziac 10 mg-6.25 mg Tab RxNorm: 877285 1 Tablet(s) PO daily 10/201001/02/2011 Inactive aspirin 325 mg Tab RxNorm: 196129 1 Tablet(s) PO PRN pt uses for headaches No Start Date Active Calcium RxNorm: 1 PO daily 2000 units daily No Start Date Active Reclast 5 mg/100 mL IV RxNorm: 078896 Milliliter(s) IV pt receives this in november at No Start Date Active Cinnamon oral RxNorm: 439968 oral No Start Date Active Vitamin D2 50,000 unit capsule RxNorm: 766712 1 [place]aps[place] [address] units weekly x [address] 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 No Start Date Active bisoprolol 10 mg-hydrochlorothiazide 6.25 mg tablet RxNorm: 922346 1 Tablet(s) PO BID No Start Date Active Accu-Chek Active Test Strips RxNorm: Miscellaneous lety No Start Date Active Vitamin D3 4,000 unit capsule RxNorm: 4297691 1 Capsule(s) PO daily No Start Date Active losartan 100 mg tablet RxNorm: 592438 1 Tablet(s) PO daily No Start Date Active Fish Oil (with DHA-EPA) oral RxNorm: 8682683 oral No Start Date Active Diovan 160 mg Tab RxNorm: 025193 1 Tablet(s) PO daily No Start Date 03/04/2011 Inactive multivitamin Oral RxNorm: Oral No Start Date 03/01/2017 Inactive FreeStyle Lite Strips RxNorm: Miscellaneous BID No Start Date 03/20/2012 Inactive Ziac 10 mg-6.25 mg Tab RxNorm: 012691 1 Tablet(s) PO daily No Start Date 02/09/2011 Inactive ProAir HFA Inhl RxNorm : Inhalation No Start Date 06/22/2016 Inactive metformin 500 mg Tab RxNorm: 253573 Tablet(s) PO No Start Date 01/06/2011 Inactive 1/ 2 q am and 1 q sarah Synthroid 25 mcg Tab RxNorm: 958385 1 Tablet(s) PO daily No Start Date 04/22/2011 Inactive Vitamin D 2,000 unit Cap RxNorm: 1 Capsule(s) PO daily No Start Date 03/07/2012 Inactive ProAir HFA 90 mcg/Actuation Aerosol Inhaler RxNorm: 569318 INH BID No Start Date 01/06/2011 Inactive and prn Atelvia 35 mg Tab RxNorm: 1523183 1 Tablet(s) PO daily No Start Date 05/31/2011 Inactive amlodipine 5 mg Tab RxNorm: 286013 1 Tablet(s) PO daily No Start Date 03/04/2011 Inactive ZOSTAVAX (PF) 19,400 unit Sub-Q Soln RxNorm: 5588973 SQ No Start Date 11/23/2011 Inactive 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 for administration lovastatin 20 mg Tab RxNorm: 358613 1 Tablet(s) PO daily No Start Date 05/20/2011 Inactive Medication Administered Medication Codes Instructions Start Date Status Pneumovax 23 25 mcg/0.5 mL injection RxNorm: 849043 1/2Milliliter 07/12/2013 No longer Active Kenalog 40 mg/mL Susp for Injection RxNorm: 4830181 Milliliter 07/14/2011 No longer Active Immunizations Vaccine [...] abnormal findings ICD-10: Z00.00 ICD-9: V70.0 07/04/2015 Essential (primary) hypertension ICD-10: I10 ICD-9: 401.9 06/07/2015 Body mass index (BMI) 38.0-38.9, adult ICD-10: Z68.38 ICD-9: V85.38 06/07/2015 Primary hyperparathyroidism ICD-10: E21.0 ICD-9: 252.01 06/07/2015 Paronychia of finger of left hand [...] 278.00 06/10/2012 Tick bite ICD-9: 919.4 07/14/2011 Itching ICD-9: 698.9 07/14/2011 Allergic reaction ICD-9: 995.3 2011 Bone pain ICD-9: 733.90 06/03/2011 Osteoporosis ICD-9: 733.00 06/03/2011 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 10/2011 Reason For Visit Reason [...] Observation Code Item Item Code Result Date Comp Metabolic Udr106 NA 139 mEq/L 05/25/2016 Comp Metabolic Npy858 K 4.2 mEq/L 05/25/2016 Comp Metabolic Pqo320 CL 103 mEq/L 05/25/2016 Comp Metabolic Fgs431 CO2 27.0 mEq/L 05/25/2016 Comp Metabolic Jnx779 ANION GAP 13 05/25/2016 Comp Metabolic Gyy338 GLUCOSE 129 mg/dL 05/25/2016 Comp Metabolic Jva326 Creat 0.6 mg/dL 05/25/2016 Comp Metabolic Qre486 eGFR 105 ml/min/1.73m2 05/25/2016 Comp Metabolic Dkf207 BUN 10 mg/dL 05/25/2016 Comp Metabolic Cgl711 B/C Ratio 16.7 Ratio 05/25/2016 Comp Metabolic Bwy773 CALCIUM 9.3 mg/dL 05/25/2016 Comp Metabolic Nxb563 ALK PHOS 66 U/L 05/25/2016 Comp Metabolic Esn294 AST(SGOT) 12 U/L 05/25/2016 Comp Metabolic Nrr631 ALT(SGPT) 17 U/L 05/25/2016 Comp Metabolic Wkz508 BILI T 0.5 mg/dL 05/25/2016 Comp Metabolic Rwa407 ALBUMIN 4.3 g/dL 05/25/2016 Comp Metabolic Kte945 TPRO 6.9 g/dL 05/25/2016 Comp Metabolic Nmc923 GLOB 2.6 g/dL 05/25/2016 Comp Metabolic Xbo854 A/G Ratio 1.6 Ratio 05/25/2016 Comp Metabolic Rtt514 Osmo 278 mOsmo 05/25/2016 Lipid Ord30 CHOL 174 mg/dL 05/25/2016 Lipid Ord30 HDL 40.0 mg/dl 05/25/2016 Lipid Ord30 TRIG 399 mg/dL 05/25/2016 Lipid Ord30 LDL 54 mg/dL 05/25/2016 Lipid Ord30 C/HDL 4.4 Ratio 05/25/2016 Tsh Ord6 hTSH II 1.65 uIU/mL 05/25/2016 %Hba1C Cqg531 % HbA1c 40197-2 6.2 % 05/25/2016 %Hba1C Oiu422 Gluc Ave 131 mg/dL 05/25/2016 Free T4 Rec862 FREE T4 0.93 ng/dL 05/25/2016 Cbc With Differential Ord2 WBC 5.46 [...] 29.1 pg 05/25/2016 Cbc With Differential Ord2 Crosby% 6.4 % 05/25/2016 Cbc With Differential Ord2 MCHC 32.5 pg 05/25/2016 Cbc With Differential Ord2 Eos% 1.5 % 05/25/2016 Cbc With Differential Ord2 PLT 346 K/ul 05/25/2016 Cbc With Differential Ord2 Baso% 0.2 % 05/25/2016 Cbc With Differential Ord2 Neut ABS# 3.48 K/ul 05/25/2016 Cbc With Differential Ord2 RDW 13.5 % 05/25/2016 Cbc With Differential Ord2 Lymph ABS# 1.54 K/ul 05/25/2016 Cbc With Differential Ord2 Crosby ABS# 0.4 K/ul 05/25/2016 Cbc With Differential Ord2 Eos ABS# 0.1 K/ul 05/25/2016 Cbc With Differential Ord2 Baso ABS# 0.0 K/ul 05/25/2016 Metabolic Ord15 NA 141 mEq/L 01/08/2016 [...] 01/08/2016 Metabolic Ord15 CALCIUM 9.3 mg/dL 01/08/2016 Vitamin D 25 Oh [id number] VITAMIN D, 25 HYDROXY 51.91 ng/mL Tsh Ord6 hTSH II 1.22 uIU/mL 01/08/2016 Free T4 Abi002 FREE T4 0.91 ng/dL 06/07/2015 %Hba1C Sln905 % HbA1c 63876-5 6.2 % 06/07/2015 %Hba1C Zkg380 Gluc Ave 131 mg/dL 06/07/2015 Cbc With Differential Ord2 WBC 5.92 K/ul 06/07/2015 Cbc With Differential Ord2 RBC 4.36 M/ul 06/07/2015 Cbc With Differential Ord2 HGB 12.6 g/dl 06/07/2015 Cbc With Differential Ord2 HCT 38.9 % 06/07/2015 Cbc With Differential Ord2 Neut% 64.4 % 06/07/2015 Cbc With Differential Ord2 MCV 89.2 fl 06/07/2015 Cbc With Differential Ord2 Lymph% 27.5 % 06/07/2015 Cbc With Differential Ord2 Crosby% 6.6 % 06/07/2015 Cbc With Differential Ord2 MCH 28.9 pg 06/07/2015 Cbc With Differential Ord2 MCHC 32.4 pg 06/07/2015 Cbc With Differential Ord2 Eos% 1.2 % 06/07/2015 Cbc With Differential Ord2 PLT 342 K/ul 06/07/2015 Cbc With Differential Ord2 Baso% 0.3 % 06/07/2015 Cbc With Differential Ord2 Neut ABS# 3.81 K/ul 06/07/2015 Cbc With Differential Ord2 RDW 13.6 % 06/07/2015 Cbc With Differential Ord2 Lymph ABS# 1.63 K/ul 06/07/2015 Cbc With Differential Ord2 Crosby ABS# 0.4 K/ul 06/07/2015 Cbc With Differential Ord2 Eos ABS# 0.1 K/ul 06/07/2015 Cbc With Differential Ord2 Baso ABS# 0.0 K/ul 06/07/2015 Cbc With Differential Ord2 New Analyzer Notice Please note new ref ranges starting 04-10-2015 due to implemntation of new five part differential hematolgy analyzer. 06/07/2015 Tsh Ord6 hTSH II 2.13 uIU/mL 06/07/2015 Lipid Ord30 CHOL 190 mg/dL 06/07/2015 Lipid Ord30 HDL 41.0 mg/dl 06/07/2015 Lipid Ord30 TRIG 201 mg/dL 06/07/2015 Lipid Ord30 LDL 109 mg/dL 06/07/2015 Lipid Ord30 C/HDL 4.6 Ratio 06/07/2015 Comp Metabolic Koj400 NA 139 mEq/L 06/07/2015 Comp Metabolic Enf054 K 4.1 mEq/L 06/07/2015 Comp Metabolic Fph276 CL 102 mEq/L 06/07/2015 Comp Metabolic Gqe605 CO2 28.0 mEq/L 06/07/2015 Comp Metabolic Vmz659 ANION GAP 13 06/07/2015 Comp Metabolic Zey662 GLUCOSE 117 mg/dL 06/07/2015 Comp Metabolic Tsm094 Creat 0.6 mg/dL 06/07/2015 Comp Metabolic Ckd141 eGFR 114 ml/min/1.73m2 06/07/2015 Comp Metabolic Glx643 BUN 14 mg/dL 06/07/2015 Comp Metabolic Ehr318 B/C Ratio 25.0 Ratio 06/07/2015 Comp Metabolic Yjl430 CALCIUM 9.1 mg/dL 06/07/2015 Comp Metabolic Qfa777 ALK PHOS 59 U/L 06/07/2015 Comp Metabolic Qfa403 AST(SGOT) 12 U/L 06/07/2015 Comp Metabolic Wif943 ALT(SGPT) 12 U/L 06/07/2015 Comp Metabolic Eov567 BILI T 0.6 mg/dL 06/07/2015 Comp Metabolic Oor979 ALBUMIN 4.3 g/dL 06/07/2015 Comp Metabolic Vpp345 TPRO 6.9 g/dL 06/07/2015 Comp Metabolic Unm313 GLOB 2.6 g/dL 06/07/2015 Comp Metabolic Imt827 A/G Ratio 1.6 Ratio 06/07/2015 Comp Metabolic Udb048 Osmo 279 mOsmo 06/07/2015 LIPID GRP HDL TEST 41 MG/DL 07/12/2013 LIPID GRP TRIG 284 MG/DL 07/12/2013 LIPID GRP TEST LDL 55 MG/DL 07/12/2013 LIPID GRP 3304187 CHOL 153 MG/DL 07/12/2013 LIPID GRP RCHOL/HDL 3.73 RATIO 07/12/2013 A1C HPLC 3481109 A1C HPLC 19005-2 6.6 % 07/12/2013 GFR CALC 3013557 GFR AA >60 ML/MIN 07/12/2013 GFR CALC 1221144 GFR NON-AA >60 ML/MIN 07/12/2013 FREE T4 1351421 FREE T4 1.16 NG/DL 07/12/2013 CHEM 14 7018330 AST 15 U/L 07/12/2013 CHEM 14 0516910 ALT 17 IU/L 07/12/2013 CHEM 14 6067973 BUN 12 MG/DL 07/12/2013 CHEM 14 1302242 ALBUMIN 4.5 GM/DL 07/12/2013 CHEM 14 0094678 CHLORIDE 104 MMOL/L 07/12/2013 CHEM 14 0674301 BILI TOT 0.7 MG/DL 07/12/2013 CHEM 14 5530256 ALK PHOS 64 U/L 07/12/2013 CHEM 14 2630158 SODIUM 140 MMOL/L 07/12/2013 CHEM 14 6695307 CREATININE 0.66 MG/DL 07/12/2013 CHEM 14 5088119 CALCIUM 9.4 MG/DL 07/12/2013 CHEM 14 5302206 POTASSIUM 4.0 MMOL/L 07/12/2013 CHEM 14 3268583 PROT TOT 7.0 GM/DL 07/12/2013 CHEM 14 3983181 GLUCOSE 134 MG/DL 07/12/2013 CHEM 14 9745245 BICARB 27 MMOL/L 07/12/2013 CHEM 14 4040979 ANION GAP 9 MEQ/L 07/12/2013 TSH 4035495 TSH 3.116 uIU/ML 07/12/2013 CBC 8443280 WBC 7.2 10e9/L 07/12/2013 CBC 4378527 RBC 4.47 10e12/L 07/12/2013 CBC 9823482 HGB 12.9 g/dL 07/12/2013 CBC 8542898 HCT DET 39.6 % 07/12/2013 CBC 5720598 MCV 88.6 fL 07/12/2013 CBC 9802374 MCH 28.9 pg 07/12/2013 CBC 4875618 MCHC 32.6 g/dL 07/12/2013 CBC 2173193 PLT 332 10e9/L 07/12/2013 CBC 1108258 MPV 10.6 fL 07/12/2013 CBC 0478031 SATISH % 68.1 % 07/12/2013 CBC 7633177 LY % 22.3 % 07/12/2013 CBC 6853705 MON % 7.5 % 07/12/2013 CBC 1259456 EOS % 2.0 % 07/12/2013 CBC 6796458 BASO % 0.1 % 07/12/2013 CBC 5722235 RDW 13.5 % 07/12/2013 CBC 6431670 ABS SATISH 4.90 10e9/L 07/12/2013 CBC 8023932 ABS LYMPH 1.61 10e9/L 07/12/2013 CBC 5135500 ABS MONO 0.54 10e9/L 07/12/2013 CBC 2905779 ABS EOS 0.14 10e9/L 07/12/2013 CBC 6992525 ABS BASO 0.01 10e9/L 07/12/2013 CBC 1746053 RDW-SD 42.5 fL 07/12/2013 CA PTH 3497942 CA PTH 9.8 MG/DL 07/18/2012 INT IR PTH 3257389 PTH TEST 11 PG/ML 07/18/2012 TSH 5467087 TSH 3.804 uIU/ML 07/15/2012 LIPID GRP HDL TEST 40 MG/DL 04/22/2012 LIPID GRP TRIG 247 MG/DL 04/22/2012 LIPID GRP TEST LDL 59 MG/DL 04/22/2012 LIPID GRP CHOL 148 MG/DL 04/22/2012 LIPID GRP RCHOL/HDL 3.70 RATIO 04/22/2012 A1C HPLC 2403326 A1C HPLC 14867-6 5.6 % 04/22/2012 FREE T4 5767467 FREE T4 1.27 NG/DL 04/22/2012 GFR CALC 5152434 GFR AA >60 ML/MIN 04/22/2012 GFR CALC 2990415 GFR NON-AA >60 ML/MIN 04/22/2012 CBC 5037093 WBC 6.3 10e9/L 04/22/2012 CBC 2364662 RBC 4.45 10e12/L 04/22/2012 CBC 9585987 HGB 12.9 g/dL 04/22/2012 CBC 4007780 HCT DET 39.2 % 04/22/2012 CBC 9900141 MCV 88.1 fL 04/22/2012 CBC 4124929 MCH 29.0 pg 04/22/2012 CBC [id number] MCHC 32.9 g/dL 04/22/2012 CBC 8722695 PLT 341 10e9/L 04/22/2012 CBC 8322125 MPV 10.2 fL 04/22/2012 CBC 3925759 SATISH % 65.7 % 04/22/2012 CBC 7433706 LY % 25.0 % 04/22/2012 CBC 1325474 MON % 7.4 % 04/22/2012 CBC 8474338 EOS % 1.6 % 04/22/2012 CBC 6026577 BASO % 0.3 % 04/22/2012 CBC 9465690 RDW 13.5 % 04/22/2012 CBC 4429599 ABS SATISH 4.14 10e9/L 04/22/2012 CBC 5500689 ABS LYMPH 1.58 10e9/L 04/22/2012 CBC 9129842 ABS MONO 0.47 10e9/L 04/22/2012 CBC 0765678 ABS EOS 0.10 10e9/L 04/22/2012 CBC 8753159 ABS BASO 0.02 10e9/L 04/22/2012 CBC 7099666 RDW-SD 42.3 fL 04/22/2012 CHEM 14 2790066 AST 11 U/L 04/22/2012 CHEM 14 5149386 ALT 16 IU/L 04/22/2012 CHEM 14 0408397 BUN 14 MG/DL 04/22/2012 CHEM 14 5909847 ALBUMIN 4.7 GM/DL 04/22/2012 CHEM 14 9475504 CHLORIDE 103 MMOL/L 04/22/2012 CHEM 14 2311737 BILI TOT 0.6 MG/DL 04/22/2012 CHEM 14 9932481 ALK PHOS 69 U/L 04/22/2012 CHEM 14 2255668 SODIUM 140 MMOL/L 04/22/2012 CHEM 14 1598438 CREATININE 0.70 MG/DL 04/22/2012 CHEM 14 1302085 CALCIUM 9.6 MG/DL 04/22/2012 CHEM 14 5268617 POTASSIUM 4.1 MMOL/L 04/22/2012 CHEM 14 4290564 PROT TOT 7.0 GM/DL 04/22/2012 CHEM 14 1416276 GLUCOSE 120 MG/DL 04/22/2012 CHEM 14 6014719 BICARB 29 MMOL/L 04/22/2012 CHEM 14 2540547 ANION GAP 8 MEQ/L 04/22/2012 TSH 0802841 TSH 3.502 uIU/ML 04/22/2012 LIVER PNL 8239020 AST 14 U/L 11/24/2011 LIVER PNL 6401247 ALK PHOS 66 U/L 11/24/2011 LIVER PNL 1456856 BILI TOT 0.4 MG/DL 11/24/2011 LIVER PNL 0548046 ALT 18 IU/L 11/24/2011 LIVER PNL 6086854 BILI DIR 0.1 MG/DL 11/24/2011 LIVER PNL 7896466 ALBUMIN 4.5 GM/DL 11/24/2011 LIVER PNL 8688224 PROT TOT 6.8 GM/DL 11/24/2011 CBC 9809856 WBC 7.3 10e9/L 11/03/2011 CBC 2459393 RBC 4.49 10e12/L 11/03/2011 CBC 6186073 HGB 12.9 g/dL 11/03/2011 CBC 6920661 HCT DET 39.6 % 11/03/2011 CBC 1251031 MCV 88.2 fL 11/03/2011 CBC 8532612 MCH 28.7 pg 11/03/2011 CBC 7434781 MCHC 32.6 g/dL 11/03/2011 CBC 4962761 PLT 322 10e9/L 11/03/2011 CBC 9786564 MPV 9.9 fL 11/03/2011 CBC 3785800 SATISH % 71.0 % 11/03/2011 CBC 7162163 LY % 21.0 % 11/03/2011 CBC 2597271 MON % 6.3 % 11/03/2011 CBC 9168640 EOS % 1.4 % 11/03/2011 CBC 6694277 BASO % 0.3 % 11/03/2011 CBC 2708265 RDW 13.6 % 11/03/2011 CBC 1910516 ABS SATISH 5.18 10e9/L 11/03/2011 CBC 6768379 ABS LYMPH 1.53 10e9/L 11/03/2011 CBC 6365478 ABS MONO 0.46 10e9/L 11/03/2011 CBC 6226493 ABS EOS 0.10 10e9/L 11/03/2011 CBC 1290287 ABS BASO 0.02 10e9/L 11/03/2011 CBC 8074973 RDW-SD 42.9 fL 11/03/2011 TSH 6577770 TSH 4.385 uIU/ML 11/03/2011 GFR CALC 8077899 GFR AA >60 ML/MIN 11/03/2011 GFR CALC 8905229 GFR NON-AA >60 ML/MIN 11/03/2011 A1C HPLC 7219569 A1C HPLC 88397-0 6.3 % 11/03/2011 LIPID GRP HDL TEST 38 MG/DL 11/03/2011 LIPID GRP TRIG 291 MG/DL 11/03/2011 LIPID GRP TEST LDL 38 MG/DL 11/03/2011 LIPID GRP CHOL 134 MG/DL 11/03/2011 LIPID GRP RCHOL/HDL 3.53 RATIO 11/03/2011 CHEM 14 9258570 AST 15 U/L 11/03/2011 CHEM 14 8804972 ALT 18 IU/L 11/03/2011 CHEM 14 5151858 BUN 15 MG/DL 11/03/2011 CHEM 14 7455745 ALBUMIN 4.7 GM/DL 11/03/2011 CHEM 14 0344289 CHLORIDE 104 MMOL/L 11/03/2011 CHEM 14 1342377 BILI TOT 0.8 MG/DL 11/03/2011 CHEM 14 6113780 ALK PHOS 74 U/L 11/03/2011 CHEM 14 5476623 SODIUM 141 MMOL/L 11/03/2011 CHEM 14 9943819 CREATININE 0.68 MG/DL 11/03/2011 CHEM 14 1775497 CALCIUM 9.6 MG/DL 11/03/2011 CHEM 14 7045472 POTASSIUM 4.2 MMOL/L 11/03/2011 CHEM 14 0070546 PROT TOT 7.1 GM/DL 11/03/2011 CHEM 14 5565516 GLUCOSE 127 MG/DL 11/03/2011 CHEM 14 4611315 BICARB 27 MMOL/L 11/03/2011 CHEM 14 8791114 ANION GAP 10 MEQ/L 11/03/2011 Review of Systems System Result Effective [...] accomodation 10/10/2012 None Full Exam - General 1994 [...] clear 06/10/2012 None Full Exam - General 1995 Ears/Nose/Throat [...] tenderness 06/10/2012 None Full Exam - General 1994 [...] accomodation 04/26/2012 None Full Exam - General 1994 [...] benign 11/10/2011 None Full Exam - General 1994 Integument [...] distress 07/08/2011 None Full Exam - General 1994 [...] clear 06/03/2011 None Full Exam - General 1995 Ears/Nose/Throat oral cavity/pharynx/larynx Overall: oropharyngeal mucosa clear 06/03/2011 None Full Exam - General 1994 Eyes pupils and irises Overall: pupils equal, round, reactive to light and accomodation 06/03/2011 None Full Exam - General 1995 Musculoskeletal [...] affect 06/03/2011 None Full Exam - General 1994 [...] accomodation 05/06/2011 None Full Exam - General 1995 [...] G0439 07/04/2015 ADMIN PNEUMOCOCCAL VACCINE SNOMED CT: 84765234 CPT-4: G0009 07/12/2013 Pneumococcal Polysaccharide Vaccine, 23-Valent, Ad CPT-4: 86605 07/12/2013 ROUTINE VENIPUNCTURE CPT-4: 81389 07/12/2013 ROUTINE VENIPUNCTURE CPT-4: 58260 07/15/2012 ROUTINE VENIPUNCTURE CPT-4: 66217 04/22/2012 ROUTINE VENIPUNCTURE CPT-4: 19237 11/24/2011 ROUTINE VENIPUNCTURE CPT-4: 87544 11/03/2011 TRIAMCINOLONE ACET INJ NOS CPT-4: J3301 07/14/2011 ROUTINE VENIPUNCTURE CPT-4: 40260 06/03/2011 Vital Signs Date Vital 03/02/2017 Blood Pressure 1: 132/74 Code : 8480-6 BMI: 38.6 Code : 08187-3 Heart Rate 1 : 71 bpm Height: 4'12" SpO2: 99% Weight: 195 lbs 07/16/2016 Blood Pressure 1: 110/52 Code : 8480-6 BMI: 38.0 Code : 00373-7 Heart Rate 1 : 68 bpm Height: 4'12" SpO2: 96% Waist Measure (cm): 99 cm Weight: 192 lbs 06/22/2016 Blood Pressure 1: 130/60 Code : 8480-6 BMI: 38.6 Code : 64288-1 Heart Rate 1 : 72 bpm Height: 4'12" SpO2: 96% Weight: 195 lbs 06/04/2016 Blood Pressure 1: 130/68 Code : 8480-6 BMI: 38.4 Code : 93826-1 Heart Rate 1 : 82 bpm Height: 4'12" SpO2: 98% Weight: 194 lbs 05/28/2016 Blood Pressure 1: 178/74 Code : 8480-6 Heart Rate 1: 103 bpm SpO2: 97% 05/25/2016 Blood Pressure 1: 142/60 Code : 8480-6 BMI: 38.4 Code : 45936-7 Heart Rate 1 : 77 bpm Height: 4'12" SpO2: 97% Weight: 194 lbs 07/04/2015 Blood Pressure 1: 140/62 Code : 8480-6 BMI: 38.4 Code : 78189-5 Heart Rate 1 : 70 bpm Height: 4'12" SpO2: 97% Waist Measure (cm): 107 cm Weight: 194 lbs 06/07/2015 Blood Pressure 1: 140/80 Code : 8480-6 BMI: 38.2 Code : 45164-0 Heart Rate 1 : 77 bpm Height: 4'12" SpO2: 97% Weight: 193 lbs 11/05/2014 Blood Pressure 1: 148/62 Code : 8480-6 BMI: 37.2 Code : 53595-3 Heart Rate 1 : 75 bpm Height: 4'12" SpO2: 96% Weight: 188 lbs 07/17/2014 Blood Pressure 1: 118/76 Code : 8480-6 BMI: 38.6 Code : 45642-8 Heart Rate 1 : 74 bpm Height: 4'12" SpO2: 97% Weight: 195 lbs 04/20/2014 Blood Pressure 1: 122/74 Code : 8480-6 BMI: 39.8 Code : 23913-7 Heart Rate 1 : 72 bpm Height: 4'12" Weight: 201 lbs 07/12/2013 Blood Pressure 1: 118/60 Code : 8480-6 BMI: 40.0 Code : 16546-9 Heart Rate 1 : 67 bpm Height: 4'12" SpO2: 95% Temperature: 36.2 (C) / 97.1 (F) Weight: 202 lbs 10/10/2012 Blood Pressure 1: 138/72 Code : 8480-6 BMI: 38.6 Code : 21319-4 Heart Rate 1 : 72 bpm Height: 5' Weight: 197 lbs 8 oz 06/10/2012 Blood Pressure 1: 150/74 Code : 8480-6 BMI: 38.7 Code : 54647-2 Heart Rate 1 : 72 bpm Height: 5' Weight: 198 lbs 04/26/2012 Blood Pressure 1: 128/74 Code : 8480-6 BMI: 38.7 Code : 62494-4 Heart Rate 1 : 78 bpm Height: 5' Weight: 198 lbs 03/08/2012 Blood Pressure 1: 134/68 Code : 8480-6 BMI: 38.9 Code : 42835-8 Heart Rate 1 : 72 bpm Height: 5' Weight: 199 lbs 5 oz 11/10/2011 Blood Pressure 1: 132/72 Code : 8480-6 BMI: 39.3 Code : 71177-6 Heart Rate 1 : 78 bpm Height: 5' Respiratory Rate: 18 bpm Weight: 201 lbs 07/14/2011 Blood Pressure 1: 128/52 Code : 8480-6 Heart Rate 1: 76 bpm Respiratory Rate : 20 bpm Temperature: 36.7 (C) / 98.1 (F) 07/08/2011 Blood Pressure 1: 132/62 Code : 8480-6 BMI: 39.5 Code : 60291-7 Heart Rate 1 : 66 bpm Height: 5' Respiratory Rate: 16 bpm Weight: 202 lbs 06/03/2011 Blood Pressure 1: 140/64 Code : 8480-6 BMI: 40.0 Code : 99933-1 Heart Rate 1 : 72 bpm Height: 5' Respiratory Rate: 16 bpm Weight: 205 lbs 05/06/2011 Blood Pressure 1: 122/62 Code : 8480-6 BMI: 40.3 Code : 21990-5 Heart Rate 1 : 76 bpm Height: 5' Respiratory Rate: 16 bpm Weight: 206 lbs 8 oz 03/04/2011 Blood Pressure 1: 160/76 Code : 8480-6 BMI: 40.5 Code : 01286-7 Heart Rate 1 : 76 bpm Height: 4'12" Respiratory Rate: 16 bpm Weight: 204 lbs 02/11/2011 Blood Pressure 1: 152/72 Code : 8480-6 BMI: 39.8 Code : 28266-1 Heart Rate 1 : 80 bpm Height: 5' Respiratory Rate: 16 bpm Weight: 204 lbs 01/07/2011 Blood Pressure 1: 138/72 Code : 8480-6 BMI: 39.5 Code : 54453-4 Heart Rate 1 : 64 bpm Height: [...] mellitus Exercise moderate exercise 10/10/2012 aquasize at [facility] Weight follow up Location diffusely 06/10/2012 patient [...] data Encounters Encounter Performer Location Codes Date ) 58151 EST. PATIENT, LEVEL IV Diagnosis: Type 2 diabetes mellitus with hyperglycemia[ICD10: E11.65] Diagnosis: Hypothyroidism, unspecified[ICD10: E03.9] Diagnosis: Essential (primary) hypertension[ICD10: I10] Diagnosis: Mixed hyperlipidemia[ICD10: E78.2] Rosa Mooney MD, [facility] CPT-4: 34131 03/02/2017 ([id number]) 24933 EST. PATIENT, LEVEL IV Diagnosis: Type 2 diabetes mellitus with hyperglycemia[ICD10: E11.65] Diagnosis: Essential (primary) hypertension[ICD10: I10] Diagnosis: Mixed hyperlipidemia[ICD10: E78.2] Katherine Mooney MD, [facility] CPT-4: 64988 06/22/2016 ([id number]) 65721 EST. PATIENT, LEVEL III Diagnosis: Essential (primary) hypertension[ICD10: I10] Diagnosis: Cough[ICD10: R05] Rosa Mooney MD, [facility] CPT-4: 04892 06/04/2016 ([id number]) Miscellaneous no charge Diagnosis: Essential (primary) hypertension[ICD10: I10] Katherine Mooney MD, [facility] CPT-4: 18711 05/28/2016 ([id number]) 99403 EST. PATIENT, LEVEL IV Diagnosis: Essential (primary) hypertension[ICD10: I10] Diagnosis: Mixed hyperlipidemia[ICD10: E78.2] Katherine Mooney MD, [facility] CPT-4: 02498 05/25/2016 ([id number]) 82924 EST. PATIENT, LEVEL IV Diagnosis: Type 2 diabetes mellitus with hyperglycemia[ICD10: E11.65] Diagnosis: Essential (primary) hypertension[ICD10: I10] Diagnosis: Body mass index (BMI) 38.0-38.9, adult[ICD10: Z68.38] Diagnosis: Mixed hyperlipidemia[ICD10: E78.2] Diagnosis: Hypothyroidism, unspecified[ICD10: E03.9] Diagnosis: Primary hyperparathyroidism[ICD10: E21.0] Rosa Mooney MD, [facility] CPT-4: 42368 06/07/2015 ([id number]) 46655 EST. PATIENT, LEVEL III Diagnosis: Paronychia of finger of left hand[ICD9: 681.02] Diagnosis: Depression[ICD9: 311] Rosa Mooney MD, [facility] CPT-4: 86150 11/05/2014 ([id number]) 55776 EST. PATIENT, LEVEL IV Diagnosis: ESSENTIAL HYPERTENSION[ICD9: 401.9] Diagnosis: DIABETES TYPE II[ICD9: 250.00] Katherine Mooney MD, [facility] CPT- 4: 07862 07/17/2014 ([id number]) 83125 EST. PATIENT, LEVEL IV Diagnosis: Diabetes mellitus type 2, uncontrolled[ICD9: 250.02] Diagnosis: Hypothyroidism[ICD9: 244.9] Diagnosis: Elevated lipids[ICD9: 272.4] Diagnosis: ESSENTIAL HYPERTENSION[ICD9: 401.9] Diagnosis: Asthma[ICD9: 493.90] Katherine Mooney MD, [facility] CPT-4: 88619 04/20/2014 ([id number]) 18968 EST. PATIENT, LEVEL III Diagnosis: DM W/O COMPLICATION TYPE II, UNCONTROLLED[SNOMED: 81438534] Katherine Mooney MD , [facility] CPT-4: 64768 10/10/2012 ([id number]) 07329 EST. PATIENT, LEVEL III Diagnosis: ESSENTIAL HYPERTENSION[SNOMED: 80739649] Diagnosis: DM W/O COMPLICATION TYPE II, UNCONTROLLED[SNOMED: 23983286] Diagnosis: OBESITY[ICD9: 278.00] Katherine Mooney MD, [facility] CPT-4: 24013 06/10/2012 ([id number]) 21962 EST. PATIENT, LEVEL IV Diagnosis: ESSENTIAL HYPERTENSION[SNOMED: 14221844] Diagnosis: DIABETES TYPE II[SNOMED: 469964193] Diagnosis: OBESITY[ICD9: 278.00] Diagnosis: HYPERLIPIDEMIA[ICD9: 272.4] Katherine Mooney MD, [facility] CPT- 4: 46890 04/26/2012 [id number] 01939 EST. PATIENT, LEVEL IV Diagnosis: ESSENTIAL HYPERTENSION[SNOMED: 39541530] Diagnosis: DIABETES TYPE II[SNOMED: 164466811] Katherine Mooney MD, [facility] CPT-4: 67338 03/08/2012 ([id number]) 75388 EST. PATIENT, LEVEL IV Diagnosis: Diabetes mellitus type 2, uncontrolled[SNOMED: 23943490] Diagnosis: ESSENTIAL HYPERTENSION[SNOMED: 53456152] Diagnosis: HYPERLIPIDEMIA[ICD9: 272.4] Katherine Mooney MD [facility] CPT- 4: 51777 11/10/2011 ([id number]) 95867 EST. PATIENT, LEVEL III Diagnosis: Tick bite[ICD9: 919.4] Diagnosis: Itching[ICD9: 698.9] Katherine Mooney MD [facility] CPT-4: 22154 07/14/2011 ([id number]) 23236 EST. PATIENT, LEVEL IV Diagnosis: ESSENTIAL HYPERTENSION[SNOMED: 74450081] Diagnosis: DIABETES TYPE II[SNOMED: 063265666] Katherine Mooney MD, [facility] CPT-4: 32993 07/08/2011 ([id number]) 27075 EST. PATIENT, LEVEL IV Diagnosis: ESSENTIAL HYPERTENSION[SNOMED: 38593333] Diagnosis: DIABETES TYPE II[SNOMED: 308792270] Diagnosis: OBESITY[ICD9: 278.00] Diagnosis: Osteoporosis[ICD9: 733.00] Diagnosis: Bone pain[ICD9: 733.90] Katherine Mooney MD, [facility] CPT-4: 41112 06/03/2011 [id number]) 42506 EST. 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 PATIENT, LEVEL III Diagnosis: ESSENTIAL HYPERTENSION[SNOMED: 47146018] [facility] CPT-4: 12811 03/04/2011 58737 EST. PATIENT, LEVEL IV Diagnosis: ESSENTIAL HYPERTENSION[SNOMED: 06014408] Diagnosis: DIABETES TYPE II[SNOMED: 094125180] [facility] CPT-4: 44985 02/11/2011 42348 EST. 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 I have recommended for the patient to have follow up labs prior to the next office visit. The patient has been instructed to continue with current medications as previously directed, continue with regular FSBS monitoring to assure continued control of diabetes. Pt to call for any acute concerns, complaints, or if the blood glucose readings are starting to become less controlled. Hypertension - well controlled - continue with current medications, continue with no added salt diet. Pt has been encouraged to exercise daily. The pt has been advised to call the office if there are any acute concerns about change in blood pressure readings at home. Hyperlipidemia - pt has been counseled about appropriate diet, exercise, and need for low fat food choices. I have discussed the need for the patient to take medications as prescribed. If the patient has negative side effects from the medication, they are to CALL the office and not abruptly discontinue the medication without discussion with a practitioner in the office. We will check labs in 3-6 months for follow up on the patient's chronic medical problem and to assure normal liver response to medications. Hypothyroidism - pt with chronic hypothyroidism, continue with current medication, will monitor pt to signs or symptoms of lack of adequate supplementation. Pt is to continue with current dose of medication unless directed otherwise. Check labs at regular intervals wither q 3 months or q 6 months based on previous levels of control. 03/02/2017 Patient Education: Patient Medication Summary Completed 03/02/2017 Patient Education: Obesity Completed 03/02/2017 Appointment: [facility] [phone] [facility] (30 min) Complex 02/23/2017 Visit Plan: Medicare Exam - today we discussed the patients past history, immunizations, preventative exams/evaluations - colonoscopy, fecal occult blood testing, routine labs for renal function, glucose, cholesterol, osteoporosis evaluations, cardiovascular testing and cancer screenings. We have also discussed mental health and the signs/symptoms of depression. The patient was advised of home safety evaluations and the need to make sure that as the aging process continues, we need to be aware of different ways to make the home a safer place to reside. The patient has also been counseled that exercise is necessary - and of utmost importance as we age to help decrease fall risk and to maintain independece in the home. Today we discussed the need for the patient to create paperwork for Advanced directives as well as for the patient to provide this office with a copy of her DOPA paperwork for health care surrogate. 07/16/2016 Patient Education: Patient Medication Summary Completed 07/16/2016 Appointment: [facility] [phone] [facility] [place] [facility] - Annual Wellness Visit 07/09/2016 Visit Plan: Hypertension - well controlled - continue with current medications, continue with no added salt diet. Pt has been encouraged to exercise daily. The pt has been advised to call the office if there are any acute concerns about change in blood pressure readings at home. Diabetes Mellitus - controlled - per recent FSBS reports. I have recommended for the patient to have follow up labs prior to the next office visit. The patient has been instructed to continue with current medications as previously directed, continue with regular FSBS monitoring to assure continued control of diabetes. Pt to call for any acute concerns, complaints, or if the blood glucose readings are starting to become less controlled. Hyperlipidemia - pt has been counseled about appropriate diet, exercise, and need for low fat food choices. I have discussed the need for the patient to take medications as prescribed. If the patient has negative side effects from the medication, they are to CALL the office and not abruptly discontinue the medication without discussion with a practitioner in the office. We will check labs in 3-6 months for follow up on the patient's chronic medical problem and to assure normal liver response to medications. 06/22/2016 Appointment: Katherine Mooney WPtel: [phone] [facility] (15 min) Moderate 06/22/2016 Patient Education: Patient Medication Summary Completed 06/22/2016 Patient Education: Obesity Completed 06/22/2016 Appointment: Katherine Mooney WPtel: [facility] (15 min) Moderate 06/10/2016 Visit Plan: Hypertension - well controlled - continue with current medications, continue with no added salt diet. Pt has been encouraged to exercise daily. The pt has been advised to call the office if there are any acute concerns about change in blood pressure readings at home. Cough-improved today-discussed with Dr Mooney-monitor symptoms over the next week-if cough persists, will trial off lisinopril -instructed patient to call if the cough persists, gets any worse, or new symptoms develop. Patient verbalized understanding of plan. 06/04/2016 Appointment: Rosa [facility] [phone] [facility] [phone] [place] (30 min) Complex 06/04/2016 Patient Education: Patient Medication Summary Completed 06/04/2016 Patient Education: Obesity Completed 06/04/2016 Appointment: Nurse Visit 05/28/2016 Referral: Suni Whitman Patient informed. Referral info faxed. Completed 04/2016 Patient Education: Patient Medication Summary Completed 05/28/2016 Visit Plan: Hypertension - uncontrolled - the patient's medications have been modified as documented in the visit note. The patient has been counseled to cut back on salt in diet for a no added salt diet, low fat diet, start an exercise program with low weight bearing exercises and higher aerobic activity for heart health. The patient is to check blood pressure readings as an outpatient and either fax, call, or email the readings to the office next week for practitioner to review. The pt is to call for acute concerns. Hyperlipidemia - pt has been counseled about appropriate diet, exercise, and need for low fat food choices. I have discussed the need for the patient to take medications as prescribed. If the patient has negative side effects from the medication, they are to CALL the office and not abruptly discontinue the medication without discussion with a practitioner in the office. We will check labs in 3-6 months for follow up on the patient's chronic medical problem and to assure normal liver response to medications. 05/25/2016 Appointment: [facility] [phone] [facility] (15 min) Moderate 05/25/2016 Patient Education: Patient Medication Summary Completed 05/25/2016 Patient Education: Obesity Completed 05/25/2016 Care Plan: Referral Order SNOMED-CT : 719203288 Pending 05/25/2016 Visit Plan: Medicare Exam - today we discussed the patients past history, immunizations, preventative exams/evaluations - colonoscopy, fecal occult blood testing, routine labs for renal function, glucose, cholesterol, osteoporosis evaluations, cardiovascular testing and cancer screenings. We have also discussed mental health and the signs/symptoms of depression. The patient was advised of home safety evaluations and the need to make sure that as the aging process continues, we need to be aware of different ways to make the home a safer place to reside. The patient has also been counseled that exercise is necessary - and of utmost importance as we age to help decrease fall risk and to maintain independece in the home. Today we discussed the need for the patient to create paperwork for Advanced directives as well as for the patient to provide this office with a copy of her DOPA paperwork for health care surrogate. BMI 38 - The pt has been counseled about diet changes, calorie restriction, and need to exercise. Pt will RTC for weight check. 07/04/2015 Appointment: [facility] - Annual Wellness Visit 07/04/2015 Patient Education: Patient Medication Summary Completed 07/04/2015 Patient Education: Obesity Completed 07/04/2015 Care Plan: BMI Above normal followup SELF-MGMT EDUC & TRAIN 1 PT Ordered 2015 Visit Plan: Diabetes Mellitus - controlled - per recent FSBS reports. I have recommended for the patient to have follow up labs prior to the next office visit. The patient has been instructed to continue with current medications as previously directed, continue with regular FSBS monitoring to assure continued control of diabetes. Pt to call for any acute concerns, complaints, or if the blood glucose readings are starting to become less controlled. Hypertension - well controlled - continue with current medications, continue with no added salt diet. Pt has been encouraged to exercise daily. The pt has been advised to call the office if there are any acute concerns about change in blood pressure readings at home. Hypothyroidism - pt with chronic hypothyroidism, continue with current medication, will monitor pt to signs or symptoms of lack of adequate supplementation. Pt is to continue with current dose of medication unless directed otherwise. Check labs at regular intervals wither q 3 months or q 6 months based on previous levels of control. Hyperlipidemia - pt has been counseled about appropriate diet, exercise, and need for low fat food choices. I have discussed the need for the patient to take medications as prescribed. If the patient has negative side effects from the medication, they are to CALL the office and not abruptly discontinue the medication without discussion with a practitioner in the office. We will check labs in 3-6 months for follow up on the patient's chronic medical problem and to assure normal liver response to medications. Obesity - chronic issue with this patient. The pt has been counseled about diet changes, calorie restriction, and need to exercise. Pt will RTC in one month for weight check. Hyperparathryoidism-check labs 06/07/2015 Patient Education: Patient Medication Summary Completed 06/07/2015 Patient Education: Obesity Completed 06/07/2015 Patient Education: Hypertension Completed 06/07/2015 Care Plan: BMI Above normal followup SELF-MGMT EDUC & TRAIN 1 PT Ordered 2015 Visit Plan: Cellulitis - continue with oral antibiotics as previously directed, return to clinic as previously directed, call for acute change in symptoms, worsening redness, warmth, discharge. Continue bactroban- call if symptoms do not resolve and we can do another round of abx. 11/05/2014 Appointment: (15 min) Moderate 11/05/2014 Patient Education: Patient Medication Summary Completed 11/05/2014 Visit Plan: Hypertension - well controlled - continue with current medications, continue with no added salt diet. Pt has been encouraged to exercise daily. The pt has been advised to call the office if there are any acute concerns about change in blood pressure readings at home. Diabetes Mellitus - controlled - per recent FSBS reports. I have recommended for the patient to have follow up labs prior to the next office visit. The patient has been instructed to continue with current medications as previously directed, continue with regular FSBS monitoring to assure continued control of diabetes. Pt to call for any acute concerns, complaints, or if the blood glucose readings are starting to become less controlled. 07/17/2014 Appointment: Katherine Mooney WPtel: [address] [facility] Follow up 07/17/2014 Patient Education: Patient Medication Summary Completed 07/17/2014 Patient Education: Hypertension Completed 07/17/2014 Visit Plan: Diabetes Mellitus - controlled - per recent FSBS reports. I have recommended for the patient to have follow up labs prior to the next office visit. The patient has been instructed to continue with current medications as previously directed, continue with regular FSBS monitoring to assure continued control of diabetes. Pt to call for any acute concerns, complaints, or if the blood glucose readings are starting to become less controlled. Hypertension - well controlled - continue with current medications, continue with no added salt diet. Pt has been encouraged to exercise daily. The pt has been advised to call the office if there are any acute concerns about change in blood pressure readings at home. Asthma - chronic problem for this patient. We have reviewed chronic treatment strategy, symptom control, and plans for acute exacerbations. No changes today to the current treatment plan as the patient is stable, monitor for acute changes Hyperlipidemia - pt has been counseled about appropriate diet, exercise, and need for low fat food choices. I have discussed the need for the patient to take medications as prescribed. If the patient has negative side effects from the medication, they are to CALL the office and not abruptly discontinue the medication without discussion with a practitioner in the office. We will check labs in 3-6 months for follow up on the patient's chronic medical problem and to assure normal liver response to medications. Hypothyroidism - pt with chronic hypothyroidism, continue with current medication, will monitor pt to signs or symptoms of lack of adequate supplementation. Pt is to continue with current dose of medication unless directed otherwise. Check labs at regular intervals wither q 3 months or q 6 months based on previous levels of control. 04/20/2014 Appointment: [facility] Follow [facility] 04/20/2014 Patient Education: Patient Medication Summary Completed 04/20/2014 Patient Education: Hypertension Completed 04/20/2014 Appointment: Katherine Mo[facility]el[facility] Lab Draw 07/12/2013 Appointment: Katherine Mooney WPtel: [address] [place], [place] [id number] [facility] - Initial Preventive Physical Exam 07/12/2013 Patient Education: Patient Medication Summary Completed 07/12/2013 Patient Education: Hypertension Completed 07/12/2013 Patient Education: Patient Medication Summary Completed 07/12/2013 Appointment: Katherine Mooney WPtel: [address] [place], [place] [id number] Follow up 05/04/2013 Appointment: Katherine Mooney WPtel: [address] [place], [place] [id number] Follow up 04/17/2013 Visit Plan: Diabetes Mellitus - Uncontrolled - per recent FSBS reports. I have recommended for the patient to have follow up labs prior to the next office visit. The patient has been instructed to continue with current medications as previously directed, continue with regular FSBS monitoring to assure continued control of diabetes. Pt to call for any acute concerns, complaints, or if the blood glucose readings are starting to become less controlled. I have recommended for the patient to follow more strictly to the diabetic diet as discussed in clinic to allow for greater blood glucose control. 10/10/2012 Appointment: Kahterine Mooney WPtel[facility] Follow up 10/10/2012 Patient Education: Patient Medication Summary Completed 10/10/2012 Appointment: Rosa Barry WPtel: [address] [place], [place] [id number] [place] Lab Draw 07/15/2012 Patient Education: Patient Medication Summary Completed 07/15/2012 Visit Plan: Hypertension - elevated today-call with readings in 2 weeks. The patient has been counseled to cut back on salt in diet for a no added salt diet, low fat diet, start an exercise program with low weight bearing exercises and higher aerobic activity for heart health. The patient is to check blood pressure readings as an outpatient and either fax, call, or email the readings to the office next week for practicioner to review. The pt is to call for acute concerns. Obesity - chronic issue with this patient. The pt has been counseled about diet changes, calorie restriction, and need to exercise. Pt will RTC in one month for weight check. 06/10/2012 Appointment: [phone] Follow up 06/10/2012 Patient Education: Patient Medication Summary Completed 06/10/2012 Patient Education: Hypertension Completed 06/10/2012 Appointment: Katherine [facility]el[facility] [facility] Follow up 05/31/2012 Visit Plan: Hypertension - well controlled - continue with current medications, continue with no added salt diet. Pt has been encouraged to exercise daily. The pt has been advised to call the office if there are any acute concerns about change in blood pressure readings at home. Diabetes Mellitus - controlled - per recent FSBS reports. I have recommended for the patient to have follow up labs prior to the next office visit. The patient has been instructed to continue with current medications as previously directed, continue with regular FSBS monitoring to assure continued control of diabetes. Pt to call for any acute concerns, complaints, or if the blood glucose readings are starting to become less controlled. Hyperlipidemia - pt has been counseled about appropriate diet, exercise, and need for low fat food choices. I have discussed the need for the patient to take medications as prescribed. If the patient has negative side effects from the medication, they are to CALL the office and not abruptly discontinue the medication without discussion with a practicioner in the office. We will check labs in 3-6 months for follow up on the patient's chronic medical problem and to assure normal liver response to medications. Obesity - chronic issue with this patient. The pt has been counseled about diet changes, calorie restriction, and need to exercise. Pt will RTC in one month for weight check. 04/26/2012 Appointment: Katherine Mo[facility]el[facility] Follow up 04/26/2012 Patient Education: Patient Medication Summary Completed 04/26/2012 Patient Education: Hypertension Completed 04/26/2012 Appointment: Katherine [facility]el[facility] Lab Draw 04/22/2012 Patient Education: Patient Medication Summary Completed 04/22/2012 Patient Education: Hypertension Completed 04/22/2012 Visit Plan: Hypertension - well controlled - continue with current medications, continue with no added salt diet. Pt has been encouraged to exercise daily. The pt has been advised to call the office if there are any acute concerns about change in blood pressure readings at home. Diabetes Mellitus - controlled - per recent FSBS reports. I have recommended for the patient to have follow up labs prior to the next office visit. The patient has been instructed to continue with current medications as previously directed, continue with regular FSBS monitoring to assure continued control of diabetes. Pt to call for any acute concerns, complaints, or if the blood glucose readings are starting to become less controlled. 03/08/2012 Appointment: Katherine Mooney [facility]Ptel[facility] [facility] Established Patient Preventative visit 03/08/2012 Patient Education: Patient Medication Summary Completed 03/08/2012 Patient Education: Hypertension Completed 03/08/2012 Appointment: Roas Barry [facility]el[phone] [place] Injection 12/09/2011 Patient Education: Patient Medication Summary Completed 11/24/2011 Visit Plan: Diabetes Mellitus - Uncontrolled - per recent FSBS reports. I have recommended for the patient to have follow up labs prior to the next office visit. The patient has been instructed to continue with current medications as previously directed, continue with regular FSBS monitoring to assure continued control of diabetes. Pt to call for any acute concerns, complaints, or if the blood glucose readings are starting to become less controlled. I have recommended for the patient to follow more strictly to the diabetic diet as discussed in clinic to allow for greater blood glucose control. CHANGE THE METFORMIN DOSE TO 500 mg 1/2 pill in the morning, noon, and a full pill at bedtime. Hypertension - well controlled - continue with current medications, continue with no added salt diet. Pt has been encouraged to exercise daily. The pt has been advised to call the office if there are any acute concerns about change in blood pressure readings at home. Hyperlipidemia - pt has been counseled about appropriate diet, exercise, and need for low fat food choices. I have discussed the need for the patient to take medications as prescribed. If the patient has negative side effects from the medication, they are to CALL the office and not abruptly discontinue the medication without discussion with a practicioner in the office. We will check labs in 3-6 months for follow up on the patient's chronic medical problem and to assure normal liver response to medications. 11/10/2011 Appointment: Katherine Mooney WPtel: [facility] [place] [id number] Follow up 11/10/2011 Patient Education: Patient Medication Summary Completed 11/10/2011 Patient Education: High Blood Pressure: Essential Hypertension Completed 2011 Patient Education: Patient Medication Summary Completed 11/03/2011 Patient Education: High Blood Pressure: Essential Hypertension Completed 2011 Visit Plan: Tick Bite - pt given script for treatment of infected tick bite, call for symptoms of worsening infection or nonhealing. RX for doxycycline x 10 days Allergic reaction - significant erythema surrounding the bite site, pt given kenalog 40mg IM x 1 today. 07/14/2011 Appointment: Katherine Mooney WPtel: [facility] [place] Other 07/14/2011 Patient Education: Patient Medication Summary Completed 07/14/2011 Visit Plan: Diabetes Mellitus - controlled - per recent FSBS reports. I have recommended for the patient to have follow up labs prior to the next office visit. The patient has been instructed to continue with current medications as previously directed, continue with regular FSBS monitoring to assure continued control of diabetes. Pt to call for any acute concerns, complaints, or if the blood glucose readings are starting to become less controlled. Hypertension - well controlled - continue with current medications, continue with no added salt diet. Pt has been encouraged to exercise daily. The pt has been advised to call the office if there are any acute concerns about change in blood pressure readings at home. 07/08/2011 Appointment: Katherine Mooney WPtel: [facility] Other 07/08/2011 Patient Education: Patient Medication Summary Completed 07/08/2011 Patient Education: High Blood Pressure: Essential Hypertension Completed 2011 Appointment: Katherine Mooney WPtel: [address] [facility] Other 07/01/2011 Visit Plan: Bone aches- chec vitamin d, continue with atelvia Diabetes Mellitus - controlled - per recent FSBS reports. I have recommended for the patient to have follow up labs prior to the next office visit. The patient has been instructed to continue with current medications as previously directed, continue with regular FSBS monitoring to assure continued control of diabetes. Pt to call for any acute concerns, complaints, or if the blood glucose readings are starting to become less controlled. Hypertension - well controlled - continue with current medications, continue with no added salt diet. Pt has been encouraged to exercise daily. The pt has been advised to call the office if there are any acute concerns about change in blood pressure readings at home. 06/03/2011 Appointment: Katherine Mooney WPtel: [address] Other 06/03/2011 Patient Education: Patient Medication Summary Completed 06/03/2011 Patient Education: High Blood Pressure: Essential Hypertension Completed 2011 Visit Plan: Diabetes Mellitus - controlled - per recent FSBS reports. I have recommended for the patient to have follow up labs prior to the next office visit. The patient has been instructed to continue with current medications as previously directed, continue with regular FSBS monitoring to assure continued control of diabetes. Pt to call for any acute concerns, complaints, or if the blood glucose readings are starting to become less controlled. Hypertension - well controlled - continue with current medications, continue with no added salt diet. Pt has been encouraged to exercise daily. The pt has been advised to call the office if there are any acute concerns about change in blood pressure readings at home. Obesity - chronic issue with this patient. The pt has been counseled about diet changes, calorie restriction, and need to exercise. Pt will RTC in one month for weight check. 05/06/2011 Appointment: Katherine Mooney WPtel: [address] [facility] Other 05/06/2011 Patient Education: Patient Medication Summary Completed 05/06/2011 Patient Education: High Blood Pressure: Essential Hypertension Completed 2011 Patient Education: .Amazing charts Diabetic meal planning guide Completed 05/06 Appointment: Katherine Mooney WPtel: [address] [place], [place] [id number] Other 03/18/2011 Visit Plan: Hypertension - uncontrolled - the patient has been counseled to cut back on salt in diet for a no added salt diet, low fat diet, start an exercise program with low weight bearing exercises and higher aerobic activity for heart health. The patient is to check blood pressure readings as an outpatient and either fax, call, or email the readings to the office next week for practicioner to review. The pt is to call for acute concerns. 03/04/2011 Appointment: Katherine Mooney WPtel: [address] [place], [place] [id number] Other 03/04/2011 Patient Education: Patient Medication Summary Completed 03/04/2011 Patient Education: High Blood Pressure: Essential Hypertension Completed 2010 Appointment: Katherine Mooney WPtel: [address] [place], [place] [id number] Follow up 02/18/2011 Visit Plan: Hypertension - uncontrolled - the patient's medications have been modified as documented in the visit note. The patient has been counseled to cut back on salt in diet for a no added salt diet, low fat diet, start an exercise program with low weight bearing exercises and higher aerobic activity for heart health. The patient is to check blood pressure readings as an outpatient and either fax, call, or email the readings to the office next week for practicioner to review. The pt is to call for acute concerns. Diabetes Mellitus - controlled - per recent FSBS reports. I have recommended for the patient to have follow up labs prior to the next office visit. The patient has been instructed to continue with current medications as previously directed, continue with regular FSBS monitoring to assure continued control of diabetes. Pt to call for any acute concerns, complaints, or if the blood glucose readings are starting to become less controlled. 02/11/2011 Appointment: Rosa Barry [facility]Ptel: [phone] Follow up 02/11/2011 Appointment: Katherine Mooney WPtel: [address] [place] [id number] Other 02/11/2011 Patient Education: Patient Medication Summary Completed 02/11/2011 Patient Education: High Blood Pressure: Essential Hypertension Completed 2010 Appointment: Katherine Mooney WPtel: [address] [place], [place] [id number] Other 01/08/2011 Visit Plan: Hypertension - well controlled - continue with current medications, continue with no added salt diet. Pt has been encouraged to exercise daily. The pt has been advised to call the office if there are any acute concerns about change in blood pressure readings at home. Diabetes Mellitus - controlled - per recent FSBS reports. I have recommended for the patient to have follow up labs prior to the next office visit. The patient has been instructed to continue with current medications as previously directed, continue with regular FSBS monitoring to assure continued control of diabetes. Pt to call for any acute concerns, complaints, or if the blood glucose readings are starting to become less controlled. Obesity - chronic issue with this patient. The pt has been counseled about diet changes, calorie restriction, and need to exercise. Pt will RTC in one month for weight check. Osteoporosis - Continue with atelvia and calcium and vitamin. 01/07/2011 Appointment: Katherine Mooney WPtel: [address] [place] [address] Other 01/07/2011 Patient Education: Patient Medication Summary Completed 01/07/2011 Appointment: Katherine Mooney WPtel: [address] [place] [address] Lab Draw 12/26/2010 Referral: Suni Whitman Referral Completed Instructions Comment . Hypertension - well controlled - continue with current medications, continue with no added salt diet. Pt has been encouraged to exercise daily. The pt has been advised to call the office if there are any acute concerns about change in blood pressure readings at home. Diabetes Mellitus - controlled - per recent FSBS reports. I have recommended for the patient to have follow up labs prior to the next office visit. The patient has been instructed to continue with current medications as previously directed, continue with regular FSBS monitoring to assure continued control of diabetes. Pt to call for any acute concerns, complaints, or if the blood glucose readings are starting to become less controlled. . Tick Bite - pt given script for treatment of infected tick bite, call for symptoms of worsening infection or nonhealing. RX for doxycycline x 10 days Allergic reaction - significant erythema surrounding the bite site, pt given kenalog 40mg IM x 1 today. . Hypertension - well controlled - continue with current medications, continue with no added salt diet. Pt has been encouraged to exercise daily. The pt has been advised to call the office if there are any acute concerns about change in blood pressure readings at home. Cough-improved today-discussed with Dr Mooney-monitor symptoms over the next week-if cough persists, will trial off lisinopril -instructed patient to call if the cough persists, gets any worse, or new symptoms develop. Patient verbalized understanding of plan. Monitor your blood pressure at home and record. Bring in your readings to your next appointment, or as directed. Call for chest pain, shortness of breath, headaches, or other concerns. . Hypertension - elevated today-call with readings in 2 weeks. The patient has been counseled to cut back on salt in diet for a no added salt diet, low fat diet, start an exercise program with low weight bearing exercises and higher aerobic activity for heart health. The patient is to check blood pressure readings as an outpatient and either fax , call, or email the readings to the office next week for practicioner to review. The pt is to call for acute concerns. Obesity - chronic issue with this patient. The pt has been counseled about diet changes, calorie restriction, and need to exercise. Pt will RTC in one month for weight check. . Diabetes Mellitus - controlled - per recent FSBS reports. I have recommended for the patient to have follow up labs prior to the next office visit. The patient has been instructed to continue with current medications as previously directed, continue with regular FSBS monitoring to assure continued control of diabetes. Pt to call for any acute concerns, complaints, or if the blood glucose readings are starting to become less controlled. Hypertension - well controlled - continue with current medications, continue with no added salt diet. Pt has been encouraged to exercise daily. The pt has been advised to call the office if there are any acute concerns about change in blood pressure readings at home. Hypothyroidism - pt with chronic hypothyroidism, continue with current medication, will monitor pt to signs or symptoms of lack of adequate supplementation. Pt is to continue with current dose of medication unless directed otherwise. Check labs at regular intervals wither q 3 months or q 6 months based on previous levels of control. Hyperlipidemia - pt has been counseled about appropriate diet, exercise, and need for low fat food choices. I have discussed the need for the patient to take medications as prescribed. If the patient has negative side effects from the medication, they are to CALL the office and not abruptly discontinue the medication without discussion with a practitioner in the office. We will check labs in 3-6 months for follow up on the patient's chronic medical problem and to assure normal liver response to medications. Obesity - chronic issue with this patient. The pt has been counseled about diet changes, calorie restriction, and need to exercise. Pt will RTC in one month for weight check. Hyperparathryoidism-check labs . Hypertension - uncontrolled - the patient has been counseled to cut back on salt in diet for a no added salt diet, low fat diet, start an exercise program with low weight bearing exercises and higher aerobic activity for heart health. The patient is to check blood pressure readings as an outpatient and either fax , call, or email the readings to the office next week for practicioner to review. The pt is to call for acute concerns. CHECK LABS IN 3 MONTHS -CBC, CMP, TSH, FREE T4, LIPID, HGB A1C . Diabetes Mellitus - controlled - per recent FSBS reports. I have recommended for the patient to have follow up labs prior to the next office visit. The patient has been instructed to continue with current medications as previously directed, continue with regular FSBS monitoring to assure continued control of diabetes. Pt to call for any acute concerns, complaints, or if the blood glucose readings are starting to become less controlled. Hypertension - well controlled - continue with current medications, continue with no added salt diet. Pt has been encouraged to exercise daily. The pt has been advised to call the office if there are any acute concerns about change in blood pressure readings at home. Hyperlipidemia - pt has been counseled about appropriate diet, exercise, and need for low fat food choices. I have discussed the need for the patient to take medications as prescribed. If the patient has negative side effects from the medication, they are to CALL the office and not abruptly discontinue the medication without discussion with a practitioner in the office. We will check labs in 3-6 months for follow up on the patient's chronic medical problem and to assure normal liver response to medications. Hypothyroidism - pt with chronic hypothyroidism, continue with current medication, will monitor pt to signs or symptoms of lack of adequate supplementation. Pt is to continue with current dose of medication unless directed otherwise. Check labs at regular intervals wither q 3 months or q 6 months based on previous levels of control. . Diabetes Mellitus - controlled - per recent FSBS reports. I have recommended for the patient to have follow up labs prior to the next office visit. The patient has been instructed to continue with current medications as previously directed, continue with regular FSBS monitoring to assure continued control of diabetes. Pt to call for any acute concerns, complaints, or if the blood glucose readings are starting to become less controlled. Hypertension - well controlled - continue with current medications, continue with no added salt diet. Pt has been encouraged to exercise daily. The pt has been advised to call the office if there are any acute concerns about change in blood pressure readings at home. Obesity - chronic issue with this patient. The pt has been counseled about diet changes, calorie restriction, and need to exercise. Pt will RTC in one month for weight check. . Bone aches- chec vitamin d, continue with atelvia Diabetes Mellitus - controlled - per recent FSBS reports. I have recommended for the patient to have follow up labs prior to the next office visit. The patient has been instructed to continue with current medications as previously directed, continue with regular FSBS monitoring to assure continued control of diabetes. Pt to call for any acute concerns, complaints, or if the blood glucose readings are starting to become less controlled. Hypertension - well controlled - continue with current medications, continue with no added salt diet. Pt has been encouraged to exercise daily. The pt has been advised to call the office if there are any acute concerns about change in blood pressure readings at home. . Medicare Exam - today we discussed the patients past history, immunizations, preventative exams/evaluations - colonoscopy, fecal occult blood testing, routine labs for renal function, glucose, cholesterol, osteoporosis evaluations, cardiovascular testing and cancer screenings. We have also discussed mental health and the signs/symptoms of depression. The patient was advised of home safety evaluations and the need to make sure that as the aging process continues, we need to be aware of different ways to make the home a safer place to reside. The patient has also been counseled that exercise is necessary - and of utmost importance as we age to help decrease fall risk and to maintain independece in the home. Today we discussed the need for the patient to create paperwork for Advanced directives as well as for the patient to provide this office with a copy of her DOP[employer] paperwork for health care surrogate. BMI 38 - The pt has been counseled about diet changes, calorie restriction, and need to exercise. Pt will RTC for weight check. . Diabetes Mellitus - controlled - per recent FSBS reports. I have recommended for the patient to have follow up labs prior to the next office visit. The patient has been instructed to continue with current medications as previously directed, continue with regular FSBS monitoring to assure continued control of diabetes. Pt to call for any acute concerns, complaints, or if the blood glucose readings are starting to become less controlled. Hypertension - well controlled - continue with current medications, continue with no added salt diet. Pt has been encouraged to exercise daily. The pt has been advised to call the office if there are any acute concerns about change in blood pressure readings at home. Asthma - chronic problem for this patient. We have reviewed chronic treatment strategy, symptom control, and plans for acute exacerbations. No changes today to the current treatment plan as the patient is stable, monitor for acute changes Hyperlipidemia - pt has been counseled about appropriate diet, exercise, and need for low fat food choices. I have discussed the need for the patient to take medications as prescribed. If the patient has negative side effects from the medication, they are to CALL the office and not abruptly discontinue the medication without discussion with a practitioner in the office. We will check labs in 3-6 months for follow up on the patient's chronic medical problem and to assure normal liver response to medications. Hypothyroidism - pt with chronic hypothyroidism, continue with current medication, will monitor pt to signs or symptoms of lack of adequate supplementation. Pt is to continue with current dose of medication unless directed otherwise. Check labs at regular intervals wither q 3 months or q 6 months based on previous levels of control. . Hypertension - well controlled - continue with current medications, continue with no added salt diet. Pt has been encouraged to exercise daily. The pt has been advised to call the office if there are any acute concerns about change in blood pressure readings at home. Diabetes Mellitus - controlled - per recent FSBS reports. I have recommended for the patient to have follow up labs prior to the next office visit. The patient has been instructed to continue with current medications as previously directed, continue with regular FSBS monitoring to assure continued control of diabetes. Pt to call for any acute concerns, complaints, or if the blood glucose readings are starting to become less controlled. . Diabetes Mellitus - Uncontrolled - per recent FSBS reports. I have recommended for the patient to have follow up labs prior to the next office visit. The patient has been instructed to continue with current medications as previously directed, continue with regular FSBS monitoring to assure continued control of diabetes. Pt to call for any acute concerns, complaints, or if the blood glucose readings are starting to become less controlled. I have recommended for the patient to follow more strictly to the diabetic diet as discussed in clinic to allow for greater blood glucose control. . Diabetes Mellitus - controlled - per recent FSBS reports. I have recommended for the patient to have follow up labs prior to the next office visit. The patient has been instructed to continue with current medications as previously directed, continue with regular FSBS monitoring to assure continued control of diabetes. Pt to call for any acute concerns, complaints, or if the blood glucose readings are starting to become less controlled. Hypertension - well controlled - continue with current medications, continue with no added salt diet. Pt has been encouraged to exercise daily. The pt has been advised to call the office if there are any acute concerns about change in blood pressure readings at home. call if blood pressures are greater than 170 . Hypertension - uncontrolled - the patient's medications have been modified as documented in the visit note. The patient has been counseled to cut back on salt in diet for a no added salt diet, low fat diet, start an exercise program with low weight bearing exercises and higher aerobic activity for heart health. The patient is to check blood pressure readings as an outpatient and either fax , call, or email the readings to the office next week for practitioner to review. The pt is to call for acute concerns. Hyperlipidemia - pt has been counseled about appropriate diet, exercise, and need for low fat food choices. I have discussed the need for the patient to take medications as prescribed. If the patient has negative side effects from the medication, they are to CALL the office and not abruptly discontinue the medication without discussion with a practitioner in the office. We will check labs in 3-6 months for follow up on the patient's chronic medical problem and to assure normal liver response to medications. . Hypertension - well controlled - continue with current medications, continue with no added salt diet. Pt has been encouraged to exercise daily. The pt has been advised to call the office if there are any acute concerns about change in blood pressure readings at home. Diabetes Mellitus - controlled - per recent FSBS reports. I have recommended for the patient to have follow up labs prior to the next office visit. The patient has been instructed to continue with current medications as previously directed, continue with regular FSBS monitoring to assure continued control of diabetes. Pt to call for any acute concerns, complaints, or if the blood glucose readings are starting to become less controlled. Hyperlipidemia - pt has been counseled about appropriate diet, exercise, and need for low fat food choices. I have discussed the need for the patient to take medications as prescribed. If the patient has negative side effects from the medication, they are to CALL the office and not abruptly discontinue the medication without discussion with a practicioner in the office. We will check labs in 3-6 months for follow up on the patient's chronic medical problem and to assure normal liver response to medications. Obesity - chronic issue with this patient. The pt has been counseled about diet changes, calorie restriction, and need to exercise. Pt will RTC in one month for weight check. . Hypertension - well controlled - continue with current medications, continue with no added salt diet. Pt has been encouraged to exercise daily. The pt has been advised to call the office if there are any acute concerns about change in blood pressure readings at home. Diabetes Mellitus - controlled - per recent FSBS reports. I have recommended for the patient to have follow up labs prior to the next office visit. The patient has been instructed to continue with current medications as previously directed, continue with regular FSBS monitoring to assure continued control of diabetes. Pt to call for any acute concerns, complaints, or if the blood glucose readings are starting to become less controlled. Hyperlipidemia - pt has been counseled about appropriate diet, exercise, and need for low fat food choices. I have discussed the need for the patient to take medications as prescribed. If the patient has negative side effects from the medication, they are to CALL the office and not abruptly discontinue the medication without discussion with a practitioner in the office. We will check labs in 3-6 months for follow up on the patient's chronic medical problem and to assure normal liver response to medications. . Hypertension - well controlled - continue with current medications, continue with no added salt diet. Pt has been encouraged to exercise daily. The pt has been advised to call the office if there are any acute concerns about change in blood pressure readings at home. Diabetes Mellitus - controlled - per recent FSBS reports. I have recommended for the patient to have follow up labs prior to the next office visit. The patient has been instructed to continue with current medications as previously directed, continue with regular FSBS monitoring to assure continued control of diabetes. Pt to call for any acute concerns, complaints, or if the blood glucose readings are starting to become less controlled. Obesity - chronic issue with this patient. The pt has been counseled about diet changes, calorie restriction, and need to exercise. Pt will RTC in one month for weight check. Osteoporosis - Continue with atelvia and calcium and vitamin. . Medicare Exam - today we discussed the patients past history, immunizations, preventative exams/evaluations - colonoscopy, fecal occult blood testing, routine labs for renal function, glucose, cholesterol, osteoporosis evaluations, cardiovascular testing and cancer screenings. We have also discussed mental health and the signs/symptoms of depression. The patient was advised of home safety evaluations and the need to make sure that as the aging process continues, we need to be aware of different ways to make the home a safer place to reside. The patient has also been counseled that exercise is necessary - and of utmost importance as we age to help decrease fall risk and to maintain independece in the home. Today we discussed the need for the patient to create paperwork for Advanced directives as well as for the patient to provide this office with a copy of her DOP[employer] paperwork for health care surrogate. Diovan 160mg po daily. Take at bedtime. Take other medications in the morning. Return in 2 weeks with blood pressure log.. Hypertension - uncontrolled - the patient's medications have been modified as documented in the visit note. The patient has been counseled to cut back on salt in diet for a no added salt diet , low fat diet, start an exercise program with low weight bearing exercises and higher aerobic activity for heart health. The patient is to check blood pressure readings as an outpatient and either fax , call, or email the readings to the office next week for practicioner to review. The pt is to call for acute concerns. Diabetes Mellitus - controlled - per recent FSBS reports. I have recommended for the patient to have follow up labs prior to the next office visit. The patient has been instructed to continue with current medications as previously directed, continue with regular FSBS monitoring to assure continued control of diabetes. Pt to call for any acute concerns, complaints, or if the blood glucose readings are starting to become less controlled. . Cellulitis - continue with oral antibiotics as previously directed, return to clinic as previously directed, call for acute change in symptoms, worsening redness, warmth, discharge. Continue bactroban-call if symptoms do not resolve and we can do another round of abx. . Diabetes Mellitus - Uncontrolled - per recent FSBS reports. I have recommended for the patient to have follow up labs prior to the next office visit. The patient has been instructed to continue with current medications as previously directed, continue with regular FSBS monitoring to assure continued control of diabetes. Pt to call for any acute concerns, complaints, or if the blood glucose readings are starting to become less controlled. I have recommended for the patient to follow more strictly to the diabetic diet as discussed in clinic to allow for greater blood glucose control. CHANGE THE METFORMIN DOSE TO 500 mg 1/2 pill in the morning, noon, and a full pill at bedtime. Hypertension - well controlled - continue with current medications, continue with no added salt diet. Pt has been encouraged to exercise daily. The pt has been advised to call the office if there are any acute concerns about change in blood pressure readings at home. Hyperlipidemia - pt has been counseled about appropriate diet, exercise, and need for low fat food choices. I have discussed the need for the patient to take medications as prescribed. If the patient has negative side effects from the medication, they are to CALL the office and not abruptly discontinue the medication without discussion with a practicioner in the office. We will check labs in 3-6 months for follow up on the patient's chronic medical problem and to assure normal liver response to medications.
--- OUTSIDE RECORDS SUMMARY | 2017-11-14 09:55 | XMS REPORT | CCD ---
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/[address]: [id number] Nonsmoker 01/07/2011 Has the patient ever used [...] Unknown Osteoporosis Unknown Active 01/07/2011 Unknown 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 Active 01/07/2011 Unknown OBESITY ICD-9: [...] 01/07/2011 Active Osteoporosis Unknown 01/07/2011 Active 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 01/07/2011 Active OBESITY ICD-9: 278.00 01/07/2011 Active Osteoporosis ICD-9: 733.00 01/07/2011 Active Medications Medication Codes Instructions Start Date Stop Date Status Fill Instructions Ventolin HFA 90 mcg/actuation aerosol inhaler RxNorm: 876196 INHALE ONE TO TWO PUFFS BY MOUTH EVERY 4 HOURS NEEDED 04/26/2017 06/28/2017 Active Ventolin HFA 90 mcg/actuation aerosol inhaler RxNorm: 250532 INHALE ONE TO TWO PUFFS BY MOUTH EVERY 4 HOURS NEEDED 04/26/2017 04/25/2017 Inactive metformin 1,000 mg tablet RxNorm: 827022 TAKE ONE TABLET BY MOUTH TWICE A DAY 04/23/2017 06/21/2017 Active Synthroid 75 mcg tablet RxNorm: 122252 1 Tablet(s) PO daily TAKE ONE TABLET BY MOUTH DAILY 03/02/2017 11/26/2017 Active Ventolin HFA 90 mcg/actuation aerosol inhaler RxNorm: 027423 1-2 Puff(s) INH Q4 PRN 03/02/2017 04/25/2017 Inactive Synthroid 50 mcg tablet RxNorm: 457880 TAKE ONE TABLET BY MOUTH DAILY 12/30/2016 03/01/2017 Inactive metformin 1,000 mg tablet RxNorm: 627235 TAKE ONE TABLET BY MOUTH TWICE A DAY 11/16/2016 12/15/2016 Inactive metformin 1,000 mg tablet RxNorm: 162316 TAKE ONE TABLET BY MOUTH TWICE A DAY 11/16/2016 11/15/2016 Inactive metformin 1,000 mg tablet RxNorm: 682478 TAKE ONE TABLET BY MOUTH TWICE A DAY 10/12/2016 11/10/2016 Inactive Synthroid 50 mcg tablet RxNorm: 309229 TAKE ONE TABLET BY MOUTH DAILY 10/05/2016 12/29/2016 Inactive metformin 1,000 mg tablet RxNorm: 323724 TAKE ONE TABLET BY MOUTH TWICE A DAY 09/08/2016 10/07/2016 Inactive metformin 1,000 mg tablet RxNorm: 774692 TAKE ONE TABLET BY MOUTH TWICE A DAY 08/06/2016 09/04/2016 Inactive amlodipine 10 mg tablet RxNorm: 360390 Tablet(s) TAKE ONE TABLET BY MOUTH DAILY 07/31/2016 07/25/2017 Active amlodipine 10 mg tablet RxNorm: 446253 TAKE ONE TABLET BY MOUTH DAILY 07/30/2016 07/29/2016 Inactive amlodipine 10 mg tablet RxNorm: 987606 TAKE ONE TABLET BY MOUTH DAILY 07/30/2016 07/30/2016 Inactive Advair Diskus 250 mcg-50 mcg/dose powder for inhalation RxNorm: 6881180 INHALE ONE PUFF BY MOUTH TWICE A DAY 07/21/2016 06/15/2017 Active metformin 1,000 mg tablet RxNorm: 752128 TAKE ONE TABLET BY MOUTH TWICE A DAY 07/06/2016 08/04/2016 Inactive atorvastatin 20 mg tablet RxNorm: 119067 1 Tablet(s) PO daily 06/22/2016 03/01/2017 Inactive atorvastatin 20 mg tablet RxNorm: 082481 1 Tablet(s) PO TIW 06/21/2016 Inactive metoprolol succ 50 mg-hydrochlorothiazide 12.5 mg tablet, ext.rel 24 hr RxNorm: 534425 1 Tablet(s) PO QPM 05/25/20162016 Inactive Synthroid 50 mcg tablet RxNorm: 743561 TAKE ONE TABLET BY MOUTH DAILY 05/12/2016 10/04/2016 Inactive Ziac 10 mg-6.25 mg tablet RxNorm: 091084 TAKE ONE TABLET BY MOUTH TWICE A DAY 05/11/2016 05/24/2016 Inactive metformin 1,000 mg tablet RxNorm: 196102 TAKE ONE TABLET BY MOUTH TWICE A DAY 04/27/2016 06/25/2016 Inactive ProAir HFA 90 mcg/actuation aerosol inhaler RxNorm: 366390 INHALE TWO PUFFS BY MOUTH THREE TIMES A DAY 04/27/20162016 Inactive amlodipine 10 mg tablet RxNorm: 315321 TAKE ONE TABLET BY MOUTH DAILY 03/27/2016 07/24/2016 Inactive metformin 1,000 mg tablet RxNorm: 878898 TAKE ONE TABLET BY MOUTH TWICE A DAY 01/23/2016 04/21/2016 Inactive amlodipine 10 mg tablet RxNorm: 480160 TAKE ONE TABLET BY MOUTH DAILY 12/25/2015 03/23/2016 Inactive Synthroid 50 mcg tablet RxNorm: 683743 TAKE ONE TABLET BY MOUTH DAILY 11/15/2015 05/11/2016 Inactive Synthroid 50 mcg tablet RxNorm: 451961 TAKE ONE TABLET BY MOUTH DAILY 09/16/2015 11/14/2015 Inactive amlodipine 10 mg tablet RxNorm: 930731 TAKE ONE TABLET BY MOUTH DAILY 09/03/2015 12/01/2015 Inactive Tamiflu 75 mg capsule RxNorm: 470418 1 Capsule(s) PO BID 201507/22/2015 Inactive Tamiflu 75 mg capsule RxNorm: 111919 1 Capsule(s) PO BID 201507/27/2015 Inactive Synthroid 50 mcg tablet RxNorm: 267518 TAKE ONE TABLET BY MOUTH DAILY 06/21/2015 09/15/2015 Inactive Advair Diskus 250 mcg-50 mcg/dose powder for inhalation RxNorm: 2178625 1 Puff(s) INH BID 06/20/2015 06/13/2016 Inactive ONE PUFF BY INHALATION TWICE DAILY . Advair Diskus 250 mcg-50 mcg/dose powder for inhalation RxNorm: 0537411 1 Puff(s) INH BID 06/10/2015 06/19/2015 Inactive ONE PUFF BY INHALATION TWICE DAILY . Advair Diskus 250 mcg-50 mcg/dose powder for inhalation RxNorm: 8301199 1 Puff(s) INH BID 06/07/2015 06/09/2015 Inactive ONE PUFF BY INHALATION TWICE DAILY . Ziac 10 mg-6.25 mg tablet RxNorm: 922844 1 Tablet(s) PO BID 02/201601/04/2016 Inactive ProAir HFA 90 mcg/actuation aerosol inhaler RxNorm: 233860 2 Puff(s) INH TID INHALE 2 PUFFS BY MOUTH THREE TIMES DAILY 05/01/2015 11/26/2015 Inactive Ziac 10 mg-6.25 mg tablet RxNorm: 486684 Tablet(s) BID TABLET(S) PO 04/16/2015 05/09/2015 Inactive amlodipine 10 mg tablet RxNorm: 777045 TAKE ONE TABLET BY MOUTH DAILY 04/15/2015 08/12/2015 Inactive metformin 1,000 mg tablet RxNorm: 822557 1 TABLET(S) BID 1 TABLET(S) PO BID 03/15/2015 06/12/2015 Inactive Patient requests 90 days supply metformin 1,000 mg tablet RxNorm: 946315 1 Tablet(s) PO BID 1 TABLET(S) PO BID 03/14/2015 09/09/2015 Inactive metformin 1,000 mg tablet RxNorm: 277969 1 Tablet(s) BID 1 TABLET(S) PO BID 03/13/2015 03/13/2015 Inactive Synthroid 50 mcg tablet RxNorm: 739417 Tablet(s) PO TAKE ONE TABLET BY MOUTH DAILY 02/26/2015 06/20/2015 Inactive metformin 1,000 mg tablet RxNorm: 755894 1 Tablet(s) BID 1 TABLET(S) PO BID 11/26/2014 12/03/2014 Inactive cephalexin 500 mg tablet RxNorm: 991783 1 Tablet(s) PO TID 02/201511/06/2014 Inactive cephalexin 500 mg tablet RxNorm: 647651 1 Tablet(s) PO TID 02/201511/13/2014 Inactive Prozac 10 mg capsule RxNorm: 007654 1 Capsule(s) PO daily 11/0507/03/2015 Inactive Synthroid 50 mcg tablet RxNorm: 814307 Tablet(s) PO TAKE ONE TABLET BY MOUTH DAILY 07/17/2014 02/25/2015 Inactive ProAir HFA 90 mcg/actuation aerosol inhaler RxNorm: 494290 2 Puff(s) INH TID INHALE 2 PUFFS BY MOUTH THREE TIMES DAILY 07/17/2014 02/11/2015 Inactive amlodipine 10 mg tablet RxNorm: 663827 Tablet(s) 1 TABLET(S) PO DAILY 07/17/2014 04/14/2015 Inactive lovastatin 20 mg tablet RxNorm: 768540 Tablet(s) TAKE 1 TABLET BY MOUTH EVERY NIGHT AT BEDTIME 07/17/2014 01/12/2015 Inactive Advair Diskus 250 mcg-50 mcg/dose powder for inhalation RxNorm: 7902617 1 Puff(s) INH BID 07/17/2014 07/16/2014 Inactive ONE PUFF BY INHALATION TWICE DAILY . metformin 1,000 mg tablet RxNorm: 803874 Tablet(s) 1 TABLET(S) PO BID 07/17/2014 11/25/2014 Inactive Ziac 10 mg-6.25 mg tablet RxNorm: 360741 Tablet(s) TABLET(S) PO 07/17/2014 04/12/2015 Inactive TAKE 1 TABLET BY MOUTH TWICE DAILY . Advair Diskus 250 mcg-50 mcg/dose powder for inhalation RxNorm: 3870854 1 Puff(s) INH BID 07/17/2014 06/06/2015 Inactive ONE PUFF BY INHALATION TWICE DAILY . lovastatin 20 mg tablet RxNorm: 522468 TAKE 1 TABLET BY MOUTH EVERY NIGHT AT BEDTIME 05/31/2014 07/16/2014 Inactive lovastatin 20 mg tablet RxNorm: 381034 1 Tablet(s) PO QHS TAKE 1 TABLET BY MOUTH EVERY NIGHT AT BEDTIME 05/29/20142014 Inactive Synthroid 50 mcg tablet RxNorm: 005123 1 TABLET(S) PO DAILY TAKE ONE TABLET BY MOUTH DAILY 03/02/2014 07/16/2014 Inactive Synthroid 50 mcg tablet RxNorm: 184943 1 Tablet(s) PO daily TAKE ONE TABLET BY MOUTH DAILY 03/02/2014 05/30/2014 Inactive metformin 1,000 mg tablet RxNorm: 812439 1 TABLET(S) PO BID 07/16/2014 Inactive Ziac 10 mg-6.25 mg tablet RxNorm: 401265 TABLET(S) PO 201307/16/2014 Inactive TAKE 1 TABLET BY MOUTH TWICE DAILY . Symbicort 160 mcg-4.5 mcg/actuation HFA aerosol inhaler RxNorm: 9213916 1 INH BID 10/29/2013 10/23/2014 Inactive amlodipine 10 mg tablet RxNorm: 092579 1 TABLET(S) PO DAILY 07/16/2014 Inactive Synthroid 50 mcg tablet RxNorm: 232999 1 Tablet(s) PO daily TAKE ONE TABLET BY MOUTH DAILY 10/02/2013 03/01/2014 Inactive ProAir HFA 90 mcg/actuation aerosol inhaler RxNorm: 8192267 2 Puff(s) INH TID INHALE 2 PUFFS BY MOUTH THREE TIMES DAILY 10/02/2013 04/29/2014 Inactive lovastatin 20 mg tablet RxNorm: 401082 Tablet(s) PO TAKE 1 TABLET BY MOUTH EVERY NIGHT AT BEDTIME 08/24/2013 05/28/2014 Inactive metformin 1,000 mg tablet RxNorm: 617456 1 Tablet(s) PO BID 02/13/2014 Inactive metformin 1,000 mg tablet RxNorm: 094026 1 Tablet(s) PO BID 07/18/2013 Inactive metformin 500 mg tablet RxNorm: 440838 2 Tablet(s) PO BID TAKE 1 TABLET BY MOUTH TWICE DAILY 07/17/2013 07/18/2013 Inactive Synthroid 50 mcg tablet RxNorm: 358297 Tablet(s) PO TAKE ONE TABLET BY MOUTH DAILY 07/13/2013 10/01/2013 Inactive Pneumovax 23 25 mcg/0.5 mL injection RxNorm: 483165 1/2 Milliliter(s) Inj 07/12/2013 07/12/2013 Inactive lovastatin 20 mg tablet RxNorm: 326892 Tablet(s) PO TAKE 1 TABLET BY MOUTH EVERY NIGHT AT BEDTIME 07/03/2013 08/23/2013 Inactive Patient requests 90 days supply* * lovastatin 20 mg tablet RxNorm: 811109 Tablet(s) PO TAKE 1 TABLET BY MOUTH EVERY NIGHT AT BEDTIME 06/30/2013 07/02/2013 Inactive Synthroid 50 mcg tablet RxNorm: 650592 Tablet(s) PO TAKE ONE TABLET BY MOUTH DAILY 04/24/2013 07/16/2014 Inactive FreeStyle Lite Strips RxNorm: strip miscellaneous TEST TWICE DAILY 04/03/2013 No Stop Date Active Ziac 10 mg-6.25 mg tablet RxNorm: 054150 Tablet(s) PO 201201/28/2014 Inactive TAKE 1 TABLET BY MOUTH TWICE DAILY . Synthroid 50 mcg tablet RxNorm: 853912 1 Tablet(s) PO daily TAKE ONE TABLET BY MOUTH DAILY 11/10/2012 04/23/2013 Inactive metformin 500 mg tablet RxNorm: 985537 1 Tablet(s) PO BID TAKE 1 TABLET BY MOUTH TWICE DAILY 10/24/2012 07/16/2013 Inactive Symbicort 160 mcg-4.5 mcg/actuation HFA aerosol inhaler RxNorm: 7351282 1 INH BID 09/21/2012 10/15/2013 Inactive Symbicort 160 mcg-4.5 mcg/actuation HFA Aerosol Inhaler RxNorm: 4414946 1 INH BID 09/21/2012 09/20/2012 Inactive ProAir HFA 90 mcg/actuation Aerosol Inhaler RxNorm: 8061925 INH INHALE 2 PUFFS BY MOUTH THREE TIMES DAILY 09/21/20122013 Inactive ProAir HFA 90 mcg/actuation Aerosol Inhaler RxNorm: 294950 HFA Aerosol Inhaler INH INHALE 2 PUFFS BY MOUTH THREE TIMES DAILY 09/20/2012 09/20/2012 Inactive amlodipine 10 mg tablet RxNorm: 847428 Tablet(s) PO TAKE 1 TABLET BY MOUTH DAILY 08/29/2012 No Stop Date Active Synthroid 50 mcg tablet RxNorm: 327122 Tablet(s) PO TAKE ONE TABLET BY MOUTH DAILY 06/01/2012 11/09/2012 Inactive lovastatin 20 mg tablet RxNorm: 022694 Tablet(s) PO TAKE 1 TABLET BY MOUTH EVERY NIGHT AT BEDTIME 06/01/2012 06/29/2013 Inactive FreeStyle Lite Strips RxNorm: Miscellaneous BID 03/21/2012 04/02/2013 Inactive Ziac 10 mg-6.25 mg tablet RxNorm: 760281 Tablet(s) PO 201102/07/2013 Inactive TAKE 1 TABLET BY MOUTH TWICE DAILY . 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 ProAir HFA 90 mcg/actuation Aerosol Inhaler RxNorm: 028593 HFA Aerosol Inhaler INH 08/31/2011 09/19/2012 Inactive USE 2 PUFFS BY MOUTH THREE TIMES DAILY Advair Diskus 250 mcg-50 mcg/dose for Inhalation RxNorm: 7439115 Disk with Device INH 2011 11/09/2011 Inactive ONE PUFF BY INHALATION TWICE DAILY . doxycycline hyclate 100 mg Tab RxNorm: 878565 1 Tablet(s) PO BID 07/14/2011 07/23/2011 Inactive Kenalog 40 mg/mL Susp for Injection RxNorm: 5347118 Milliliter(s) Inj 07/14/2011 07/14/2011 Inactive Atelvia 35 mg Tab RxNorm: 4055608 Tablet(s) PO 06/01/2011 03/07/2012 Inactive TAKE 1 TABLET BY MOUTH EVERY WEEK lovastatin 20 mg tablet RxNorm: 381504 Tablet(s) PO 05/21/2011 05/31/2012 Inactive TAKE 1 TABLET BY MOUTH EVERY NIGHT AT BEDTIME Synthroid 25 mcg tablet RxNorm: 610908 Tablet(s) PO 04/23/2011 11/09/2011 Inactive TAKE ONE TABLET BY MOUTH DAILY Ziac 10 mg-6.25 mg tablet RxNorm: 685178 2 Tablet(s) PO daily 02/10/2011 02/22/2012 Inactive ProAir HFA 90 mcg/actuation Aerosol Inhaler RxNorm: 203620 2 Puff(s) INH TID 01/07/2011 08/04/2011 Inactive and prn amlodipine 10 mg tablet RxNorm: 354945 1 Tablet(s) PO daily 02/201112/08/2011 Inactive metformin 500 mg tablet RxNorm: 522539 1 Tablet(s) PO BID 01/0710/24/2012 Inactive Advair Diskus 250 mcg-50 mcg/dose for Inhalation RxNorm: 3783779 1 Puff(s) INH BID 12/04/2010 12/04/2010 Inactive Ziac 10 mg-6.25 mg Tab RxNorm: 877856 1 Tablet(s) PO daily 10/201001/02/2011 Inactive aspirin 325 mg Tab RxNorm: 978923 1 Tablet(s) PO PRN pt uses for headaches No Start Date Active Calcium RxNorm: 1 PO daily 2000 units daily No Start Date Active Reclast 5 mg/100 mL IV RxNorm: 663957 Milliliter(s) IV pt receives this in november at No Start Date Active Cinnamon oral RxNorm: 074210 oral No Start Date Active Vitamin D2 50,000 unit capsule RxNorm: 470039 1 [place]aps[place]) [place] [address] units weekly x [address] 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 No Start Date Active bisoprolol 10 mg-hydrochlorothiazide 6.25 mg tablet RxNorm: 672741 1 Tablet(s) PO BID No Start Date Active Accu-Chek Active Test Strips RxNorm: Miscellaneous lety No Start Date Active Vitamin D3 4,000 unit capsule RxNorm: 4024824 1 Capsule(s) PO daily No Start Date Active losartan 100 mg tablet RxNorm: 589874 1 Tablet(s) PO daily No Start Date Active Fish Oil (with DHA-EPA) oral RxNorm: 8887107 oral No Start Date Active Diovan 160 mg Tab RxNorm: 192818 1 Tablet(s) PO daily No Start Date 03/04/2011 Inactive multivitamin Oral RxNorm: Oral No Start Date 03/01/2017 Inactive FreeStyle Lite Strips RxNorm: Miscellaneous BID No Start Date 03/20/2012 Inactive Ziac 10 mg-6.25 mg Tab RxNorm: 434414 1 Tablet(s) PO daily No Start Date 02/09/2011 Inactive ProAir HFA Inhl RxNorm : Inhalation No Start Date 06/22/2016 Inactive metformin 500 mg Tab RxNorm: 442936 Tablet(s) PO No Start Date 01/06/2011 Inactive 1/ 2 q am and 1 q asrah Synthroid 25 mcg Tab RxNorm: 697760 1 Tablet(s) PO daily No Start Date 04/22/2011 Inactive Vitamin D 2,000 unit Cap RxNorm: 1 Capsule(s) PO daily No Start Date 03/07/2012 Inactive ProAir HFA 90 mcg/Actuation Aerosol Inhaler RxNorm: 461556 INH BID No Start Date 01/06/2011 Inactive and prn Atelvia 35 mg Tab RxNorm: 6324232 1 Tablet(s) PO daily No Start Date 05/31/2011 Inactive amlodipine 5 mg Tab RxNorm: 753652 1 Tablet(s) PO daily No Start Date 03/04/2011 Inactive ZOSTAVAX (PF) 19,400 unit Sub-Q Soln RxNorm: 9154265 SQ No Start Date 11/23/2011 Inactive 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 bring to our office for administration lovastatin 20 mg Tab RxNorm: 192630 1 Tablet(s) PO daily No Start Date 05/20/2011 Inactive Medication Administered Medication Codes Instructions Start Date Status Pneumovax 23 25 mcg/0.5 mL injection RxNorm: 684670 1/2Milliliter 07/12/2013 No longer Active Kenalog 40 mg/mL Susp for Injection RxNorm: 9857415 Milliliter 07/14/2011 No longer Active Immunizations Vaccine [...] 733.90 06/03/2011 Osteoporosis ICD-9: 733.00 06/03/2011 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 10/2011 Reason For Visit Reason [...] Observation Code Item Item Code Result Date Free T4 Wad915 FREE T4 0.93 ng/dL 05/25/2016 %Hba1C Syd595 % HbA1c 88403-0 6.2 % 05/25/2016 %Hba1C Amy421 Gluc Ave 131 mg/dL 05/25/2016 Comp Metabolic Sia419 NA 139 mEq/L 05/25/2016 Comp Metabolic Rqq558 K 4.2 mEq/L 05/25/2016 Comp Metabolic Efk972 CL 103 mEq/L 05/25/2016 Comp Metabolic Fey106 CO2 27.0 mEq/L 05/25/2016 Comp Metabolic Ksc609 ANION GAP 13 05/25/2016 Comp Metabolic Ito762 GLUCOSE 129 mg/dL 05/25/2016 Comp Metabolic Zbd066 Creat 0.6 mg/dL 05/25/2016 Comp Metabolic Lqb696 eGFR 105 ml/min/1.73m2 05/25/2016 Comp Metabolic Xyq753 BUN 10 mg/dL 05/25/2016 Comp Metabolic Pdk773 B/C Ratio 16.7 Ratio 05/25/2016 Comp Metabolic Btf502 CALCIUM 9.3 mg/dL 05/25/2016 Comp Metabolic Mpy717 ALK PHOS 66 U/L 05/25/2016 Comp Metabolic Nxh677 AST(SGOT) 12 U/L 05/25/2016 Comp Metabolic Pwm495 ALT(SGPT) 17 U/L 05/25/2016 Comp Metabolic Vky140 BILI T 0.5 mg/dL 05/25/2016 Comp Metabolic Gun045 ALBUMIN 4.3 g/dL 05/25/2016 Comp Metabolic Gjw956 TPRO 6.9 g/dL 05/25/2016 Comp Metabolic Ods046 GLOB 2.6 g/dL 05/25/2016 Comp Metabolic Yml245 A/G Ratio 1.6 Ratio 05/25/2016 Comp Metabolic Dzw056 Osmo 278 mOsmo 05/25/2016 Tsh Ord6 hTSH II 1.65 uIU/mL 05/25/2016 Lipid Ord30 CHOL 174 mg/dL 05/25/2016 [...] 29.1 pg 05/25/2016 Cbc With Differential Ord2 [place]% 6.4 % 05/25/2016 Cbc With Differential Ord2 [...] 1.54 K/ul 05/25/2016 Cbc With Differential Ord2 [place] ABS# 0.4 K/ul 05/25/2016 Cbc With Differential [...] 1.22 uIU/mL 01/08/2016 Vitamin D 25 Oh [id number] VITAMIN D, 25 HYDROXY 51.91 ng/mL Free T4 Jck406 FREE T4 0.91 ng/dL 06/07/2015 Lipid Ord30 CHOL 190 mg/dL 06/07/2015 Lipid Ord30 HDL 41.0 mg/dl 06/07/2015 Lipid Ord30 TRIG 201 mg/dL 06/07/2015 Lipid Ord30 LDL 109 mg/dL 06/07/2015 Lipid Ord30 C/HDL 4.6 Ratio 06/07/2015 %Hba1C Par120 % HbA1c 45078-0 6.2 % 06/07/2015 %Hba1C Qbh300 Gluc Ave 131 mg/dL 06/07/2015 Cbc With [...] 27.5 % 06/07/2015 Cbc With Differential Ord2 [place]% 6.6 % 06/07/2015 Cbc With Differential Ord2 [...] 1.63 K/ul 06/07/2015 Cbc With Differential Ord2 [place] ABS# 0.4 K/ul 06/07/2015 Cbc With Differential Ord2 Eos ABS# 0.1 K/ul 06/07/2015 Cbc With Differential Ord2 Baso ABS# 0.0 K/ul 06/07/2015 Cbc With Differential Ord2 New Analyzer Notice Please note new ref ranges starting 04-10-2015 due to implemntation of new five part differential hematolgy analyzer. 06/07/2015 Tsh Ord6 hTSH II 2.13 uIU/mL 06/07/2015 Comp Metabolic Fir194 NA 139 mEq/L 06/07/2015 Comp Metabolic Rst039 K 4.1 mEq/L 06/07/2015 Comp Metabolic Khx828 CL 102 mEq/L 06/07/2015 Comp Metabolic Ohf557 CO2 28.0 mEq/L 06/07/2015 Comp Metabolic Mms143 ANION GAP 13 06/07/2015 Comp Metabolic Wke420 GLUCOSE 117 mg/dL 06/07/2015 Comp Metabolic Mia942 Creat 0.6 mg/dL 06/07/2015 Comp Metabolic Sfi612 eGFR 114 ml/min/1.73m2 06/07/2015 Comp Metabolic Rmi022 BUN 14 mg/dL 06/07/2015 Comp Metabolic Zvo674 B/C Ratio 25.0 Ratio 06/07/2015 Comp Metabolic Usg914 CALCIUM 9.1 mg/dL 06/07/2015 Comp Metabolic Aah769 ALK PHOS 59 U/L 06/07/2015 Comp Metabolic Bcw437 AST(SGOT) 12 U/L 06/07/2015 Comp Metabolic Ogt316 ALT(SGPT) 12 U/L 06/07/2015 Comp Metabolic Ibg976 BILI T 0.6 mg/dL 06/07/2015 Comp Metabolic Ohw784 ALBUMIN 4.3 g/dL 06/07/2015 Comp Metabolic Cgi706 TPRO 6.9 g/dL 06/07/2015 Comp Metabolic Cnq618 GLOB 2.6 g/dL 06/07/2015 Comp Metabolic Pal334 A/G Ratio 1.6 Ratio 06/07/2015 Comp Metabolic Gzh822 Osmo 279 mOsmo 06/07/2015 TSH 4174948 TSH 3.116 uIU/ML 07/12/2013 CHEM 14 6986359 AST 15 U/L 07/12/2013 CHEM 14 9249124 ALT 17 IU/L 07/12/2013 CHEM 14 1284990 BUN 12 MG/DL 07/12/2013 CHEM 14 3081184 ALBUMIN 4.5 GM/DL 07/12/2013 CHEM 14 5180849 CHLORIDE 104 MMOL/L 07/12/2013 CHEM 14 2514878 BILI TOT 0.7 MG/DL 07/12/2013 CHEM 14 7908594 ALK PHOS 64 U/L 07/12/2013 CHEM 14 2020934 SODIUM 140 MMOL/L 07/12/2013 CHEM 14 6592959 CREATININE 0.66 MG/DL 07/12/2013 CHEM 14 9160033 CALCIUM 9.4 MG/DL 07/12/2013 CHEM 14 4781644 POTASSIUM 4.0 MMOL/L 07/12/2013 CHEM 14 1752407 PROT TOT 7.0 GM/DL 07/12/2013 CHEM 14 2873781 GLUCOSE 134 MG/DL 07/12/2013 CHEM 14 2058847 BICARB 27 MMOL/L 07/12/2013 CHEM 14 9813998 ANION GAP 9 MEQ/L 07/12/2013 CBC 3895757 WBC 7.2 10e9/L 07/12/2013 CBC 3837640 RBC 4.47 10e12/L 07/12/2013 CBC 7559681 HGB 12.9 g/dL 07/12/2013 CBC 7452352 HCT DET 39.6 % 07/12/2013 CBC 2371992 MCV 88.6 fL 07/12/2013 CBC 8913762 MCH 28.9 pg 07/12/2013 CBC 6515340 MCHC 32.6 g/dL 07/12/2013 CBC 5048245 PLT 332 10e9/L 07/12/2013 CBC 5319872 MPV 10.6 fL 07/12/2013 CBC 8307906 SATISH % 68.1 % 07/12/2013 CBC 3801511 LY % 22.3 % 07/12/2013 CBC 8263992 MON % 7.5 % 07/12/2013 CBC 9676152 EOS % 2.0 % 07/12/2013 CBC 9198987 BASO % 0.1 % 07/12/2013 CBC 4896073 RDW 13.5 % 07/12/2013 CBC 5721856 ABS SATISH 4.90 10e9/L 07/12/2013 CBC 3064122 ABS LYMPH 1.61 10e9/L 07/12/2013 CBC 3767743 ABS MONO 0.54 10e9/L 07/12/2013 CBC 9905295 ABS EOS 0.14 10e9/L 07/12/2013 CBC 6272227 ABS BASO 0.01 10e9/L 07/12/2013 CBC 4178351 RDW-SD 42.5 fL 07/12/2013 FREE T4 5679820 FREE T4 1.16 NG/DL 07/12/2013 GFR CALC 5806739 GFR AA >60 ML/MIN 07/12/2013 GFR CALC 2277685 GFR NON-AA >60 ML/MIN 07/12/2013 LIPID GRP HDL TEST 41 MG/DL 07/12/2013 LIPID GRP TRIG 284 MG/DL 07/12/2013 LIPID GRP TEST LDL 55 MG/DL 07/12/2013 LIPID GRP CHOL 153 MG/DL 07/12/2013 LIPID GRP RCHOL/HDL 3.73 RATIO 07/12/2013 A1C HPLC 9626955 A1C HPLC 44251-5 6.6 % 07/12/2013 INT IR PTH 4832645 PTH TEST 11 PG/ML 07/18/2012 CA PTH 4693714 CA PTH 9.8 MG/DL 07/18/2012 TSH 4491809 TSH 3.804 uIU/ML 07/15/2012 LIPID GRP HDL TEST 40 MG/DL 04/22/2012 LIPID GRP TRIG 247 MG/DL 04/22/2012 LIPID GRP TEST LDL 59 MG/DL 04/22/2012 LIPID GRP CHOL 148 MG/DL 04/22/2012 LIPID GRP RCHOL/HDL 3.70 RATIO 04/22/2012 TSH 2337356 TSH 3.502 uIU/ML 04/22/2012 A1C HPLC 2559795 A1C HPLC 27727-3 5.6 % 04/22/2012 FREE T4 1017640 FREE T4 1.27 NG/DL 04/22/2012 CHEM 14 0242454 AST 11 U/L 04/22/2012 CHEM 14 6507097 ALT 16 IU/L 04/22/2012 CHEM 14 7352373 BUN 14 MG/DL 04/22/2012 CHEM 14 5828373 ALBUMIN 4.7 GM/DL 04/22/2012 CHEM 14 7049594 CHLORIDE 103 MMOL/L 04/22/2012 CHEM 14 9832786 BILI TOT 0.6 MG/DL 04/22/2012 CHEM 14 9100787 ALK PHOS 69 U/L 04/22/2012 CHEM 14 1479663 SODIUM 140 MMOL/L 04/22/2012 CHEM 14 3830283 CREATININE 0.70 MG/DL 04/22/2012 CHEM 14 2865031 CALCIUM 9.6 MG/DL 04/22/2012 CHEM 14 4983409 POTASSIUM 4.1 MMOL/L 04/22/2012 CHEM 14 9672793 PROT TOT 7.0 GM/DL 04/22/2012 CHEM 14 2636851 GLUCOSE 120 MG/DL 04/22/2012 CHEM 14 3636996 BICARB 29 MMOL/L 04/22/2012 CHEM 14 4633991 ANION GAP 8 MEQ/L 04/22/2012 GFR CALC 4309884 GFR AA >60 ML/MIN 04/22/2012 GFR CALC 9983213 GFR NON-AA >60 ML/MIN 04/22/2012 CBC 2846054 WBC 6.3 10e9/L 04/22/2012 CBC 9427861 RBC 4.45 10e12/L 04/22/2012 CBC 7776141 HGB 12.9 g/dL 04/22/2012 CBC 6244609 HCT DET 39.2 % 04/22/2012 CBC 9039314 MCV 88.1 fL 04/22/2012 CBC 5941139 MCH 29.0 pg 04/22/2012 CBC 9050737 MCHC 32.9 g/dL 04/22/2012 CBC 5460487 PLT 341 10e9/L 04/22/2012 CBC 3870148 MPV 10.2 fL 04/22/2012 CBC 5922641 SATISH % 65.7 % 04/22/2012 CBC 3328779 LY % 25.0 % 04/22/2012 CBC 0582412 MON % 7.4 % 04/22/2012 CBC 4116838 EOS % 1.6 % 04/22/2012 CBC 4455628 BASO % 0.3 % 04/22/2012 CBC 6325153 RDW 13.5 % 04/22/2012 CBC 3104960 ABS SATISH 4.14 10e9/L 04/22/2012 CBC 3516423 ABS LYMPH 1.58 10e9/L 04/22/2012 CBC 5444493 ABS MONO 0.47 10e9/L 04/22/2012 CBC 0697506 ABS EOS 0.10 10e9/L 04/22/2012 CBC 8109891 ABS BASO 0.02 10e9/L 04/22/2012 CBC 5309597 RDW-SD 42.3 fL 04/22/2012 LIVER PNL 5269984 AST 14 U/L 11/24/2011 LIVER PNL 4443453 ALK PHOS 66 U/L 11/24/2011 LIVER PNL 8922650 BILI TOT 0.4 MG/DL 11/24/2011 LIVER PNL 1529065 ALT 18 IU/L 11/24/2011 LIVER PNL 2334758 BILI DIR 0.1 MG/DL 11/24/2011 LIVER PNL 9574960 ALBUMIN 4.5 GM/DL 11/24/2011 LIVER PNL 8642442 PROT TOT 6.8 GM/DL 11/24/2011 CBC 9260616 WBC 7.3 10e9/L 11/03/2011 CBC 8859677 RBC 4.49 10e12/L 11/03/2011 CBC [id number] HGB 12.9 g/dL 11/03/2011 CBC [id number] HCT DET 39.6 % 11/03/2011 CBC [id number] MCV 88.2 fL 11/03/2011 CBC [id number] MCH 28.7 pg 11/03/2011 CBC 3416979 MCHC 32.6 g/dL 11/03/2011 CBC 2452463 PLT 322 10e9/L 11/03/2011 CBC [id number] MPV 9.9 fL 11/03/2011 CBC 3302528 SATISH % 71.0 % 11/03/2011 CBC 1805474 LY % 21.0 % 11/03/2011 CBC 9484771 MON % 6.3 % 11/03/2011 CBC 2522711 EOS % 1.4 % 11/03/2011 CBC 6896362 BASO % 0.3 % 11/03/2011 CBC 5890091 RDW 13.6 % 11/03/2011 CBC 8168154 ABS SATISH 5.18 10e9/L 11/03/2011 CBC 5728881 ABS LYMPH 1.53 10e9/L 11/03/2011 CBC 9785006 ABS MONO 0.46 10e9/L 11/03/2011 CBC 9451167 ABS EOS 0.10 10e9/L 11/03/2011 CBC 4880440 ABS BASO 0.02 10e9/L 11/03/2011 CBC 3323596 RDW-SD 42.9 fL 11/03/2011 TSH [id number] TSH 4.385 uIU/ML 11/03/2011 A1C HPLC 2772457 A1C HPLC 04706-8 6.3 % 11/03/2011 GFR CALC 6013059 GFR AA >60 ML/MIN 11/03/2011 GFR CALC 7486363 GFR NON-AA >60 ML/MIN 11/03/2011 LIPID GRP HDL TEST 38 MG/DL 11/03/2011 LIPID GRP TRIG 291 MG/DL 11/03/2011 LIPID GRP TEST LDL 38 MG/DL 11/03/2011 LIPID GRP CHOL 134 MG/DL 11/03/2011 LIPID GRP RCHOL/HDL 3.53 RATIO 11/03/2011 CHEM 14 9635346 AST 15 U/L 11/03/2011 CHEM 14 0733020 ALT 18 IU/L 11/03/2011 CHEM 14 8868319 BUN 15 MG/DL 11/03/2011 CHEM 14 5564353 ALBUMIN 4.7 GM/DL 11/03/2011 CHEM 14 5413991 CHLORIDE 104 MMOL/L 11/03/2011 CHEM 14 1519659 BILI TOT 0.8 MG/DL 11/03/2011 CHEM 14 1829572 ALK PHOS 74 U/L 11/03/2011 CHEM 14 4182742 SODIUM 141 MMOL/L 11/03/2011 CHEM 14 6514645 CREATININE 0.68 MG/DL 11/03/2011 CHEM 14 6158486 CALCIUM 9.6 MG/DL 11/03/2011 CHEM 14 2327573 POTASSIUM 4.2 MMOL/L 11/03/2011 CHEM 14 9881113 PROT TOT 7.1 GM/DL 11/03/2011 CHEM 14 6095608 GLUCOSE 127 MG/DL 11/03/2011 CHEM 14 2034859 BICARB 27 MMOL/L 11/03/2011 CHEM 14 1544502 ANION GAP 10 MEQ/L 11/03/2011 Review of [...] - General 1995 Abdomen abdominal exam Overall: no tenderness 06/10/2012 None Full Exam - General 1994 Abdomen abdominal exam Overall: normal bowel sounds 06/10/2012 None Full Exam - General 1994 Musculoskeletal head and neck Overall: head atraumatic 06/10/2012 None Full Exam - General 1995 Musculoskeletal head and neck Overall: cervical spine [...] atraumatic 06/03/2011 None Full Exam - General 1995 Musculoskeletal head and neck Overall: cervical spine [...] G0439 07/04/2015 ADMIN PNEUMOCOCCAL VACCINE SNOMED CT: 31618258 CPT-4: G0009 07/12/2013 Pneumococcal Polysaccharide Vaccine, 23-Valent, Ad CPT-4: 04704 07/12/2013 ROUTINE VENIPUNCTURE CPT-4: 70885 07/12/2013 ROUTINE VENIPUNCTURE CPT-4: 44041 07/15/2012 ROUTINE VENIPUNCTURE CPT-4: 29971 04/22/2012 ROUTINE VENIPUNCTURE CPT-4: 38327 11/24/2011 ROUTINE VENIPUNCTURE CPT-4: 01888 11/03/2011 TRIAMCINOLONE ACET INJ NOS CPT-4: J3301 07/14/2011 ROUTINE VENIPUNCTURE CPT-4: 38333 06/03/2011 Vital Signs Date Vital 03/02/2017 Blood Pressure 1: 132/74 Code : 8480-6 BMI: 38.6 Code : 70990-8 Heart Rate 1 : 71 bpm Height: 4'12" SpO2: 99% Weight: 195 lbs 07/16/2016 Blood Pressure 1: 110/52 Code : 8480-6 BMI: 38.0 Code : 38230-6 Heart Rate 1 : 68 bpm Height: 4'12" SpO2: 96% Waist Measure (cm): 99 cm Weight: 192 lbs 06/22/2016 Blood Pressure 1: 130/60 Code : 8480-6 BMI: 38.6 Code : 28865-9 Heart Rate 1 : 72 bpm Height: 4'12" SpO2: 96% Weight: 195 lbs 06/04/2016 Blood Pressure 1: 130/68 Code : 8480-6 BMI: 38.4 Code : 65747-1 Heart Rate 1 : 82 bpm Height: 4'12" SpO2: 98% Weight: 194 lbs 05/28/2016 Blood Pressure 1: 178/74 Code : 8480-6 Heart Rate 1: 103 bpm SpO2: 97% 05/25/2016 Blood Pressure 1: 142/60 Code : 8480-6 BMI: 38.4 Code : 61692-1 Heart Rate 1 : 77 bpm Height: 4'12" SpO2: 97% Weight: 194 lbs 07/04/2015 Blood Pressure 1: 140/62 Code : 8480-6 BMI: 38.4 Code : 74555-4 Heart Rate 1 : 70 bpm Height: 4'12" SpO2: 97% Waist Measure (cm): 107 cm Weight: 194 lbs 06/07/2015 Blood Pressure 1: 140/80 Code : 8480-6 BMI: 38.2 Code : 05970-7 Heart Rate 1 : 77 bpm Height: 4'12" SpO2: 97% Weight: 193 lbs 11/05/2014 Blood Pressure 1: 148/62 Code : 8480-6 BMI: 37.2 Code : 57084-2 Heart Rate 1 : 75 bpm Height: 4'12" SpO2: 96% Weight: 188 lbs 07/17/2014 Blood Pressure 1: 118/76 Code : 8480-6 BMI: 38.6 Code : 23647-6 Heart Rate 1 : 74 bpm Height: 4'12" SpO2: 97% Weight: 195 lbs 04/20/2014 Blood Pressure 1: 122/74 Code : 8480-6 BMI: 39.8 Code : 76538-0 Heart Rate 1 : 72 bpm Height: 4'12" Weight: 201 lbs 07/12/2013 Blood Pressure 1: 118/60 Code : 8480-6 BMI: 40.0 Code : 44168-4 Heart Rate 1 : 67 bpm Height: 4'12" SpO2: 95% Temperature: 36.2 (C) / 97.1 (F) Weight: 202 lbs 10/10/2012 Blood Pressure 1: 138/72 Code : 8480-6 BMI: 38.6 Code : 35559-4 Heart Rate 1 : 72 bpm Height: 5' Weight: 197 lbs 8 oz 06/10/2012 Blood Pressure 1: 150/74 Code : 8480-6 BMI: 38.7 Code : 85587-3 Heart Rate 1 : 72 bpm Height: 5' Weight: 198 lbs 04/26/2012 Blood Pressure 1: 128/74 Code : 8480-6 BMI: 38.7 Code : 47638-2 Heart Rate 1 : 78 bpm Height: 5' Weight: 198 lbs 03/08/2012 Blood Pressure 1: 134/68 Code : 8480-6 BMI: 38.9 Code : 38081-7 Heart Rate 1 : 72 bpm Height: 5' Weight: 199 lbs 5 oz 11/10/2011 Blood Pressure 1: 132/72 Code : 8480-6 BMI: 39.3 Code : 74635-9 Heart Rate 1 : 78 bpm Height: 5' Respiratory Rate: 18 bpm Weight: 201 lbs 07/14/2011 Blood Pressure 1: 128/52 Code : 8480-6 Heart Rate 1: 76 bpm Respiratory Rate : 20 bpm Temperature: 36.7 (C) / 98.1 (F) 07/08/2011 Blood Pressure 1: 132/62 Code : 8480-6 BMI: 39.5 Code : 18575-0 Heart Rate 1 : 66 bpm Height: 5' Respiratory Rate: 16 bpm Weight: 202 lbs 06/03/2011 Blood Pressure 1: 140/64 Code : 8480-6 BMI: 40.0 Code : 05929-5 Heart Rate 1 : 72 bpm Height: 5' Respiratory Rate: 16 bpm Weight: 205 lbs 05/06/2011 Blood Pressure 1: 122/62 Code : 8480-6 BMI: 40.3 Code : 74156-4 Heart Rate 1 : 76 bpm Height: 5' Respiratory Rate: 16 bpm Weight: 206 lbs 8 oz 03/04/2011 Blood Pressure 1: 160/76 Code : 8480-6 BMI: 40.5 Code : 84266-7 Heart Rate 1 : 76 bpm Height: 4'12" Respiratory Rate: 16 bpm Weight: 204 lbs 02/11/2011 Blood Pressure 1: 152/72 Code : 8480-6 BMI: 39.8 Code : 60553-4 Heart Rate 1 : 80 bpm Height: 5' Respiratory Rate: 16 bpm Weight: 204 lbs 01/07/2011 Blood Pressure 1: 138/72 Code : 8480-6 BMI: 39.5 Code : 37758-0 Heart Rate 1 : 64 bpm Height: [...] mellitus Exercise moderate exercise 10/10/2012 aquasize at [facility] Weight follow up Location diffusely [...] data Encounters Encounter Performer Location Codes Date ([id number]) 03975 EST. PATIENT, LEVEL IV Diagnosis: Type 2 diabetes mellitus with hyperglycemia[ICD10: E11.65] Diagnosis: Hypothyroidism, unspecified[ICD10: E03.9] Diagnosis: Essential (primary) hypertension[ICD10: I10] Diagnosis: Mixed hyperlipidemia[ICD10: E78.2] Rosa Mooney MD, [facility] CPT-4: 09246 03/02/2017 ([id number]) 75964 EST. PATIENT, LEVEL IV Diagnosis: Type 2 diabetes mellitus with hyperglycemia[ICD10: E11.65] Diagnosis: Essential (primary) hypertension[ICD10: I10] Diagnosis: Mixed hyperlipidemia[ICD10: E78.2] Katherine Mooney MD, [facility] CPT-4: 67685 06/22/2016 ([id number]) 72903 EST. PATIENT, LEVEL III Diagnosis: Essential (primary) hypertension[ICD10: I10] Diagnosis: Cough[ICD10: R05] Rosa Mooney MD, [facility] CPT-4: 42398 06/04/2016 ([id number]) Miscellaneous no charge Diagnosis: Essential (primary) hypertension[ICD10: I10] Katherine Mooney MD, [facility] CPT-4: 33583 05/28/2016 ([id number]) 06883 EST. PATIENT, LEVEL IV Diagnosis: Essential (primary) hypertension[ICD10: I10] Diagnosis: Mixed hyperlipidemia[ICD10: E78.2] Katherine Mooney MD, [facility] CPT-4: 51194 05/25/2016 ([id number]) 01342 EST. PATIENT, LEVEL IV Diagnosis: Type 2 diabetes mellitus with hyperglycemia[ICD10: E11.65] Diagnosis: Essential (primary) hypertension[ICD10: I10] Diagnosis: Body mass index (BMI) 38.0-38.9, adult[ICD10: Z68.38] Diagnosis: Mixed hyperlipidemia[ICD10: E78.2] Diagnosis: Hypothyroidism, unspecified[ICD10: E03.9] Diagnosis: Primary hyperparathyroidism[ICD10: E21.0] Rosa Mooney MD, [facility] CPT-4: 58979 06/07/2015 ([id number]) 72515 EST. PATIENT, LEVEL III Diagnosis: Paronychia of finger of left hand[ICD9: 681.02] Diagnosis: Depression[ICD9: 311] Rosa Mooney MD, [facility] CPT-4: 17481 11/05/2014 ([id number]) 05514 EST. PATIENT, LEVEL IV Diagnosis: ESSENTIAL HYPERTENSION[ICD9: 401.9] Diagnosis: DIABETES TYPE II[ICD9: 250.00] Katherine Mooney MD, [facility] CPT- 4: 97277 07/17/2014 ([id number]) 33402 EST. PATIENT, LEVEL IV Diagnosis: Diabetes mellitus type 2, uncontrolled[ICD9: 250.02] Diagnosis: Hypothyroidism[ICD9: 244.9] Diagnosis: Elevated lipids[ICD9: 272.4] Diagnosis: ESSENTIAL HYPERTENSION[ICD9: 401.9] Diagnosis: Asthma[ICD9: 493.90] Katherine Mooney MD, [facility] CPT-4: 83154 04/20/2014 ([id number]) 18803 EST. PATIENT, LEVEL III Diagnosis: DM W/O COMPLICATION TYPE II, UNCONTROLLED[SNOMED: 33302878] Katherine Mooney MD , [facility] CPT-4: 75803 10/10/2012 ([id number]) 30392 EST. PATIENT, LEVEL III Diagnosis: ESSENTIAL HYPERTENSION[SNOMED: 86739740] Diagnosis: DM W/O COMPLICATION TYPE II, UNCONTROLLED[SNOMED: 45271325] Diagnosis: OBESITY[ICD9: 278.00] Katherine Monoey MD, [facility] CPT-4: 82828 06/10/2012 ([id number]) 15280 EST. PATIENT, LEVEL IV Diagnosis: ESSENTIAL HYPERTENSION[SNOMED: 33185089] Diagnosis: DIABETES TYPE II[SNOMED: 828361659] Diagnosis: OBESITY[ICD9: 278.00] Diagnosis: HYPERLIPIDEMIA[ICD9: 272.4] Katherine Mooney MD, [facility] CPT- 4: 44363 04/26/2012 ([id number]) 71518 EST. PATIENT, LEVEL IV Diagnosis: ESSENTIAL HYPERTENSION[SNOMED: 80292540] Diagnosis: DIABETES TYPE II[SNOMED: 271937067] Katherine Mooney MD, [facility] CPT-4: 53019 03/08/2012 ([id number]) 99912 EST. PATIENT, LEVEL IV Diagnosis: Diabetes mellitus type 2, uncontrolled[SNOMED: 84425498] Diagnosis: ESSENTIAL HYPERTENSION[SNOMED: 96522379] Diagnosis: HYPERLIPIDEMIA[ICD9: 272.4] Katherine Mooney MD, [facility] CPT- 4: 89887 11/10/2011 ([id number]) 95582 EST. PATIENT, LEVEL III Diagnosis: Tick bite[ICD9: 919.4] Diagnosis: Itching[ICD9: 698.9] Katherine Mooney MD, [facility] CPT-4: 37802 07/14/2011 [id number]) 38593 EST. PATIENT, LEVEL IV Diagnosis: ESSENTIAL HYPERTENSION[SNOMED: 30765449] Diagnosis: DIABETES TYPE II[SNOMED: 242765783] Katherine Mooney MD, [facility] CPT-4: 64689 07/08/2011 ([id number]) 79058 EST. PATIENT, LEVEL IV Diagnosis: ESSENTIAL HYPERTENSION[SNOMED: 89173789] Diagnosis: DIABETES TYPE II[SNOMED: 053140687] Diagnosis: OBESITY[ICD9: 278.00] Diagnosis: Osteoporosis[ICD9: 733.00] Diagnosis: Bone pain[ICD9: 733.90] Katherine Mooney MD, [facility] CPT-4: 44664 06/03/2011 ([id number]) 67290 EST. PATIENT, LEVEL IV Diagnosis: ESSENTIAL HYPERTENSION[SNOMED: 87571444] Diagnosis: DIABETES TYPE II[SNOMED: 706871657] Diagnosis: OBESITY[ICD9: 278.00] Diagnosis: DIETARY SURVEIL/RN ADMISSION[ICD9: V65.3] Katherine Mooney MD, [facility] CPT-4: 12027 05/06/2011 48909 EST. PATIENT, LEVEL III Diagnosis: ESSENTIAL HYPERTENSION[SNOMED: 54268069] Katherine Mooney MD, [facility] CPT-4: 94388 03/04/2011 28091 EST. PATIENT, LEVEL IV Diagnosis: ESSENTIAL HYPERTENSION[SNOMED: 02996590] Diagnosis: DIABETES TYPE II[SNOMED: 933976326] Katherine Mooney MD, [facility] CPT-4: 62261 02/11/2011 44287 EST. PATIENT, LEVEL IV Diagnosis: ESSENTIAL HYPERTENSION[SNOMED: 51100915] Diagnosis: DIABETES TYPE II[SNOMED: 134966857] Diagnosis: Osteoporosis[ICD9: 733.00] Diagnosis: DIETARY SURVEIL/RN ADMISSION[ICD9: V65.3] Diagnosis: OBESITY[ICD9: 278.00] Katherine Mooney MD, [facility] CPT-4: 90931 01/07/2011 Plan of Care Planned Activity Notes [...] Completed 03/02/2017 Appointment: [phone] [place] [address] (30 min) Complex 02/23/2017 Visit Plan: Medicare [...] Summary Completed 07/16/2016 Appointment: Carolina Diaz [phone] [facility] - Annual Wellness Visit 07/09/2016 Visit Plan: [...] to medications. 06/22/2016 Appointment: Katherine Mooney WPtel: [phone] [facility] (15 min) Moderate 06/22/2016 Patient Education: Patient Medication Summary Completed 06/22/2016 Patient Education: Obesity Completed 06/22/2016 Appointment: Katherine Mooney WPtel: [phone] [facility] [place] (15 min) Moderate 06/10/2016 Visit Plan: Hypertension [...] of plan. 06/04/2016 Appointment: Rosa Barry WPtel: [phone] [phone] [place] (30 min) Complex 06/04/2016 Patient Education: [...] medications. 05/25/2016 App[facility]ment: [phone] (15 min) Moderate 05/25/2016 Patient Education: Patient Medication Summary Completed 05/25/2016 Patient Education: Obesity Completed 05/25/2016 Care Plan: Referral Order SNOMED-CT : 356479310 Pending 05/25/2016 Visit Plan: Medicare Exam - [...] will RTC for weight check. 07/04/2015 Appointment: [facility] - Annual Wellness Visit 07/04/2015 Patient Education: [...] controlled. 07/17/2014 Appointment: [facility]el[phone] Follow [facility] 07/17/2014 Patient Education: Patient Medication [...] of control. 04/20/2014 Appointment: [facility]el[phone] Follow up 04/20/2014 Patient Education: Patient Medication Summary Completed 04/20/2014 Patient Education: Hypertension Completed 04/20/2014 Appointment: Katherine Mooney [facility]Ptel[facility] [facility] Draw 07/12/2013 Appointment: Katherine Mooney WPtel[facility] [facility] - Initial Preventive Physical Exam 07/12/2013 Patient Education: Patient Medication Summary Completed 07/12/2013 Patient Education: Hypertension Completed 07/12/2013 Patient Education: Patient Medication Summary Completed 07/12/2013 Appointment: Katherine Mooney WPtel: [address] [place] [address] Follow up 05/04/2013 Appointment: Katherine Mooney WPtel: [facility] Follow up 04/17/2013 Visit Plan: Diabetes Mellitus [...] for greater blood glucose control. 10/10/2012 Appointment: Katherine Mooney WPtel: [facility] [place] Follow up 10/10/2012 Patient Education: Patient Medication Summary Completed 10/10/2012 Appointment: Rosa Barry WPtel: [phone] [place] Lab Draw 07/15/2012 Patient Education: Patient [...] check. 06/10/2012 Appointment: Rosa Barry WPtel: [phone] [phone] Follow up 06/10/2012 Patient Education: Patient Medication Summary Completed 06/10/2012 Patient Education: Hypertension Completed 06/10/2012 Appointment: Katherine [facility]Ptel[phone] Follow up 05/31/2012 Visit Plan: Hypertension [...] check. 04/26/2012 Appointment: Katherine [facility]Ptel[phone] Follow up 04/26/2012 Patient Education: Patient Medication Summary Completed 04/26/2012 Patient Education: Hypertension Completed 04/26/2012 Appointment: Katherine Mooney WPtel: [phone] [facility] Lab Draw 04/22/2012 Patient Education: Patient Medication [...] less controlled. 03/08/2012 Appointment: [facility]Ptel[phone] [facility] Patient Preventative visit 03/08/2012 Patient Education: Patient Medication Summary Completed 03/08/2012 Patient Education: Hypertension Completed 03/08/2012 Appointment: Rosa Barry [facility]Ptel: [phone] [facility] 12/09/2011 Patient Education: Patient Medication Summary Completed [...] to medications. 11/10/2011 Appointment: Katherine Mooney WPtel: [facility] [address] Follow up 11/10/2011 Patient Education: Patient Medication [...] 1 today. 07/14/2011 Appointment: Katherine Mooney WPtel: [address] [place], [place] [phone] [place] Other 07/14/2011 Patient Education: Patient Medication [...] at home. 07/08/2011 Appointment: Katherine Mooney WPtel: [phone] [facility] Other 07/08/2011 Patient Education: Patient Medication Summary Completed 07/08/2011 Patient Education: High Blood Pressure: Essential Hypertension Completed 2011 Appointment: Katherine Mooney WPtel: [phone] [facility]66[facility] Other 07/01/2011 Visit Plan: Bone [...] at home. 06/03/2011 Appointment: Katherine Mooney WPtel: [facility]66[facility] Other 06/03/2011 Patient Education: Patient Medication Summary [...] weight check. 05/06/2011 Appointment: Katherine Mooney WPtel: [facility] [place] Other 05/06/2011 Patient Education: Patient Medication Summary Completed 05/06/2011 Patient Education: High Blood Pressure: Essential Hypertension Completed 2011 Patient Education: .Amazing charts Diabetic meal planning guide Completed 05/06 Appointment: Katherine Mooney WPtel: [facility] Other 03/18/2011 Visit Plan: Hypertension - uncontrolled [...] acute concerns. 03/04/2011 Appointment: Katherine Mooney WPtel: [facility] Other 03/04/2011 Patient Education: Patient Medication Summary Completed 03/04/2011 Patient Education: High Blood Pressure: Essential Hypertension Completed 2010 Appointment: Katherine Mooney WPtel: [address] [place], [place] [phone] Follow up 02/18/2011 Visit Plan: Hypertension - [...] less controlled. 02/11/2011 Appointment: Rosa Barry WPtel: [address] [place], [place] [phone] Follow up 02/11/2011 Appointment: Amy Mooneyy WPtel: [address] [place], [place] [phone] Other 02/11/2011 Patient Education: Patient Medication Summary Completed 02/11/2011 Patient Education: High Blood Pressure: Essential Hypertension Completed 2010 Appointment: Katherine Mooney WPtel: [address] [place], [place] [phone] Other 01/08/2011 Visit Plan: Hypertension [...] and vitamin. 01/07/2011 Appointment: Katherine Mooney WPtel: [address] [place], [place] [phone] Other 01/07/2011 Patient Education: Patient Medication Summary Completed 01/07/2011 Appointment: Katherine Mooney WPtel: [address] [place], [place] [phone] Lab Draw 12/26/2010 Referral: Suni Whitman Referral Completed Instructions Comment Monitor your blood pressure at home and [...] in blood pressure readings at home. . Hypertension - well controlled - continue [...] symptoms develop. Patient verbalized understanding of plan. . Hypertension - well controlled - continue [...] kenalog 40mg IM x 1 today. . Cellulitis - continue with oral antibiotics as previously directed, return to clinic as previously directed, call for acute change in symptoms, worsening redness, warmth, discharge. Continue bactroban-call if symptoms do not resolve and we can do another round of abx. . Diabetes Mellitus - controlled - per [...] RTC in one month for weight check. Diovan 160mg po daily. Take at bedtime. [...] are starting to become less controlled. . Medicare Exam - today we discussed [...] her DOPA paperwork for health care surrogate. CHECK LABS IN 3 MONTHS -CBC, CMP, [...] with atelvia and calcium and vitamin. . Hypertension - well controlled - continue [...] liver response to medications. . Hypertension - uncontrolled - the patient [...] pt is to call for acute concerns. . Diabetes Mellitus - controlled - per [...] weight check. Hyperparathryoidism-check labs . Hypertension - well controlled - continue [...] RTC in one month for weight check. call if blood pressures are greater than [...] assure normal liver response to medications. . Diabetes Mellitus - controlled - per [...] in blood pressure readings at home. . Hypertension - well controlled - continue [...] are starting to become less controlled. . Medicare Exam - today we discussed [...] for weight check. . Diabetes Mellitus - Uncontrolled - per [...] assure normal liver response to medications. . Diabetes Mellitus - controlled - per [...] levels of control. . Diabetes Mellitus - Uncontrolled - per [...]
--- NOTE | 2017-11-14 10:27 | ED Integumentary General ---
General Chief Complaint: Allergic Reaction Stated Complaint: RASH/ALLERGIC REACTION Nursing Triage Note: Pt ambulated to rm 9 w/o difficulty. Pt states she was working in her yard 3-4 days ago and then developed a rash. Pt states she has been taking bendryl w/o relief and feels the rash is spreading. Source: patient Exam Limitations: no limitations History of Present Illness Date Seen by Provider: Nov 14, 2017 Time Seen by Provider: 10:21 Initial Comments This 72-year-old white female presents with diffuse itching which has progressed over the last several days from poison quyen. The patient has had no associated fever, chills, shortness of breath, cough, difficulty swallowing, or associated nausea vomiting or diarrhea. Patient is in the care of Dr. Mooney. Allergies and Home Medications Allergies Coded Allergies: nitrous oxide (Verified Allergy, Severe, 06/10/16) SEVERE ASTHMA ATTACK TARAH Inhibitors (Verified Allergy, Mild, 06/10/16) COUGH diazepam (Verified Allergy, Mild, 06/10/16) PSYCHOTIC RESPONSE Home Medications Albuterol Sulfate 1 Puff Puff, 2 PUFF IH Q4H PRN for SHORTNESS OF BREATH, ( Reported) 1 PUFF = 90 MCG Amlodipine Besylate 10 Mg Tablet, 10 MG PO DAILY, (Reported) Aspirin 81 Mg Tablet.dr, 81 MG PO DAILY, (Reported) Atorvastatin Calcium 20 Mg Tablet, 20 MG PO MoWeFr, (Reported) Bisoprolol Fumarate/Hctz 1 Each Tablet, 1 TAB PO DAILY, (Reported) Fluticasone/Salmeterol 1 Each Blst.w.dev, 1 PUFF IH BID, (Reported) Levothyroxine Sodium 50 Mcg Tablet, 50 MCG PO DAILY, (Reported) Losartan Potassium 100 Mg Tablet, 100 MG PO DAILY, (Reported) Patient Home Medication List Home Medication List Reviewed: Yes Constitutional: No chills, No fever EENTM: No ear pain Respiratory: No cough Cardiovascular: No chest pain Gastrointestinal: No abdominal pain, No nausea, No vomiting Genitourinary: No decreased output Musculoskeletal: No back pain Skin: rash (there is an erythematous: Last seen vesicular rash over the extremities and face suggestive of a contact dermatitis (poison quyen).) Psychiatric/Neurological: No Symptoms Reported Endocrine: No Symptoms Reported Hematologic/Lymphatic: No Symptoms Reported Past Pjvulus-Wfslzv-Aavonf Hx Past Med/Social Hx: Reviewed Nursing Past Med/Soc Hx Patient Social History Alcohol Use: Denies Use Recreational Drug Use: No 2nd Hand Smoke Exposure: No Recent Foreign Travel: No Contact w/Someone Who Travel: No Recent Infectious Disease Expo: No Physical Abuse: No Sexual Abuse: No Immunizations Up To Date Date of Pneumonia Vaccine: Jan 02, 2014 Past Medical History Surgeries: Yes (R ARM PLATE, PARATHYOID GLAND, SCREWS R LEG) Respiratory: Yes Asthma Cardiac: Yes Hypertension Gastrointestinal: No Endocrine: Yes Hypothyroidsim, Diabetes, Non-Insulin dep Cancer: No Psychosocial: No Nursing Suicide Risk Score: 0 Blood Disorders: No Physical Exam Vital Signs Vital Signs - First Documented 11/14/17 09:49 Temp 97.3 Pulse 91 Resp 15 B/P (MAP) 162/81 (108) Pulse Ox 96 O2 Delivery Room Air Capillary Refill : Less Than 3 Seconds General Appearance: WD/WN, no apparent distress HEENT: normal ENT inspection, TMs normal Neck: non-tender Respiratory: no respiratory distress Back: normal inspection Extremities: normal range of motion Neurologic/Psychiatric: no motor/sensory deficits Skin: rash (poison quyen over the extremities neck and face.) Progress/Results/Core Measures Results/Orders Vital Signs/I&O 11/14/17 09:49 Temp 97.3 Pulse 91 Resp 15 B/P (MAP) 162/81 (108) Pulse Ox 96 O2 Delivery Room Air Blood Pressure Mean: 108 Progress Progress Note : Time: 10:25 Progress Note Patient was given 125 mg of Solu-Medrol IM. I discussed treatment at home with prednisone, Pepcid, Benadryl, and triamcinolone. Next I recommended following up with her doctor on Wednesday. I asked her to return to emergency department if she had any further problems or questions. Departure Impression Primary Impression: Poison quyen Disposition: HOME, SELF-CARE Condition: Improved Departure-Patient Inst. Decision time for Depature: 10:29 Referrals: VANESSA MOONEY MD (PCP/Family) Primary Care Physician Patient Instructions: Poison Quyen, Poison [place], Poison [place] (DC) Add. Discharge Instructions: Take the prednisone, Benadryl, Pepcid, and triamcinolone as prescribed. Close follow-up with your doctor tomorrow if not improved. Return if any problems or questions. All discharge instructions reviewed with patient and/or family. Voiced understanding. ANDRESSA BERMUDEZ MD Nov 14, 2017 10:27
[2017-11-14 10:43] VITALS: BP 162/81
[2017-11-14] MEDS ORDERED: methylPREDNISolone 125 MG (Solu-MEDROL) VIAL IVP ONE (10:45)
== END 2017-11-14 10:43 | disposition home or self-care (01) ==
LOC: EDUNIT# 09:39 → ER 09:39
DX: L23.7 Allergic contact dermatitis due to plants, except food (principal); J45.909 Unspecified asthma, uncomplicated; I10 Essential (primary) hypertension; E03.9 Hypothyroidism, unspecified; E11.9 Type 2 diabetes mellitus without complications; Z88.8 Allergy status to other drugs, medicaments and biological substances; Z79.82 Long term (current) use of aspirin
CPT/HCPCS: 99284

== ENCOUNTER 2018-05-31 18:32 | Emergency (ER) | payer MEDICARE ==
[~2018-05-31] VITALS: Ht 154.9 cm; Wt 88.0 kg
[~2018-05-31 18:32] MED LIST changes: -AMLO10TA2 PO; +AMLO10TA7 PO; -LOSA100T28 PO; +LOSA100T57 PO; +METF-399 PO; -METF10002 PO
[2018-05-31] MEDS ORDERED: TETANUS,DIPTH,PERTUSS P/F (BOOSTRIX) 0.5 ML VIAL IM ONE (19:00)
--- NOTE | 2018-05-31 19:16 | ED Upper Extremity ---
General Chief Complaint: Laceration Stated Complaint: R HAND LAC Nursing Triage Note: LAC TO RIGHT THUMB AFTER CUTTING UP FOOD LAST NIGHT AROUND 6PM. TOOK DRESSING OFF TONIGHT AND IS STARTED BLEEDING AGAIN. Nursing Sepsis Screen: No Definite Risk Source: patient Exam Limitations: no limitations History of Present Illness Date Seen by Provider: May 31, 2018 Time Seen by Provider: 18:50 Initial Comments 72-year-old female who presents to the emergency room with complaints of bleeding laceration to her right thumb. She reports that she was using a mandolin around 6 PM last night to cut vegetables when she cut her finger. She has a skin avulsion to her right thumb approximately 0.5 cm in diameter. She reports that when she got to change the dressing's evening and started bleeding again and she was having difficulty getting stopped. She is not up-to-date on her tetanus vaccine. Onset: yesterday Pain/Injury Location: right thumb Allergies and Home Medications Allergies Coded Allergies: nitrous oxide (Verified Allergy, Severe, 06/10/16) SEVERE ASTHMA ATTACK TARAH Inhibitors (Verified Allergy, Mild, 06/10/16) COUGH diazepam (Verified Allergy, Mild, 06/10/16) PSYCHOTIC RESPONSE Home Medications Albuterol Sulfate 1 Puff Puff, 2 PUFF IH Q4H PRN for SHORTNESS OF BREATH, ( Reported) 1 PUFF = 90 MCG Amlodipine Besylate 10 Mg Tablet, 10 MG PO DAILY, (Reported) Aspirin 81 Mg Tablet.dr, 81 MG PO DAILY, (Reported) Atorvastatin Calcium 20 Mg Tablet, 20 MG PO MoWeFr, (Reported) Bisoprolol Fumarate/Hctz 1 Each Tablet, 1 TAB PO DAILY, (Reported) Fluticasone/Salmeterol 1 Each Blst.w.dev, 1 PUFF IH BID, (Reported) Levothyroxine Sodium 50 Mcg Tablet, 50 MCG PO DAILY, (Reported) Losartan Potassium 100 Mg Tablet, 100 MG PO DAILY, (Reported) Patient Home Medication List Home Medication List Reviewed: Yes Review of Systems Constitutional: no symptoms reported, see HPI Skin: see HPI, other (laceration to the right side of the right thumb) All Other Systems Reviewed Negative Unless Noted: Yes Past Sldgmqn-Fhpaap-Waxfbt Hx Past Med/Social Hx: Reviewed Nursing Past Med/Soc Hx Patient Social History Alcohol Use: Denies Use Recreational Drug Use: No 2nd Hand Smoke Exposure: No Recent Foreign Travel: No Contact w/Someone Who Travel: No Recent Infectious Disease Expo: No Immunizations Up To Date Tetanus Booster (TDap): More than 5yrs Date of Pneumonia Vaccine: Jan 02, 2014 Past Medical History Surgeries: Yes (R ARM PLATE, PARATHYOID GLAND, SCREWS R LEG) Respiratory: Yes Asthma Cardiac: Yes Hypertension Gastrointestinal: No Endocrine: Yes Hypothyroidsim, Diabetes, Non-Insulin dep Cancer: No Psychosocial: No Blood Disorders: No Family Medical History Reviewed Nursing Family Hx Physical Exam Vital Signs Vital Signs - First Documented 05/31/18 18:40 Temp 98.0 Pulse 69 Resp 16 B/P (MAP) 200/72 (114) Pulse Ox 97 O2 Delivery Room Air Capillary Refill : Less Than 3 Seconds Height, Weight, BMI Height: 5'1.00" Weight: 194lbs. 0.0oz. 87.021848ax; 36.8 BMI Method:Stated General Appearance: WD/WN, no apparent distress Cardiovascular: normal peripheral pulses, regular rate, rhythm, no edema, no gallop, no JVD, no murmur Respiratory: chest non-tender, lungs clear, normal breath sounds, no respiratory distress, no accessory muscle use Neurologic/Tendon: normal sensation, normal motor functions, normal tendon functions, responds to pain, no evidence tendon injury Neurologic/Psychiatric: alert, normal mood/affect, oriented x 3 Skin: normal color, warm/dry, other (skin avulsion to the right thumb. bleeding has stopped on arrival to ED.) Procedures/Interventions Wound Location: Upper Extremities Other Wound Location right thumb see images. Wound Length (cm): 0.5 Wound's Depth, Shape: flap Wound Explored: clean Irrigated w/ Saline (ccs): 200 Betadine Prep?: Yes (betasept) Other Closure Supply: Wound Adhesive Progress Wound was cleaned and irrigated with normal saline and Betasept. The wound was approximated and covered with skin affix. She tolerated procedure well. Progress/Results/Core Measures Results/Orders My Orders Vital Signs/I&O Blood Pressure Mean: 114 Departure Impression Primary Impression: Skin avulsion Disposition: 01 HOME, SELF-CARE Condition: Stable/Unchanged Departure-Patient Inst. Decision time for Depature: 19:15 Referrals: VANESSA FLEMING MD (PCP/Family) Primary Care Physician Patient Instructions: Laceration Repair With Glue (DC) Add. Discharge Instructions: Let the glue fall off on its own. Do not use soaps, lotions, ointments directly to the glue as this will cause it to detached to soon. Watch for signs of infection such as increased redness, swelling, drainage, pain. Return back to the emergency room for worsening symptoms or concerns as needed. Follow-up with her primary care as needed. All discharge instructions reviewed with patient and /or family. Voiced understanding. Images Extremities-Upper 1 - avulsion IAN GARCIA May 31, 2018 19:16
[2018-05-31 19:30] VITALS: BP 185/70
== END 2018-05-31 19:31 | disposition home or self-care (01) ==
LOC: EDUNIT# 18:32 → ER 18:33
DX: S61.011A Laceration without foreign body of right thumb without damage to nail, initial encounter (principal); J45.909 Unspecified asthma, uncomplicated; I10 Essential (primary) hypertension; E03.9 Hypothyroidism, unspecified; E11.9 Type 2 diabetes mellitus without complications; Z23 Encounter for immunization; Z88.8 Allergy status to other drugs, medicaments and biological substances; Z79.51 Long term (current) use of inhaled steroids; Z79.82 Long term (current) use of aspirin; W27.4XXA Contact with kitchen utensil, initial encounter; Y92.000 Kitchen of unspecified non-institutional (private) residence as the place of occurrence of the external cause
CPT/HCPCS: 90715

== ENCOUNTER → 2020-05-08 | Outpatient (CLI) | payer MEDICARE ==
[~2020-05-08] MED LIST changes: +AMLO-251 PO; -AMLO10TA7 PO; +ASPI-1238 PO; -ASPI-983 PO; +BISO-3 PO; -BISO1TAB6 PO
--- NOTE | 2020-05-08 14:52 | Diagnostic Imaging Report ---
INDICATION: Left breast mass. Correlation is made with diagnostic mammogram performed earlier the same day. Sonographic interrogation of the area of palpable abnormality in the upper left breast was performed. There is a hypoechoic, lobulated solid mass at the 12:00 location, 4 cm from the nipple. This does show internal vascularity and is concerning for a breast neoplasm. There appear to be associated microcalcifications. This measures 2.5 x 1.5 x 1.8 cm. No other masses are identified. Left axilla is unremarkable. IMPRESSION: BI-RADS Category 4 Lobulated hypoechoic solid mass left breast 12:00 location corresponding to the palpable and mammographic abnormality. This is concerning for a breast neoplasm. Tissue sampling is recommended. This would be amenable to ultrasound-guided core biopsy. ACR BI-RADS Category 4: Suspicious abnormality. Result letter will be mailed to the patient. Note: At least 10% of breast cancer is not imaged by mammography. Dictated by: Dictated on workstation # [id number]
--- NOTE | 2020-05-08 14:58 | Diagnostic Imaging Report ---
INDICATION: Palpable lump left breast. No prior studies are available for comparison. 2-D and 3-D bilateral diagnostic mammography was performed with CAD. There is a lobulated irregular mass in the upper left breast mid depth corresponding to palpable abnormality. There are several microcalcifications associated with the mass. A small nodular density medial to the mass is noted which could represent a small satellite lesion. Right breast is unremarkable. Axillae are unremarkable. IMPRESSION: Lobulated mass upper left breast 12:00 location corresponding to the palpable abnormality. This concerning for a breast neoplasm. Further evaluation with ultrasound is recommended and will be performed today. BI-RADS 0 ACR BI-RADS Category 0: Incomplete. (Needs additional imaging evaluation). Result letter will be mailed to the patient. Note: At least 10% of breast cancer is not imaged by mammography. Dictated by: Dictated on workstation # [id number]
== END ==
LOC: RAD 13:45
PROVIDERS: ATTEND Family Medicine
DX: N63.20 Unspecified lump in the left breast, unspecified quadrant (principal); N63.10 Unspecified lump in the right breast, unspecified quadrant
CPT/HCPCS: 76642; 77066; G0279; 77062

== ENCOUNTER → 2020-05-09 | Outpatient (CLI) | payer MEDICARE ==
[~2020-05-09] MED LIST changes: +LIDOCAINE 1% INJ 20 ML 20 ML VIAL INJ ONE; +LIDOCAINE 1% INJ 20 ML 20 ML VIAL ONE
--- NOTE | 2020-05-09 16:25 | Diagnostic Imaging Report ---
INDICATION: Status post left breast biopsy. Unilateral left 2-D CC and ML mammography was performed after patient underwent ultrasound-guided core biopsy at the 12 o'clock position of the left breast mass. The images again demonstrate the mass in the upper central left breast. There is a marker clip along the posterior margin of the mass. IMPRESSION: A marker clip is located along the posterior margin of the mass, status post ultrasound guided biopsy. Dictated on workstation # [id number]
--- NOTE | 2020-05-09 16:28 | Diagnostic Imaging Report ---
INDICATION: Left breast mass. EXAM: The patient presents for ultrasound-guided biopsy. The patient was brought to the procedure room, placed on the table in the supine position. Ultrasound imaging of the left breast was performed to evaluate appropriate entry site. Left breast was then prepped and draped in the usual sterile fashion. A small amount of 1% lidocaine was utilized for local anesthesia. A total of 4 passes were made into the mass at the 12:00 location of the left breast, 4 cm from the nipple utilizing a 14-gauge Achieve needle. Core biopsies were obtained. A marker clip was then deployed. Hemostasis was obtained using manual compression. The patient tolerated the procedure well and was sent for a post procedure mammogram in satisfactory condition. IMPRESSION: Successful ultrasound guided core biopsy of the lobulated mass at the 12:00 location of the left breast, 4 cm from the nipple. Pathology results are currently pending. Dictated on workstation # [id number]
== END ==
LOC: RAD 11:00
PROVIDERS: ATTEND Family Medicine
DX: N63.25 Unspecified lump in the left breast, overlapping quadrants (principal)
CPT/HCPCS: 19083; 77065; A4648; G0279

== ENCOUNTER → 2020-06-04 | Outpatient (CLI) | payer MEDICARE ==
[~2020-06-04] MED LIST changes: -LIDOCAINE 1% INJ 20 ML 20 ML VIAL INJ ONE; -LIDOCAINE 1% INJ 20 ML 20 ML VIAL ONE
== END ==
LOC: LABNPT 05:58
PROVIDERS: ATTEND Surgery
DX: Z20.822 Contact with and (suspected) exposure to COVID-19 (principal)
CPT/HCPCS: 87635

== ENCOUNTER → 2020-06-10 | Outpatient (CLI) | payer MEDICARE | LOC: LABNPT 08:13 | PROVIDERS: ATTEND Internal Medicine Medical Oncology | DX: Z20.822 Contact with and (suspected) exposure to COVID-19 (principal) | CPT/HCPCS: 87635 ==

== ENCOUNTER 2021-07-16 12:02 | Outpatient (RCR) | payer MEDICARE ==
[2021-07-09 12:07] VITALS: BP 125/58
[2021-07-09] MEDS: FERRIC CARBOXYMALTOSE INJ 750 MG in NS (IVPB) 250 ML IV SCH (12:59)
[~2021-07-16] VITALS: Ht 152.4 cm; Wt 79.5 kg
[~2021-07-16 12:02] MED LIST changes: +LEVO75TA6 PO; +METO1TAB11 PO; +MONT-40 PO; +TELM40TA6 PO
[2021-07-16] MEDS: FERRIC CARBOXYMALTOSE INJ 750 MG in NS (IVPB) 250 ML IV SCH (12:17)
[2021-07-16 12:40] VITALS: BP 111/64
[2021-07-16] MEDS ORDERED: MTP100TCR PO (14:47)
[2021-07-16] MEDS ORDERED: ROSU10TA28 PO (14:47)
[2021-07-16] MEDS ORDERED: ACET-3075 PO (14:47)
[2021-07-16] MEDS ORDERED: LORA-404 PO (14:47)
[2021-07-16] MEDS ORDERED: CHOL200025 PO (14:47)
[2021-07-16] MEDS ORDERED: OMG1KC PO (14:47)
[2021-07-16] MEDS ORDERED: CALC600T91 PO (14:47)
== END 2021-07-26 | disposition home or self-care (01) ==
LOC: SDC 12:02
PROVIDERS: ATTEND Family Medicine
DX: E61.1 Iron deficiency (principal)
CPT/HCPCS: 96365

== ENCOUNTER 2023-01-25 10:52 | Emergency (ER) | payer MEDICARE ==
[~2023-01-25] VITALS: Ht 154.9 cm; Wt 75.7 kg
[~2023-01-25 10:52] MED LIST changes: +ACET-3075 PO; +ALBU8.5H6 IH; +CALC600T91 PO; +CHOL200025 PO; +LORA-404 PO; -LOSA100T57 PO; +LOSA100T58 PO; +MTP100TCR PO; +OMG1KC PO; +ROSU10TA28 PO; -RT-ALBUINH IH
--- NOTE | 2023-01-25 12:12 | ED Back Pain ---
General Chief Complaint: Trauma-Non Activation Stated Complaint: FALL | LOWER BACK AND BILAT HIP PAIN Nursing Triage Note: PT AMB TO [facility]1 ASSISTED WITH WALKER WITH CC OF LOWER BACK PAIN AND HIP PAIN AFTER SHE FELL DOWN 5 STAIRS WHILE VACCUMING ON WEDNESDAY. Source of Information: Patient Exam Limitations: No Limitations History of Present Illness Date Seen by Provider: Jan 25, 2023 Time Seen by Provider: 12:06 Initial Comments 77-year-old female presents to the ER after a fall which occurred on Wednesday. She states that she fell down 5 stairs. She is complaining of lower back pain and bilateral hip pain. States the pain is worse with walking. She denies hitting her head. Allergies and Home Medications Allergies Coded Allergies: nitrous oxide (Verified Allergy, Severe, 06/10/16) SEVERE ASTHMA ATTACK TARAH Inhibitors (Verified Allergy, Mild, 06/10/16) COUGH diazepam (Verified Allergy, Mild, 06/10/16) PSYCHOTIC RESPONSE shellfish derived (Verified Allergy, Mild, Vomiting, 07/09/21) Patient Home Medication List Home Medication List Reviewed: Yes Acetaminophen/Diphenhydramine (Tylenol Pm Ex-Strength Caplet) 500 Mg-25 Mg Tablet, 2 EACH PO DAILY, (Reported) Entered as Reported by: JOSH LOCEK on 07/16/21 1447 Albuterol Sulfate (Ventolin Hfa) 1 Puff Puff, 2 PUFF IH Q4H PRN for SHORTNESS OF BREATH, (Reported) Entered as Reported by: MOSES FAUSTIN on 06/16/16 1307 Amlodipine Besylate (Amlodipine Besylate) 10 Mg Tablet, 10 MG PO DAILY, (Reported) Entered as Reported by: MOSES FAUSTIN on 06/16/16 1307 Calcium Carbonate (Calcium) 600 Mg Calcium (1500 Mg) Tablet, 600 MG PO DAILY, (Reported) Entered as Reported by: JOSH LOCKE on 07/16/21 1447 Cholecalciferol (Vitamin D3) (Vitamin D3) 50 Mcg (2000 Unit) Tablet, 100 MCG PO DAILY, (Reported) Entered as Reported by: JOSH LOCKE on 07/16/21 1447 Fluticasone/Salmeterol (Advair 250-50 Diskus) 1 Each Blst.w.dev, 1 PUFF IH BID, (Reported) Entered as Reported by: MOSES FAUSTIN on 06/16/16 1307 Hydrocodone/Acetaminophen (Hydrocodone-Acetamin 5-325 mg) 5 Mg-325 Mg Tablet, 1 TAB PO Q4H PRN for PAIN-MODERATE (5-7) Prescribed by: Manjula Sexton on 01/25/23 1416 Levothyroxine Sodium (Levothyroxine Sodium) 75 Mcg Tablet, 75 MCG PO DAILY, (Reported) Entered as Reported by: BRONSON NORMAN on 07/09/212023 Lorazepam (Ativan) 0.5 Mg Tablet, 0.5 MG PO HS PRN for ANXIETY, (Reported) Entered as Reported by: JOSH LOCKE on 07/16/21 144 Metformin HCl (Metformin HCl) 1,000 Mg Tablet, 1,000 MG PO BID, (Reported) Entered as Reported by: BRONSON NORMAN on 07/09/212023 Metoprolol Succinate (Metoprolol Succinate) 100 Mg Tab.er.24h, 100 MG PO DAILY, (Reported) Entered as Reported by: JOSH LOCKE on 07/16/21 144 Metoprolol/Hydrochlorothiazide (Metoprolol-Hctz 100-25 mg Tab) 1 Each Tablet, 1 EACH PO DAILY, (Reported) Entered as Reported by: BRONSON NORMAN on 07/09/212023 Montelukast Sodium (Montelukast Sodium) 10 Mg Tablet, 10 MG PO DAILY, (Reported) Entered as Reported by: BRONSON NORMAN on 07/09/212023 [place] 3 Polyunsat Fatty Acids (Fish Oil 1,000 mg Capsule) 340 Mg-1,000 Mg Cap, 3,000 MG PO DAILY, (Reported) Entered as Reported by: JOSH LOCKE on 07/16/211446 Rosuvastatin Calcium (Rosuvastatin Calcium) 10 Mg Tablet, 10 MG PO DAILY, (Reported) Entered as Reported by: JOSH LOCKE on 07/16/211446 Telmisartan (Telmisartan) 40 Mg Tablet, 40 MG PO DAILY, (Reported) Entered as Reported by: BRONSON NORMAN on 07/09/212023 Review of Systems Constitutional: see HPI Past Rcdkzvb-Cxonbq-Bdxuxo Hx Patient Social History Tobacco Use?: No Substance use?: No Alcohol Use?: No Immunizations Up To Date Tetanus Booster (TDap): More than 5yrs Past Medical History Surgery/Hospitalization HX: BREAST CANCER, HYSTERECTOMY, PARATHYROIDECTOMY, PINS IN RIGHT LEG Surgeries: Yes (R ARM PLATE, PARATHYOID GLAND, SCREWS R LEG) Respiratory: Yes Asthma Cardiac: Yes Hypertension Gastrointestinal: No Endocrine: Yes Hypothyroidsim, Diabetes, Non-Insulin dep Cancer: No Psychosocial: No Blood Disorders: No Physical Exam Vital Signs Vital Signs - First Documented 01/25/23 11:17 Pulse 78 B/P (MAP) 158/61 (93) Pulse Ox 96 O2 Delivery Room Air Capillary Refill : Height, Weight, BMI Height: 5'1.00" Weight: 194lbs. 0.0oz. 87.174506lu; 31.00 BMI Method:Stated General Appearance: No Apparent Distress, WD/WN Neck: Normal Inspection, Supple Cardiovascular: Regular Rate, Rhythm Respiratory: Lungs Clear, Normal Breath Sounds, No Accessory Muscle Use, No Respiratory Distress Back: Normal Inspection, Vertebral Tenderness, Other (Muscle tenderness) Extremity: Normal Inspection, Normal Range of Motion, Other (Normal strength in bilateral lower extremities) Neurologic/Psychiatric: Alert, No Motor/Sensory Deficits, Normal Mood/Affect Skin: Normal Color, Warm/Dry Progress/Results/Core Measures Results/Orders My Orders Orders - MANJULA MOHAN APRN Ct Lumbar Spine Wo (01/25/23 12:08) Pelvis/John Hips 5> Views (01/25/23 12:08) Hydrocodone/Apap 5/325 Tablet (Hydrocod (01/25/23 13:00) Medications Given in ED Current Medications Medications Dose Ordered Sig/Cesia Route Start Time Stop Time Status Last Admin Dose Admin Acetaminophen/ Hydrocodone Bitart 1 ea ONCE ONCE PO 01/25/23 13:00 01/25/23 13:01 DC 01/25/23 13:12 1 EA Vital Signs/I&O 01/25/23 01/25/23 11:17 14:25 Pulse 78 90 B/P (MAP) 158/61 (93) 132/74 Pulse Ox 96 O2 Delivery Room Air Blood Pressure Mean: 93 Progress Progress Note : Progress Note Patient seen and evaluated, resting in bed, no acute distress. Based on exam and symptoms, CT of lumbar spine as well as bilateral hips and pelvis ordered. Imaging reviewed. Pelvic x-ray shows mild degenerative changes with no acute osseous abnormality. CT shows acute mild displaced L1 vertebral body fracture with approximately 50% height loss and no retropulsion of fracture fragment there is disc bulging at L4-L5 and L5-S1. Other degenerative changes noted as well. Results discussed with patient. Will have patient follow-up with orthosp ine or neurosurgery, I have provided her with the phone numbers for the clinic in [place] and [place] in [place]. Will discharge with pain medication. Patient stable for discharge. Discharge instructions and return precautions provided. Diagnostic Imaging Diagonstic Imaging: Xray Plain Films/CT/US/NM/MRI: pelvis, hip Comments [facility] [place], [place] NAME: EM [facility]QUE [facility] REC#: [id number] PT STATUS: DEP ER : 1945 PHYSICIAN: MANJULA MOHAN APRN ADMIT DATE: 01/25/23/ER Signed Date of Exam:01/25/23 PELVIS/JOHN HIPS 5> VIEWS HISTORY: Pelvic pain. TECHNIQUE: Frontal view of the pelvis. Frontal and lateral views of the bilateral hips. COMPARISON: None. FINDINGS: No acute fracture is seen in the pelvis or bilateral hips. Alignment is normal. There are mild degenerative changes in the hip joints and in the lower lumbar spine. The sacroiliac joints are patent. IMPRESSION: 1. Mild degenerative changes with no acute osseous abnormality seen in the pelvis or hips. Dictated by: Dictated on workstation # [id number] Dict: 01/25/23 1329 Trans: 01/25/23 1446 [id number] Interpreted by: CHAD BECERRA MD Electronically signed by: CHAD BECERRA MD 01/25/23 1446 Diagonstic Imaging: CT Plain Films/CT/US/NM/MRI: other (lumbar spine) Comments [facility] [place], [place] NAME: EM ROQUE [facility] REC#: [id number] PT STATUS: REG ER : 1945 PHYSICIAN: MANJULA MOHAN APRN ADMIT DATE: 01/25/23/ER Draft Date of Exam:01/25/23 CT LUMBAR SPINE WO Procedure: CT lumbar spine without contrast. Technique: Multiple contiguous axial images were obtained through the lumbar spine without the use of intravenous contrast. Sagittal and coronal reformations were then performed. Auto Exposure Controls were utilized during the CT exam to meet ALARA standards for radiation dose reduction. Date: January 25, 2023. Indication: 77-year-old female, fall. Low back pain. History of breast cancer. Comparison: None. Findings: There is a comminuted mildly displaced L1 vertebral body fracture. There is fracture involvement of the anterior vertebral body margin, superior and inferior endplates, and likely involving the posterior vertebral body margin. There is no fracture involvement of the posterior elements. There is roughly 50% height loss centrally. There is no sizable retropulsed fracture fragment. There is no additional identified acute fracture of the lumbar spine. There is grade 1 anterolisthesis of L4 on L5 relating to facet arthropathy. There is moderate disc height loss at L5-S1. CT is limited for assessment of disc pathology as well as additional nonbony causes of pathology in the spinal canal. There is mild bilateral facet degenerative change at L3-L4. There are advanced facet degenerative changes at L4-L5. There are mild to moderate right facet degenerative changes at L5-S1. There is a diffuse disc bulge at L4-L5. There is likely at least mild to moderate spinal stenosis at this level without CT apparent high-grade spinal stenosis. There is also diffuse disc bulge eccentric to the right at L5-S1 with severe right foraminal narrowing. There is no high-grade spinal stenosis at L5-S1 on CT assessment. The partially imaged portions of the sacroiliac joints are unremarkable. There are atherosclerotic calcifications. Impression: 1. Acute mild displaced L1 vertebral body fracture with approximately 50% height loss and no retropulsed fracture fragment. There is no fracture involvement of the posterior elements. 2. Disc and facet degenerative changes of the lumbar spine as described level by level above. 3. No evidence of metastatic disease to the lumbar spine. Dictated on workstation # [id number] Dict: 01/25/23 1234 Trans: 01/25/23 1242 [facility] [id number] Interpreted by: SHAYLEE TAYLOR MD Electronically signed by: Departure Impression Primary Impression: L1 vertebral fracture Disposition: 01 HOME, SELF-CARE Condition: Stable Departure-Patient Inst. Referrals: VANESSA FLEMING MD (PCP/Family) Primary Care Physician Patient Instructions: Vertebral compression fracture Add. Discharge Instructions: Follow-up with orthospine or neurosurgery. Below are the phone numbers for the [facility] in [place] and [facility] neuro spine. Take [place] as needed for pain. It may be sleepy. It can also cause constipation. You may want to take a stool softener while taking it. Return for severe pain, inability to walk, numbness or tingling in your inner thighs or groin area, bowel or bladder incontinence, or any other new, concerning, or worsening symptoms. [facility] [place] [address] [place] [address], [address] [place] [address] [facility] [address] [place] [address], [address] [place], [place] [address] All discharge instructions reviewed with patient and/or family. Voiced understanding. Scripts Hydrocodone/Acetaminophen (Hydrocodone-Acetamin 5-325 mg) 5 Mg-325 Mg Tablet 1 TAB PO Q4H PRN for PAIN-MODERATE (5-7), #20 TAB 0 Refills Prov: MANJULA MOHAN APRN 01/25/23 MANJULA MOHAN APRN Jan 25, 2023 12:11
--- NOTE | 2023-01-25 12:42 | Diagnostic Imaging Report ---
Procedure: CT lumbar spine without contrast. Technique: Multiple contiguous axial images were obtained through the lumbar spine without the use of intravenous contrast. Sagittal and coronal reformations were then performed. Auto Exposure Controls were utilized during the CT exam to meet ALARA standards for radiation dose reduction. Date: January 25, 2023. Indication: 77-year-old female, fall. Low back pain. History of breast cancer. Comparison: None. Findings: There is a comminuted mildly displaced L1 vertebral body fracture. There is fracture involvement of the anterior vertebral body margin, superior and inferior endplates, and likely involving the posterior vertebral body margin. There is no fracture involvement of the posterior elements. There is roughly 50% height loss centrally. There is no sizable retropulsed fracture fragment. There is no additional identified acute fracture of the lumbar spine. There is grade 1 anterolisthesis of L4 on L5 relating to facet arthropathy. There is moderate disc height loss at L5-S1. CT is limited for assessment of disc pathology as well as additional nonbony causes of pathology in the spinal canal. There is mild bilateral facet degenerative change at L3-L4. There are advanced facet degenerative changes at L4-L5. There are mild to moderate right facet degenerative changes at L5-S1. There is a diffuse disc bulge at L4-L5. There is likely at least mild to moderate spinal stenosis at this level without CT apparent high-grade spinal stenosis. There is also diffuse disc bulge eccentric to the right at L5-S1 with severe right foraminal narrowing. There is no high-grade spinal stenosis at L5-S1 on CT assessment. The partially imaged portions of the sacroiliac joints are unremarkable. There are atherosclerotic calcifications. Impression: 1. Acute mild displaced L1 vertebral body fracture with approximately 50% height loss and no retropulsed fracture fragment. There is no fracture involvement of the posterior elements. 2. Disc and facet degenerative changes of the lumbar spine as described level by level above. 3. No evidence of metastatic disease to the lumbar spine. Dictated by: Dictated on workstation # [id number]
[2023-01-25] MEDS ORDERED: HYDROcodone/ACETAMINOPHEN 5 MG/325 MG TABLET PO ONE (13:00)
--- NOTE | 2023-01-25 13:32 | Diagnostic Imaging Report ---
HISTORY: Pelvic pain. TECHNIQUE: Frontal view of the pelvis. Frontal and lateral views of the bilateral hips. COMPARISON: None. FINDINGS: No acute fracture is seen in the pelvis or bilateral hips. Alignment is normal. There are mild degenerative changes in the hip joints and in the lower lumbar spine. The sacroiliac joints are patent. IMPRESSION: 1. Mild degenerative changes with no acute osseous abnormality seen in the pelvis or hips. Dictated by: Dictated on workstation # [id number]
[2023-01-25] MEDS ORDERED: ACHD5005 PO (14:15)
[2023-01-25 14:25] VITALS: BP 132/74
== END 2023-01-25 14:25 | disposition home or self-care (01) ==
LOC: EDUNIT# 10:52 → ER 10:57
DX: S32.019A Unspecified fracture of first lumbar vertebra, initial encounter for closed fracture (principal); M51.37 Other intervertebral disc degeneration, lumbosacral region; W10.9XXA Fall (on) (from) unspecified stairs and steps, initial encounter
CPT/HCPCS: 72131; 73523